=== PATIENT | female | born 1960 | race Caucasian/White ===

== ENCOUNTER 2019-05-26 21:40 | Emergency (ER) | payer MEDICARE, MEDICAID ==
[2019-05-26 22:28] VITALS: BP 144/72; PULSE 93
--- NOTE | 2019-05-26 22:42 | EDM.PDOC ---
ED HPI GENERAL MEDICAL PROBLEM - General Chief Complaint: Respiratory Problem Stated Complaint: Shortness of breath, laryngitis Time Seen by Provider: 05/26/19 22:25 Source of Information: Reports: Patient History Limitations: Reports: No Limitations - History of Present Illness INITIAL COMMENTS - FREE TEXT/NARRATIVE: Patient states she is been having a sore throat for the last 4 to 5 days with a little bit of shortness of breath and cough ongoing last 2 to 3 days states she has not been taking her inhaler as directed. States did not see her primary care provider even though she thought she needed to she is been too busy in the last 2 to 3 days. She has been placed inpatient hospital 3 to 4 years ago with shortness of breath but is never been intubated She does not use home oxygen although she says her sats are always run around about 90 every time she goes to the hospital our clinic she states she is not having any trouble breathing or feels like she is struggling to get her breath She denies any fever chills night sweats nausea or vomiting states she has had a little bit of a cough but nothing major. She says the main thing is just her losing her voice. Duration: Day(s): Improves with: Reports: Other (Patient states she has no pain) - Related Data Allergies Allergy/AdvReac Type Severity Reaction Status Date / Time No Known Allergies Allergy Verified 05/23/19 11:33 Home Meds: Home Meds Budesonide/Formoterol [Symbicort 160-4.5 MCG] 2 puff INH BID 03/09/14 [History] Calcium Citrate/Vitamin D3 [Calcitrate + Vit D Cap (315 MG/250 UNITS)] 1 each PO BIDMEALS 03/09/14 [History] Cholecalciferol (Vitamin D3) [Vitamin D3] 2,000 unit PO DAILY 03/09/14 [History] Cyanocobalamin (Vitamin B-12) [B-12] 250 mcg PO DAILY 03/09/14 [History] Esomeprazole [NexIUM] 20 mg PO DAILY 03/09/14 [History] Magnesium Oxide 800 mg PO DAILY 03/09/14 [History] Melatonin 5 mg PO BEDTIME 03/09/14 [History] Multivitamin with Minerals [Multiple Vitamin] 1 tab PO DAILY 03/09/14 [History] Sertraline [Zoloft] 200 mg PO BEDTIME 03/09/14 [History] buPROPion [Wellbutrin XL] 300 mg PO DAILY 03/09/14 [History] Acetaminophen 1,000 mg PO TID PRN 11/15/15 [History] Albuterol [Ventolin HFA] 1 inh PO Q4H PRN 11/15/15 [History] Levothyroxine 150 mcg PO DAILY 11/15/15 [History] Umeclidinium [place] [Incruse Ellipta] 1 inh PO DAILY 11/15/15 [History] busPIRone [Buspar] 45 mg PO BEDTIME 11/15/15 [History] Docusate Sodium/Sennosides [Senna Plus] 1 tab PO BID PRN 12/17/15 [History] DULoxetine [Cymbalta] 20 mg PO DAILY 01/06/16 [History] Albuterol Sulfate [Albuterol Sulfate Hfa] 1 puff Q4H PRN 04/18/19 [History] Gabapentin [Neurontin] 100 mg PO BID 04/18/19 [History] Magnesium 500 mg PO BID 04/18/19 [History] Potassium Chloride 2 tab PO BID 04/18/19 [History] Pramipexole Di-HCl [Mirapex] 0.25 mg PO BEDTIME 04/18/19 [History] Umeclidinium Brm/Vilanterol Tr [Anoro Ellipta 62.5-25 MCG] 1 puff DAILY [History] guaiFENesin 5 ml PO Q6H PRN 04/18/19 [History] tiZANidine HCl [Zanaflex] 2 mg PO TID PRN 04/18/19 [History] Past Medical History HEENT History: Reports: Cataract, Other (See Below) Other HEENT History: presbyopia. 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 ASCUS Favor Benign Musculoskeletal History: Reports: Back Pain, Chronic, Fibromyalgia, Other (See Below) Other Musculoskeletal History: leg pain Neurological History: Reports: Other (See Below) Other Neuro History: fibramyalgia Psychiatric History: Reports: Addiction, Anxiety, Depression, Schizophrenia, Suicidal Ideation, Other (See Below) Other Psychiatric History: hx of alcoholism Endocrine/Metabolic History: Reports: Hypothyroidism - Past Surgical History HEENT Surgical History: Reports: Other (See Below) GI Surgical History: Reports: Cholecystectomy Female Surgical History: Reports: Tubal Ligation Musculoskeletal Surgical History: Reports: Hip Replacement Social & Family History - Family History HEENT: Reports: Cataract Other HEENT Family History: mother-cataracts GI: Reports: Other (See Below) Other GI Family History: sister- ciliac Musculoskeletal: Reports: Arthritis Other Musculoskeletal Family History: arthritis- mother Neurological: Reports: Migraines Other Neurological Family History: migraines- sister Endocrine/Metabolic: Reports: Hypothyroidism Other Endocrine/Metabolic Family History: sister and mother - Caffeine Use Caffeine Use: Reports: Soda ED ROS GENERAL - Review of Systems Review Of Systems: See Below Constitutional: Reports: No Symptoms. Denies: Fever, Chills, Malaise, Weakness , Fatigue HEENT: Denies: Dental Pain, Nosebleed, Nose Pain, Rhinitis, Throat Pain, Throat Swelling, Vertigo, Vision Change Respiratory: Reports: Shortness of Breath, Cough. Denies: Wheezing, Pleuritic Chest Pain, Sputum, Hemoptysis Cardiovascular: Reports: No Symptoms Endocrine: Reports: No Symptoms GI/Abdominal: Reports: No Symptoms : Reports: No Symptoms Musculoskeletal: Reports: No Symptoms Skin: Reports: No Symptoms Neurological: Reports: No Symptoms Psychiatric: Reports: No Symptoms Hematologic/Lymphatic: Reports: No Symptoms Immunologic: Reports: No Symptoms ED EXAM, GENERAL - Physical Exam Exam: See Below Exam Limited By: No Limitations General Appearance: Alert, WD/WN, No Apparent Distress, Other (Patient is actively drinking Mountain Dew upon entering the room talks and 20+ word sentences with no acute distress no signs or symptoms of any respiratory distress) Eye Exam: Bilateral Eye: EOMI, PERRL Ears: Normal External Exam, Normal Canal, Hearing Grossly Normal, Normal TMs Nose: Normal Inspection, Normal Mucosa, No Blood Throat/Mouth: Normal Inspection, Normal Lips, Normal Teeth, Normal Gums, Normal Oropharynx, Normal Voice, No Airway Compromise, Other (There is no exudate in line uvula no erythema mild postnasal drainage moist mucous membranes) Head: Atraumatic, Normocephalic Neck: Normal Inspection, Supple, Non-Tender, Full Range of Motion Respiratory/Chest: No Respiratory Distress, Lungs Clear, Normal Breath Sounds, No Accessory Muscle Use, Chest Non-Tender Cardiovascular: Normal Peripheral Pulses, Regular Rate, Rhythm, No Edema, No JVD , No Murmur GI/Abdominal: Normal Bowel Sounds, Soft, Non-Tender, No Organomegaly, No Distention Extremities: Normal Inspection, Normal Range of Motion, Non-Tender, No Pedal Edema Neurological: Alert, Oriented, CN II-XII Intact, Normal Cognition, Normal Gait, No Motor/Sensory Deficits Psychiatric: Normal Affect, Normal Mood Skin Exam: Warm, Dry, Intact, Normal Color Lymphatic: No Adenopathy Course - Vital Signs Text/Narrative:: Patient has Symbicort, albuterol inhaler she was instructed to use them as directed she was then instructed to increase her water intake and decrease the amount of caffeine she will be given Decadron 4 mg Solu-Medrol 125 mg told to follow-up with a primary care provider in the next 24 hours which she states she is okay with Last Recorded V/S: Last Vital Signs Temp 37.6 C 05/26/19 21:40 Pulse 93 05/26/19 21:40 Resp 20 05/26/19 21:40 BP 144/72 H 05/26/19 21:40 Pulse Ox 90 L 05/26/19 21:40 - Orders/Labs/Meds Orders: Active Orders 24 hr Category Date Time Status dexAMETHasone [Dexamethasone] Med 05/26/19 22:36 Once 4 mg IM ONETIME ONE methylPREDNISolone Sod Succ [Solu-MEDROL] Med 05/26/19 22:37 Once 125 mg IM ONETIME ONE Departure - Departure Time of Disposition: 22:50 Disposition: Home, Self-Care 01 Condition: Good Clinical Impression: Laryngitis, SOB (shortness of breath) - Discharge Information *PRESCRIPTION DRUG MONITORING PROGRAM REVIEWED*: No *COPY OF PRESCRIPTION DRUG MONITORING REPORT IN PATIENT AMADOU: No Referrals: Eden Kitchen DO [Primary Care Provider] - Sepsis Event Note - Evaluation Sepsis Screening Result: No Definite Risk - Focused Exam Vital Signs: Vital Signs Temp Pulse Resp BP Pulse Ox 05/26/19 21:40 37.6 C 93 20 144/72 H 90 L Date Exam was Performed: 05/26/19 Time Exam was Performed: 22:37 - Problem List & Annotations (1) Laryngitis SNOMED Code(s): 07284864 Code(s): J04.0 - ACUTE LARYNGITIS Status: Acute Current Visit: Yes (2) SOB (shortness of breath) SNOMED Code(s): 633778736 Code(s): R06.02 - SHORTNESS OF BREATH Status: Acute Current Visit: Yes - My Orders Last 24 Hours: My Active Orders 05/26/19 22:36 dexAMETHasone [Dexamethasone] 4 mg IM ONETIME ONE 05/26/19 22:37 methylPREDNISolone Sod Succ [Solu-MEDROL] 125 mg IM ONETIME ONE - Assessment/Plan Last 24 Hours: My Active Orders 05/26/19 22:36 dexAMETHasone [Dexamethasone] 4 mg IM ONETIME ONE 05/26/19 22:37 methylPREDNISolone Sod Succ [Solu-MEDROL] 125 mg IM ONETIME ONE
[2019-05-26] MEDS: methylPREDNISolone Sodium Succinate 125 MG/2 ML SDV IM ONE (22:45)
[2019-05-26] MEDS: Dexamethasone 4 MG/ML SDV IM ONE (22:46)
== END 2019-05-26 22:54 | disposition home or self-care (01) ==
LOC: VM.ED 21:40
DX: J04.0 Acute laryngitis (principal); R06.02 Shortness of breath; I11.0 Hypertensive heart disease with heart failure; I50.9 Heart failure, unspecified; E78.00 Pure hypercholesterolemia, unspecified; J44.9 Chronic obstructive pulmonary disease, unspecified; K21.9 Gastro-esophageal reflux disease without esophagitis; E03.9 Hypothyroidism, unspecified; F41.9 Anxiety disorder, unspecified; F32.9 Major depressive disorder, single episode, unspecified; M79.7 Fibromyalgia; F20.9 Schizophrenia, unspecified; Z79.51 Long term (current) use of inhaled steroids; Z79.899 Other long term (current) drug therapy; Z79.890 Hormone replacement therapy
CPT/HCPCS: 96372; 99282; 99283-GF; J1100; J2930

== ENCOUNTER 2019-07-10 20:55 | Emergency (ER) | payer MEDICARE, MEDICAID, OTHER ==
[2019-07-10] MEDS ORDERED: Sodium Chloride 0.9% 10 ML Syringe FLUSH PRN (21:00)
[2019-07-10] MEDS ORDERED: Magnesium Sulfate/Water 2 GM in Premix Bag 1 BAG IV ONE (21:02)
[2019-07-10] MEDS ORDERED: Albuterol 0.083% 2.5 MG/3 ML Neb Soln NEB ONE ×3 (21:02→22:22)
[2019-07-10] MEDS ORDERED: Budesonide 0.5 MG/2 ML Neb Susp NEB ONE (21:11)
[2019-07-10] MEDS ORDERED: Morphine 2 MG/ML Syringe IVPUSH ONE (21:21)
[2019-07-10] MEDS ORDERED: cefTRIAXone 2 GM Vial IVPUSH ONE (21:22)
[2019-07-10] MEDS ORDERED: Azithromycin 500 MG in Sodium Chloride 0.9% 250 ML IV ONE (21:22)
[2019-07-10] MEDS ORDERED: methylPREDNISolone Sodium Succinate 125 MG/2 ML SDV IVPUSH ONE (21:30)
[2019-07-10] MEDS ORDERED: Lactated Ringers 1,000 ML IV ONE (21:45)
--- NOTE | 2019-07-10 22:02 | EDM.PDOC ---
ED HPI GENERAL MEDICAL PROBLEM - General Stated Complaint: SOB Time Seen by Provider: 07/10/19 20:55 Source of Information: Reports: EMS History Limitations: Reports: Respiratory Distress - History of Present Illness INITIAL COMMENTS - FREE TEXT/NARRATIVE: Patient comes emergency department today by ambulance with concerns of severe respiratory distress. HPI of this patient is very limited due to the patient's severe respiratory distress upon arrival. According to EMS she has a well- known long-term COPD patient. Yesterday she became more short of breath. She has been using her nebulizers without much relief. Oxygen saturation on EMS arrival was in the 60s. She was given a DuoNeb in the 125 mg of Solu-Medrol IV push. As well as supplemental oxygenation. The rest of the HPI is unobtainable patient severe respiratory distress. Although upon arrival she was able to answer minimal yes and no questions and does not want to be intubated. No fevers no recent travel no exposure to anyone ill. Although she has not been quarantining herself to the house. - Related Data Allergies Allergy/AdvReac Type Severity Reaction Status Date / Time No Known Allergies Allergy Verified 05/23/19 11:33 Home Meds: Home Meds Budesonide/Formoterol [Symbicort 160-4.5 MCG] 2 puff INH BID 03/09/14 [History] Calcium Citrate/Vitamin D3 [Calcitrate + Vit D Cap (315 MG/250 UNITS)] 1 each PO BIDMEALS 03/09/14 [History] Cholecalciferol (Vitamin D3) [Vitamin D3] 2,000 unit PO DAILY 03/09/14 [History] Cyanocobalamin (Vitamin B-12) [B-12] 250 mcg PO DAILY 03/09/14 [History] Esomeprazole [NexIUM] 20 mg PO DAILY 03/09/14 [History] Magnesium Oxide 800 mg PO DAILY 03/09/14 [History] Melatonin 5 mg PO BEDTIME 03/09/14 [History] Multivitamin with Minerals [Multiple Vitamin] 1 tab PO DAILY 03/09/14 [History] Sertraline [Zoloft] 200 mg PO BEDTIME 03/09/14 [History] buPROPion [Wellbutrin XL] 300 mg PO DAILY 03/09/14 [History] Acetaminophen 1,000 mg PO TID PRN 11/15/15 [History] Albuterol [Ventolin HFA] 1 inh PO Q4H PRN 11/15/15 [History] Levothyroxine 150 mcg PO DAILY 11/15/15 [History] Umeclidinium Dawson [Incruse Ellipta] 1 inh PO DAILY 11/15/15 [History] busPIRone [Buspar] 45 mg PO BEDTIME 11/15/15 [History] Docusate Sodium/Sennosides [Senna Plus] 1 tab PO BID PRN 12/17/15 [History] DULoxetine [Cymbalta] 20 mg PO DAILY 01/06/16 [History] Albuterol Sulfate [Albuterol Sulfate Hfa] 1 puff Q4H PRN 04/18/19 [History] Gabapentin [Neurontin] 100 mg PO BID 04/18/19 [History] Magnesium 500 mg PO BID 04/18/19 [History] Potassium Chloride 2 tab PO BID 04/18/19 [History] Pramipexole Di-HCl [Mirapex] 0.25 mg PO BEDTIME 04/18/19 [History] Umeclidinium Brm/Vilanterol Tr [Anoro Ellipta 62.5-25 MCG] 1 puff DAILY [History] guaiFENesin 5 ml PO Q6H PRN 04/18/19 [History] tiZANidine HCl [Zanaflex] 2 mg PO TID PRN 04/18/19 [History] Past Medical History HEENT History: Reports: Cataract, Other (See Below) Other HEENT History: presbyopia. 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 ASCUS Favor Benign Musculoskeletal History: Reports: Back Pain, Chronic, Fibromyalgia, Other (See Below) Other Musculoskeletal History: leg pain Neurological History: Reports: Other (See Below) Other Neuro History: fibramyalgia Psychiatric History: Reports: Addiction, Anxiety, Depression, Schizophrenia, Suicidal Ideation, Other (See Below) Other Psychiatric History: hx of alcoholism Endocrine/Metabolic History: Reports: Hypothyroidism - Past Surgical History HEENT Surgical History: Reports: Other (See Below) GI Surgical History: Reports: Cholecystectomy Female Surgical History: Reports: Tubal Ligation Musculoskeletal Surgical History: Reports: Hip Replacement Social & Family History - Family History HEENT: Reports: Cataract Other HEENT Family History: mother-cataracts GI: Reports: Other (See Below) Other GI Family History: sister- ciliac Musculoskeletal: Reports: Arthritis Other Musculoskeletal Family History: arthritis- mother Neurological: Reports: Migraines Other Neurological Family History: migraines- sister Endocrine/Metabolic: Reports: Hypothyroidism Other Endocrine/Metabolic Family History: sister and mother - Caffeine Use Caffeine Use: Reports: Soda ED ROS GENERAL - Review of Systems Review Of Systems: Unable To Obtain Reason Not Obtained: Severe respiratory distress. ED EXAM, GENERAL - Physical Exam Exam: See Below Free Text/Narrative:: Patient arrives in clear severe respiratory distress. She is barely able to say yes or no questions. She is holding her airway and holding her head up and she is alert. She is quite ashen and somewhat cyanotic from head to toe. She has minimal air movement on her breath sounds bilaterally. Exam Limited By: Respiratory Distress General Appearance: Severe Distress Eye Exam: Bilateral Eye: EOMI, PERRL Ears: Normal External Exam Nose: Normal Inspection Throat/Mouth: No: Normal Inspection (Lips are very dry as well as her mouth. ) Head: Atraumatic, Normocephalic Neck: Normal Inspection, Supple Respiratory/Chest: Chest Non-Tender, Respiratory Distress, Decreased Breath Sounds, Crackles (Fine inspiratory crackles bilaterally bases. ), Wheezing, Accessory Muscle Use, Retractions Cardiovascular: Normal Peripheral Pulses, Regular Rate, Rhythm, Tachycardia GI/Abdominal: Normal Bowel Sounds, Soft (Female) Exam: Deferred Rectal (Female) Exam: Deferred Neurological: Alert Psychiatric: Anxious Skin Exam: Cool, Cyanosis, Diaphoretic Course - Orders/Labs/Meds Orders: Active Orders 24 hr Category Date Time Status BIPAP Adult [RT BiPAP/CPAP] [RC] ASDIRECTED Care 07/10/19 21:14 Active EKG Documentation Completion [RC] STAT Care 07/10/19 21:00 Active RT Aerosol Therapy [RC] ASDIRECTED Care 07/10/19 21:02 Active RT Aerosol Therapy [RC] ASDIRECTED Care 07/10/19 21:11 Active RT Aerosol Therapy [RC] ASDIRECTED Care 07/10/19 21:14 Active RT Aerosol Therapy [RC] ASDIRECTED Care 07/10/19 22:23 Active Chest 1V Frontal [CR] Stat Exams 07/10/19 21:00 Taken CULTURE BLOOD [BC] Stat Lab 07/10/19 21:22 Received CULTURE BLOOD [BC] Stat Lab 07/10/19 22:01 Received Sodium Chloride 0.9% [Saline Flush] Med 07/10/19 21:00 Active 10 ml FLUSH ASDIRECTED PRN Blood Culture x2 Reflex Set [OM.PC] Stat Oth 07/10/19 21:00 Ordered Peripheral IV Insertion Adult [OM.PC] Stat Oth 07/10/19 21:00 Ordered Medication Orders Sodium Chloride (Saline Flush) 10 ml FLUSH ASDIRECTED PRN PRN Reason: Keep Vein Open Labs: Laboratory Tests 07/10/19 07/10/19 07/10/19 Range/Units 21:10 21:22 21:22 WBC 22.0 H* (4.0-10.0) x10^3/uL RBC 4.83 (4.00-5.50) x10^6/uL Hgb 13.3 D (12.0-16.0) g/dL Hct 41.5 (33.0-47.0) % MCV 85.9 D (78.0-93.0) fL MCH 27.5 (26.0-32.0) pg MCHC 32.0 (32.0-36.0) g/dL RDW Coeff of Ksenia 13.5 (10.0-15.0) % Plt Count 186 (130-400) x10^3/uL Neut % (Auto) Delivery Person Lymph % (Auto) Delivery Person Meigs % (Auto) Delivery Person Eos % (Auto) Delivery Person Baso % (Auto) Delivery Person Add Manual Diff Yes Neutrophils % (Manual) 86 H (50-80) % Band Neutrophils % 2 (0-6) % Lymphocytes % (Manual) 10 L (25-50) % Monocytes % (Manual) 1 L (2-11) % Eosinophils % (Manual) 1 (0-4) % Platelet Estimate Adequate POC ABG pH 7.329 L (7.35-7.45) POC ABG pCO2 59 H (35-45) mmHG POC ABG pO2 84 (80-105) mmHG POC ABG HCO3 31 H (22-26) mmol/L POC ABG Total CO2 33 H (23-27) mmol/L POC ABG O2 Sat 95 (95-98) % POC ABG Base Excess 5 H (-2-3) mmol/L POC VBG pH (7.31-7.41) POC VBG pCO2 (41-51) POC VBG pO2 POC VBG HCO3 (23-28) POC VBG Total CO2 (24-29) POC VBG Base Excess ((-2) - 3) O2 Delivery Device POC FiO2 0.40 Sodium 139 (136-145) mmol/L Potassium 4.0 (3.5-5.1) mmol/L Chloride 98 (98-107) mmol/L Carbon Dioxide 30 (21-32) mmol/L Anion Gap 15.0 (10-20) mmol/L BUN 10 (7-18) mg/dL Creatinine 1.0 (0.55-1.02) mg/dL Est Cr Clr Drug Dosing TNP Estimated GFR (MDRD) 57 Glucose 141 H (74-106) mg/dL Lactic Acid (0.4-2.0) mmol/L Calcium 9.1 (8.5-10.1) mg/dL Corrected Calcium 9.34 (8.5-10.1) mg/dL Magnesium (1.8-2.4) mg/dL Total Bilirubin 0.4 (0.2-1.0) mg/dL AST 22 (15-37) U/L ALT 30 (14-59) U/L Alkaline Phosphatase 139 H (46-116) U/L Troponin I < 0.017 (<=0.056) ng/mL C-Reactive Protein 13.2 H (<=0.9) mg/dL NT-Pro-B Natriuret Pep (<=125) pg/mL Total Protein 8.2 (6.4-8.2) g/dL Albumin 3.7 (3.4-5.0) g/dL Globulin 4.5 Albumin/Globulin Ratio 0.82 Urine Color (YELLOW) Urine Appearance (CLEAR) Urine pH (5.0-8.0) Ur Specific [place] Urine Protein (NEGATIVE) mg/dL Urine Glucose (UA) (NEGATIVE) mg/dL Urine Ketones (NEGATIVE) mg/dL Urine Occult Blood (NEGATIVE) Urine Nitrite (NEGATIVE) Urine Bilirubin (NEGATIVE) Urine Urobilinogen (0.2) EU/dL Ur Leukocyte Esterase (NEGATIVE) Urine RBC (NOT SEEN) /HPF Urine WBC (NOT SEEN) /HPF Ur Squamous Epith Cells (NEGATIVE) /HPF Urine Bacteria (NEGATIVE) /HPF Urine Mucus (NEGATIVE) /LPF 07/10/19 07/10/19 07/10/19 Range/Units 21:22 21:22 22:07 WBC (4.0-10.0) x10^3/uL RBC (4.00-5.50) x10^6/uL Hgb (12.0-16.0) g/dL Hct (33.0-47.0) % MCV (78.0-93.0) fL MCH (26.0-32.0) pg MCHC (32.0-36.0) g/dL RDW Coeff of Ksenia (10.0-15.0) % Plt Count (130-400) x10^3/uL Neut % (Auto) Lymph % (Auto) Meigs % (Auto) Eos % (Auto) Baso % (Auto) Add Manual Diff Neutrophils % (Manual) (50-80) % Band Neutrophils % (0-6) % Lymphocytes % (Manual) (25-50) % Monocytes % (Manual) (2-11) % Eosinophils % (Manual) (0-4) % Platelet Estimate POC ABG pH (7.35-7.45) POC ABG pCO2 (35-45) mmHG POC ABG pO2 (80-105) mmHG POC ABG HCO3 (22-26) mmol/L POC ABG Total CO2 (23-27) mmol/L POC ABG O2 Sat (95-98) % POC ABG Base Excess (-2-3) mmol/L POC VBG pH 7.31 (7.31-7.41) POC VBG pCO2 61 H (41-51) POC VBG pO2 39 POC VBG HCO3 31 H (23-28) POC VBG Total CO2 33 H (24-29) POC VBG Base Excess 4 H ((-2) - 3) O2 Delivery Device Bipap POC FiO2 Sodium (136-145) mmol/L Potassium (3.5-5.1) mmol/L Chloride (98-107) mmol/L Carbon Dioxide (21-32) mmol/L Anion Gap (10-20) mmol/L BUN (7-18) mg/dL Creatinine (0.55-1.02) mg/dL Est Cr Clr Drug Dosing Estimated GFR (MDRD) Glucose (74-106) mg/dL Lactic Acid 1.2 (0.4-2.0) mmol/L Calcium (8.5-10.1) mg/dL Corrected Calcium (8.5-10.1) mg/dL Magnesium 1.8 (1.8-2.4) mg/dL Total Bilirubin (0.2-1.0) mg/dL AST (15-37) U/L ALT (14-59) U/L Alkaline Phosphatase (46-116) U/L Troponin I (<=0.056) ng/mL C-Reactive Protein (<=0.9) mg/dL NT-Pro-B Natriuret Pep 151 H (<=125) pg/mL Total Protein (6.4-8.2) g/dL Albumin (3.4-5.0) g/dL Globulin Albumin/Globulin Ratio Urine Color (YELLOW) Urine Appearance (CLEAR) Urine pH (5.0-8.0) Ur Specific [place] Urine Protein (NEGATIVE) mg/dL Urine Glucose (UA) (NEGATIVE) mg/dL Urine Ketones (NEGATIVE) mg/dL Urine Occult Blood (NEGATIVE) Urine Nitrite (NEGATIVE) Urine Bilirubin (NEGATIVE) Urine Urobilinogen (0.2) EU/dL Ur Leukocyte Esterase (NEGATIVE) Urine RBC (NOT SEEN) /HPF Urine WBC (NOT SEEN) /HPF Ur Squamous Epith Cells (NEGATIVE) /HPF Urine Bacteria (NEGATIVE) /HPF Urine Mucus (NEGATIVE) /LPF 07/10/19 Range/Units 23:40 WBC (4.0-10.0) x10^3/uL RBC (4.00-5.50) x10^6/uL Hgb (12.0-16.0) g/dL Hct (33.0-47.0) % MCV (78.0-93.0) fL MCH (26.0-32.0) pg MCHC (32.0-36.0) g/dL RDW Coeff of Ksenia (10.0-15.0) % Plt Count (130-400) x10^3/uL Neut % (Auto) Lymph % (Auto) [place] % (Auto) Eos % (Auto) Baso % (Auto) Add Manual Diff Neutrophils % (Manual) (50-80) % Band Neutrophils % (0-6) % Lymphocytes % (Manual) (25-50) % Monocytes % (Manual) (2-11) % Eosinophils % (Manual) (0-4) % Platelet Estimate POC ABG pH (7.35-7.45) POC ABG pCO2 (35-45) mmHG POC ABG pO2 (80-105) mmHG POC ABG HCO3 (22-26) mmol/L POC ABG Total CO2 (23-27) mmol/L POC ABG O2 Sat (95-98) % POC ABG Base Excess (-2-3) mmol/L POC VBG pH (7.31-7.41) POC VBG pCO2 (41-51) POC VBG pO2 POC VBG HCO3 (23-28) POC VBG Total CO2 (24-29) POC VBG Base Excess ((-2) - 3) O2 Delivery Device POC FiO2 Sodium (136-145) mmol/L Potassium (3.5-5.1) mmol/L Chloride (98-107) mmol/L Carbon Dioxide (21-32) mmol/L Anion Gap (10-20) mmol/L BUN (7-18) mg/dL Creatinine (0.55-1.02) mg/dL Est Cr Clr Drug Dosing Estimated GFR (MDRD) Glucose (74-106) mg/dL Lactic Acid (0.4-2.0) mmol/L Calcium (8.5-10.1) mg/dL Corrected Calcium (8.5-10.1) mg/dL Magnesium (1.8-2.4) mg/dL Total Bilirubin (0.2-1.0) mg/dL AST (15-37) U/L ALT (14-59) U/L Alkaline Phosphatase (46-116) U/L Troponin I (<=0.056) ng/mL C-Reactive Protein (<=0.9) mg/dL NT-Pro-B Natriuret Pep (<=125) pg/mL Total Protein (6.4-8.2) g/dL Albumin (3.4-5.0) g/dL Globulin Albumin/Globulin Ratio Urine Color Yellow (YELLOW) Urine Appearance Clear (CLEAR) Urine pH 5.5 (5.0-8.0) Ur Specific [place] >=1.030 Urine Protein Trace H (NEGATIVE) mg/dL Urine Glucose (UA) Negative (NEGATIVE) mg/dL Urine Ketones Negative (NEGATIVE) mg/dL Urine Occult Blood Negative (NEGATIVE) Urine Nitrite Negative (NEGATIVE) Urine Bilirubin Negative (NEGATIVE) Urine Urobilinogen 0.2 (0.2) EU/dL Ur Leukocyte Esterase Trace H (NEGATIVE) Urine RBC 0-5 (NOT SEEN) /HPF Urine WBC 0-5 (NOT SEEN) /HPF Ur Squamous Epith Cells Moderate H (NEGATIVE) /HPF Urine Bacteria Occasional H (NEGATIVE) /HPF Urine Mucus Rare H (NEGATIVE) /LPF Microbiology 07/10/19 22:30 Nasopharyngeal Swab - Nare, Right Influenza Type A Antigen Screen - Final NEGATIVE INFLUENZA A VIRUS AG REFERENCE RANGE: NEGATIVE 07/10/19 22:30 Nasopharyngeal Swab - Nare, Right Influenza Type B Antigen Screen - Final NEGATIVE INFLUENZA B VIRUS AG REFERENCE RANGE: NEGATIVE Meds: Medications Generic Name Dose Route Start Last Admin Trade Name Freq PRN Reason Stop Dose Admin Sodium Chloride 10 ml 07/10/19 21:00 Saline Flush FLUSH ASDIRECTED PRN Keep Vein Open Discontinued Medications Generic Name Dose Route Start Last Admin Trade Name Freq PRN Reason Stop Dose Admin Albuterol 2.5 mg 07/10/19 21:02 07/10/19 21:08 Proventil Neb Soln [facility] 07/10/19 21:03 2.5 mg ONETIME ONE Administration Albuterol 2.5 mg 07/10/19 21:13 07/10/19 21:10 Proventil Neb Soln [facility] 07/10/19 21:14 2.5 mg ONETIME ONE Administration Albuterol 2.5 mg 07/10/19 22:22 Proventil Neb Soln [facility] 07/10/19 22:23 ONETIME ONE Budesonide 1 mg 07/10/19 21:11 07/10/19 21:22 Pulmicort [facility] 07/10/19 21:12 1 mg ONETIME ONE Administration Ceftriaxone Sodium 2 gm 07/10/19 21:22 07/10/19 21:38 Rocephin IVPUSH 07/10/19 21:23 2 gm STAT ONE Administration Magnesium Sulfate 2 gm/ Premix 50 mls @ 25 mls/hr 07/10/19 21:02 07/10/19 21: 20 IV 07/10/19 23:01 200 mls/hr ONETIME ONE Administration Azithromycin 500 mg/ Sodium 250 mls @ 250 mls/hr 07/10/19 21:22 07/10/19 21: 46 Chloride IV 07/10/19 22:21 250 mls/hr STAT ONE Administration Lactated Ringer's 1,000 mls @ 999 mls/hr 07/10/19 21:45 07/10/19 21:50 Ringers, Lactated IV 07/10/19 22:45 999 mls/hr ONETIME ONE Administration Methylprednisolone Sodium Succinate 125 mg 07/10/19 21:30 07/10/19 21:46 Solu-Medrol IVPUSH 07/10/19 21:31 125 mg ONETIME ONE Administration Morphine Sulfate 2 mg 07/10/19 21:21 07/10/19 21:33 Morphine IVPUSH 07/10/19 21:22 2 mg ONETIME ONE Administration - Radiology Interpretation Free Text/Narrative:: Chest x-ray per radiology shows no significant abnormalities. Stable interstitial fibrosis. Heart size is normal. Old rib fractures with agent pleural scarring. - Re-Assessments/Exams Free Text/Narrative Re-Assessment/Exam: 07/10/19 arrival She has severe respiratory distress hypoxia with a sat probe reading in the 50s on arrival. She is refusing intubation. She was started on BiPAP S/T and EPAP of 15 and an IPAP of 7. Initially started off on 100% oxygenation. Was given DuoNeb nebulizer through the BiPAP as well as 1 mg of budesonide. Is also given an extra 125 mg of Solu-Medrol. Being on the BiPAP for about 10 minutes the patient was much more alert than she was on arrival. Her skin is pink warm and dry but she is still quite tachypneic in the mid 30s. Blood cultures x2 pending. Arterial blood gases show respiratory acidosis with hypercapnia. PO2 84 on the BiPAP. PCo2 59 PH 7.32 She was also given magnesium sulfate 2 g IV piggyback. Morphine 2 mg for comfort Ceftriaxone 2 grams IVP Azithromycin 500mg IVPB 07/10/19 22:12 She is sitting up alert appropriate. Her skin is pink warm and dry. She has much improved lung sounds. She is still quite tachypneic although her accessory muscle use has resolved. Does have a quite elevated white blood cell count of 22. She had previously received Rocephin and Azithromycin as above. 07/11/19 00:28 The patient was swabbed for covid. I did attempt to drop the settings on the patient for her BIpap and she became more tachypneic and sats would drop. I called and spoke with Dr. Flor Pride at [facility] in [place]. HPI ER COURSE findings and concerns were relayed to DR. Pride. Her questions were answered and she was accepted in transfer with continued Bipap enroute to [facility]. I discussed the plan of care with the patient she was comfortable with this plan and her questions answered. As of note her voice is very hoarse and has been for the past month. Departure - Departure Time of Disposition: 23:00 Disposition: DC/Tfer to [facility] 02 Clinical Impression: Hypoxemia, Acute exacerbation of chronic obstructive pulmonary disease (COPD) - Discharge Information Referrals: Eden Kitchen DO [Primary Care Provider] - Forms: ED Department Discharge, Interfacility Transfer LIZZY Critical Care Note - Critical Care Note Total Time (mins): 65 Comments: 65 minutes of CC time in direct management and multiple re-assessments of this patient in rear respiratory failure requiring close monitoring and management of the Bipap and consultation with SPecialist at [facility]. Sepsis Event Note - Focused Exam Date Exam was Performed: 07/11/19 Time Exam was Performed: 00:28 - My Orders Last 24 Hours: My Active Orders 07/10/19 21:00 EKG Documentation Completion [RC] STAT Chest 1V Frontal [CR] Stat Sodium Chloride 0.9% [Saline Flush] 10 ml FLUSH ASDIRECTED PRN Blood Culture x2 Reflex Set [OM.PC] Stat Peripheral IV Insertion Adult [OM.PC] Stat 07/10/19 21:02 RT Aerosol Therapy [RC] ASDIRECTED 07/10/19 21:11 RT Aerosol Therapy [RC] ASDIRECTED 07/10/19 21:14 BIPAP Adult [RT BiPAP/CPAP] [RC] ASDIRECTED RT Aerosol Therapy [RC] ASDIRECTED 07/10/19 21:22 CULTURE BLOOD [BC] Stat 07/10/19 22:01 CULTURE BLOOD [BC] Stat 07/10/19 22:23 RT Aerosol Therapy [RC] ASDIRECTED - Assessment/Plan Last 24 Hours: My Active Orders 07/10/19 21:00 EKG Documentation Completion [RC] STAT Chest 1V Frontal [CR] Stat Sodium Chloride 0.9% [Saline Flush] 10 ml FLUSH ASDIRECTED PRN Blood Culture x2 Reflex Set [OM.PC] Stat Peripheral IV Insertion Adult [OM.PC] Stat 07/10/19 21:02 RT Aerosol Therapy [RC] ASDIRECTED 07/10/19 21:11 RT Aerosol Therapy [RC] ASDIRECTED 07/10/19 21:14 BIPAP Adult [RT BiPAP/CPAP] [RC] ASDIRECTED RT Aerosol Therapy [RC] ASDIRECTED 07/10/19 21:22 CULTURE BLOOD [BC] Stat 07/10/19 22:01 CULTURE BLOOD [BC] Stat 07/10/19 22:23 RT Aerosol Therapy [RC] ASDIRECTED Assessment:: Severe COPD exacerbation with respiratory decompensation requiring Bipap ventilation. Hypoxia Acute on Chronic respiratory hypercapnea Leukocytosis Plan: Transfer to [facility] on Bipap for continued care and management.
[2019-07-10 22:07] LABS: CHLORIDE,CL 98 mmol/L (98-107); SODIUM,NA 139 mmol/L (136-145)
--- NOTE | 2019-07-11 08:08 | CR ---
[id number] RAD/RAD Chest PA or AP 1V EXAM: SINGLE VIEW CHEST. INDICATION: SMALL BOWEL OBSTRUCTION COMPARISON: CORRELATION IS MADE WITH NOVEMBER 15, 2015 FINDINGS: A round density is seen at the left lung base Consider follow-up PA and lateral chest radiograph There is minimal pleural reaction bilaterally The cardiomediastinal contour is stable There is question of bilateral old rib fractures IMPRESSION: FAINT DENSITY LEFT BASE CONSIDER FOLLOW-UP PA AND LATERAL CHEST. Tian Perez MD 07/11/19 0807 Thank you for allowing us to participate in the care of your patient.
== END 2019-07-11 00:10 | disposition short-term general hospital (02) ==
LOC: VM.ED 20:55
DX: J44.1 Chronic obstructive pulmonary disease with (acute) exacerbation (principal); R09.02 Hypoxemia; I11.0 Hypertensive heart disease with heart failure; I50.9 Heart failure, unspecified; E78.00 Pure hypercholesterolemia, unspecified; K21.9 Gastro-esophageal reflux disease without esophagitis; F41.9 Anxiety disorder, unspecified; F32.9 Major depressive disorder, single episode, unspecified; E03.9 Hypothyroidism, unspecified; Z79.899 Other long term (current) drug therapy
CPT/HCPCS: 36415; 71045; 80053; 81001; 82803; 83605; 83735; 83880; 84484; 85025; 86140; 87040; 87804; 87804-59; 93005; 94640; 94660; 96361; 96365; 96367; 96375; 99291; 99291-25; J0456; J0696; J2270; J2930; J3475; J7050; J7120; J7613-GY; U0002

== ENCOUNTER 2019-09-13 07:04 | Emergency (ER) | payer MEDICARE, MEDICAID ==
[2019-09-13 07:43] VITALS: BP 139/75; PULSE 93
--- NOTE | 2019-09-13 08:27 | EDM.PDOC ---
ED HPI GENERAL MEDICAL PROBLEM - General Chief Complaint: Lower Extremity Injury/Pain Stated Complaint: PAIN Time Seen by Provider: 09/13/19 08:05 Source of Information: Reports: Patient History Limitations: Reports: Combative/Threatening - History of Present Illness INITIAL COMMENTS - FREE TEXT/NARRATIVE: The patient comes to the emergency department today from home with complaints of left buttocks and leg pain. The patient reports that for the past 7 years she has had pain in her left leg. Approximately 7 years ago she had some type of accident or fall where she broke her femur. Since that time she has had consistent chronic pain in the left leg. Over the past 7 years the pain is slowly change from just the mid lateral aspect of the femur and is now gone to her buttocks and radiates down the middle aspect of her left buttocks and down the lateral aspect of her left leg. She has seen her primary care for this multiple times over the past 7 years. Her pain is really no worse today than it has been for the past 7 years. She has no recent falls trauma. She has no paresthesias over the lower extremities. No change in the functionality of her lower extremities. No loss of bowel or bladder. emergency department today after 7 years of this chronic pain that is no worse today because she is tired of the pain and does not know what to do about it. She has not seen her primary care provider since June. Has not taken anything for pain. She has never seen physical therapy for this pain. She has received x-rays of the femur but no other work-up in the past 7 years she reports. Leg Pain Score (Numeric/FACES): 7 - Related Data Allergies Allergy/AdvReac Type Severity Reaction Status Date / Time No Known Allergies Allergy Verified 09/13/19 07:55 Home Meds: Home Meds Budesonide/Formoterol [Symbicort 160-4.5 MCG] 2 puff INH BID 03/09/14 [History] Calcium Citrate/Vitamin D3 [Calcitrate + Vit D Cap (315 MG/250 UNITS)] 1 each PO BIDMEALS 03/09/14 [History] Cholecalciferol (Vitamin D3) [Vitamin D3] 2,000 unit PO DAILY 03/09/14 [History] Cyanocobalamin (Vitamin B-12) [B-12] 250 mcg PO DAILY 03/09/14 [History] Esomeprazole [NexIUM] 20 mg PO DAILY 03/09/14 [History] Magnesium Oxide 800 mg PO DAILY 03/09/14 [History] Melatonin 5 mg PO BEDTIME 03/09/14 [History] Multivitamin with Minerals [Multiple Vitamin] 1 tab PO DAILY 03/09/14 [History] Sertraline [Zoloft] 200 mg PO BEDTIME 03/09/14 [History] buPROPion [Wellbutrin XL] 300 mg PO DAILY 03/09/14 [History] Acetaminophen 1,000 mg PO TID PRN 11/15/15 [History] Albuterol [Ventolin HFA] 1 inh PO Q4H PRN 11/15/15 [History] Levothyroxine 150 mcg PO DAILY 11/15/15 [History] Umeclidinium [place] [Incruse Ellipta] 1 inh PO DAILY 11/15/15 [History] busPIRone [Buspar] 45 mg PO BEDTIME 11/15/15 [History] Docusate Sodium/Sennosides [Senna Plus] 1 tab PO BID PRN 12/17/15 [History] DULoxetine [Cymbalta] 20 mg PO DAILY 01/06/16 [History] Albuterol Sulfate [Albuterol Sulfate Hfa] 1 puff Q4H PRN 04/18/19 [History] Gabapentin [Neurontin] 100 mg PO BID 04/18/19 [History] Magnesium 500 mg PO BID 04/18/19 [History] Potassium Chloride 2 tab PO BID 04/18/19 [History] Pramipexole Di-HCl [Mirapex] 0.25 mg PO BEDTIME 04/18/19 [History] Umeclidinium Brm/Vilanterol Tr [Anoro Ellipta 62.5-25 MCG] 1 puff DAILY [History] guaiFENesin 5 ml PO Q6H PRN 04/18/19 [History] tiZANidine HCl [Zanaflex] 2 mg PO TID PRN 04/18/19 [History] Past Medical History HEENT History: Reports: Cataract, Other (See Below) Other HEENT History: presbyopia. myopia Cardiovascular History: Reports: Heart Failure, High Cholesterol, Hypertension, SOB on Exertion Respiratory History: Reports: COPD, PE, Sleep Apnea, Other (See Below) Other Respiratory History: oxygen dependent Gastrointestinal History: Reports: Gastritis, GERD, Hepatitis, Hiatal Hernia Genitourinary History: Reports: Other (See Below) Other Genitourinary History: stress incontinence HADOOP CONSULTANT History: Reports: Other (See Below) Other HADOOP CONSULTANT History: metrorrhagia. ASCUS Favor Benign Musculoskeletal History: Reports: Back Pain, Chronic, Fibromyalgia, Other (See Below) Other Musculoskeletal History: leg pain Neurological History: Reports: Other (See Below) Other Neuro History: fibramyalgia Psychiatric History: Reports: Addiction, Anxiety, Depression, Schizophrenia, Suicidal Ideation, Other (See Below) Other Psychiatric History: hx of alcoholism Endocrine/Metabolic History: Reports: Hypothyroidism - Past Surgical History HEENT Surgical History: Reports: Other (See Below) GI Surgical History: Reports: Cholecystectomy Female Surgical History: Reports: Tubal Ligation Musculoskeletal Surgical History: Reports: Hip Replacement Social & Family History - Family History HEENT: Reports: Cataract Other HEENT Family History: mother-cataracts GI: Reports: Other (See Below) Other GI Family History: sister- ciliac Musculoskeletal: Reports: Arthritis Other Musculoskeletal Family History: arthritis- mother Neurological: Reports: Migraines Other Neurological Family History: migraines- sister Endocrine/Metabolic: Reports: Hypothyroidism Other Endocrine/Metabolic Family History: sister and mother - Tobacco Use Smoking Status *Q: Former Smoker Used Tobacco, but Quit: Yes Month/Year Tobacco Last Used: 2016 - Caffeine Use Caffeine Use: Reports: Soda - Recreational Drug Use Recreational Drug Use: No Review of Systems - Review of Systems Review Of Systems: Unable To Obtain Reason Not Obtained: Pt became very upset during the history taking and eloped ED EXAM, GENERAL - Physical Exam Exam: Not Obtained Reason Not Obtained: The patient became very upset agitated during the HPI and eloped. Course - Vital Signs Last Recorded V/S: Last Vital Signs Temp 36.8 C 09/13/19 07:40 Pulse 93 09/13/19 07:40 Resp 22 H 09/13/19 07:40 BP 139/75 09/13/19 07:40 Pulse Ox 94 L 09/13/19 07:40 - Re-Assessments/Exams Free Text/Narrative Re-Assessment/Exam: 09/13/19 08:17 During the HPI discussion with the patient she became very upset agitated rude and yelling at this provider when I asked what was different today that brought her to the emergency department after 7 years of the same pain. She became very agitated would not allow me to ask any further questions by everytime I would start to ask question she would start lecturing me about how I don't care about her pain or any patient. She started to demean me and lecture me about me not caring about her chronic pain. Anytime that I attempted to ask any further questions she would cut me off not allow to ask any questions and lecture me about how I don't care about her pain. She would not allow any physical exam and started to yell at this provider. I told her that I had done nothing to offend her other than try to find out her history of her complaint and she is refusing to allow the visit to continue. I told her that clearly she is quite upset and uncomfortable and I will step out to allow her to calm and we can start the visit again when she is willing to discuss her concerns without being demeaning rude and what I felt was aggressive behavior towards myself. She chose to leave the emergency department at that time walking without any difficulty disability yelling screaming and hollering at the staff. The patient left prior to AMA discussion from this provider. She left prior to the nurse being able to get AMA information. 09/13/19 08:30 Departure - Departure Time of Disposition: 08:25 Disposition: Eloped 07 Clinical Impression: Chronic lower limb pain Qualifiers: Laterality: left Qualified Code(s): M79.605 - Pain in left leg; G89.29 - Other chronic pain - Discharge Information Referrals: Eden Kitchen DO [Primary Care Provider] - Additional Instructions: The patient eloped prior any discharge planning. Sepsis Event Note - Evaluation Sepsis Screening Result: No Definite Risk - Focused Exam Vital Signs: Vital Signs Temp Pulse Resp BP Pulse Ox 09/13/19 07:40 36.8 C 93 22 H 139/75 94 L Date Exam was Performed: 09/13/19 Time Exam was Performed: 08:13 - Assessment/Plan Assessment:: Difficult to determine as the patient eloped during the care but appears to be Chronic left buttocks leg pain most consistent with sciatica. ALthough unable to complete the HPI a physical exam or planning as the patient became agitated and eloped during the visit.
== END 2019-09-13 08:15 | disposition left against medical advice (07) ==
LOC: VM.ED 07:04
DX: M79.605 Pain in left leg (principal); G89.29 Other chronic pain; I11.0 Hypertensive heart disease with heart failure; I50.9 Heart failure, unspecified; E78.00 Pure hypercholesterolemia, unspecified; E03.9 Hypothyroidism, unspecified; K21.9 Gastro-esophageal reflux disease without esophagitis; J44.9 Chronic obstructive pulmonary disease, unspecified; F32.9 Major depressive disorder, single episode, unspecified; F41.9 Anxiety disorder, unspecified; Z86.711 Personal history of pulmonary embolism; Z87.891 Personal history of nicotine dependence; Z79.899 Other long term (current) drug therapy
CPT/HCPCS: 99283; 99284-GF

== ENCOUNTER 2019-09-15 10:08 | Emergency (ER) | payer MEDICARE, MEDICAID ==
--- NOTE | 2019-09-15 11:04 | EDM.PDOC ---
ED HPI GENERAL MEDICAL PROBLEM - General Chief Complaint: Lower Extremity Injury/Pain Stated Complaint: pain in legs Time Seen by Provider: 09/15/19 10:12 Source of Information: Reports: Patient History Limitations: Reports: No Limitations - History of Present Illness INITIAL COMMENTS - FREE TEXT/NARRATIVE: Pt. presents to ER from clinic with complaints of chronic lower extremity pain, L>R. Pt. has a history of chronic extremity pain and and radiculopathy thought to be secondary to L sided SI joint. She also has a history of L hip fx. with L sided IM nailing in 2012. She feels as though there is some problem with the L hip. She states that she has fallen in the past, but states that she has not had any imaging performed of the joint since that time. Pt. is currently being treated for COPD exacerbation. She has been on cefuroxime for 1 week. She was not started on a steroid. Clinic was concerned because her O2 sat was 86% at the clinic. It was 94% on arrival to ER. She is consistently in the low 90s as noted in her clinic visit notes. She has a history of YVONNE, COPD. She denies any significant shortness of breath. No fever or chills. She states that she has been experiencing the extremity pain and radiculopathy for 7 years, and has seen PT and pain management, but not for some time. Onset: Today Onset Date: 09/15/19 Location: Reports: Back, Lower Extremity, Left, Lower Extremity, Right Quality: Reports: Ache Bilateral Upper Leg Pain Score (Numeric/FACES): 5 - Related Data Allergies Allergy/AdvReac Type Severity Reaction Status Date / Time pravastatin Allergy Other Verified 09/15/19 10:33 Home Meds: Home Meds Budesonide/Formoterol [Symbicort 160-4.5 MCG] 2 puff INH BID 03/09/14 [History] Calcium Citrate/Vitamin D3 [Calcitrate + Vit D Cap (315 MG/250 UNITS)] 1 each PO BIDMEALS 03/09/14 [History] Cholecalciferol (Vitamin D3) [Vitamin D3] 2,000 unit PO DAILY 03/09/14 [History] Cyanocobalamin (Vitamin B-12) [B-12] 250 mcg PO DAILY 03/09/14 [History] Esomeprazole [NexIUM] 20 mg PO DAILY 03/09/14 [History] Magnesium Oxide 800 mg PO DAILY 03/09/14 [History] Melatonin 5 mg PO BEDTIME 03/09/14 [History] Multivitamin with Minerals [Multiple Vitamin] 1 tab PO DAILY 03/09/14 [History] Sertraline [Zoloft] 200 mg PO BEDTIME 03/09/14 [History] buPROPion [Wellbutrin XL] 300 mg PO DAILY 03/09/14 [History] Acetaminophen 1,000 mg PO TID PRN 11/15/15 [History] Albuterol [Ventolin HFA] 1 inh PO Q4H PRN 11/15/15 [History] Levothyroxine 150 mcg PO DAILY 11/15/15 [History] Umeclidinium [place] [Incruse Ellipta] 1 inh PO DAILY 11/15/15 [History] busPIRone [Buspar] 45 mg PO BEDTIME 11/15/15 [History] Docusate Sodium/Sennosides [Senna Plus] 1 tab PO BID PRN 12/17/15 [History] DULoxetine [Cymbalta] 20 mg PO DAILY 01/06/16 [History] Albuterol Sulfate [Albuterol Sulfate Hfa] 1 puff Q4H PRN 04/18/19 [History] Gabapentin [Neurontin] 100 mg PO BID 04/18/19 [History] Magnesium 500 mg PO BID 04/18/19 [History] Potassium Chloride 2 tab PO BID 04/18/19 [History] Pramipexole Di-HCl [Mirapex] 0.25 mg PO BEDTIME 04/18/19 [History] Umeclidinium Brm/Vilanterol Tr [Anoro Ellipta 62.5-25 MCG] 1 puff DAILY [History] guaiFENesin 5 ml PO Q6H PRN 04/18/19 [History] tiZANidine HCl [Zanaflex] 2 mg PO TID PRN 04/18/19 [History] Past Medical History HEENT History: Reports: Cataract, Other (See Below) Other HEENT History: presbyopia. myopia Cardiovascular History: Reports: Heart Failure, High Cholesterol, Hypertension, SOB on Exertion Respiratory History: Reports: COPD, PE, Sleep Apnea, Other (See Below) Other Respiratory History: oxygen dependent Gastrointestinal History: Reports: Gastritis, GERD, Hepatitis, Hiatal Hernia Genitourinary History: Reports: Other (See Below) Other Genitourinary History: stress incontinence NEUROSURGEON History: Reports: Other (See Below) Other NEUROSURGEON History: metrorrhagia. ASCUS Favor Benign Musculoskeletal History: Reports: Back Pain, Chronic, Fibromyalgia, Other (See Below) Other Musculoskeletal History: leg pain Neurological History: Reports: Other (See Below) Other Neuro History: fibramyalgia Psychiatric History: Reports: Addiction, Anxiety, Depression, Schizophrenia, Suicidal Ideation, Other (See Below) Other Psychiatric History: hx of alcoholism Endocrine/Metabolic History: Reports: Hypothyroidism - Past Surgical History HEENT Surgical History: Reports: Other (See Below) GI Surgical History: Reports: Cholecystectomy Female Surgical History: Reports: Tubal Ligation Musculoskeletal Surgical History: Reports: Hip Replacement Social & Family History - Family History HEENT: Reports: Cataract Other HEENT Family History: mother-cataracts GI: Reports: Other (See Below) Other GI Family History: sister- ciliac Musculoskeletal: Reports: Arthritis Other Musculoskeletal Family History: arthritis- mother Neurological: Reports: Migraines Other Neurological Family History: migraines- sister Endocrine/Metabolic: Reports: Hypothyroidism Other Endocrine/Metabolic Family History: sister and mother - Caffeine Use Caffeine Use: Reports: Soda ED ROS GENERAL - Review of Systems Review Of Systems: See Below Constitutional: Reports: No Symptoms HEENT: Reports: No Symptoms Respiratory: Reports: Other (See HPI) Cardiovascular: Reports: No Symptoms Endocrine: Reports: No Symptoms GI/Abdominal: Reports: No Symptoms : Reports: No Symptoms Musculoskeletal: Reports: Back Pain, Leg Pain Skin: Reports: No Symptoms Neurological: Reports: Other (L sided radiculopathy) Psychiatric: Reports: No Symptoms Hematologic/Lymphatic: Reports: No Symptoms Immunologic: Reports: No Symptoms ED EXAM, GENERAL - Physical Exam Exam: See Below Exam Limited By: No Limitations General Appearance: Alert, WD/WN, No Apparent Distress Neck: Normal Inspection, Supple, Non-Tender, Full Range of Motion Respiratory/Chest: No Respiratory Distress, Lungs Clear, Normal Breath Sounds, No Accessory Muscle Use, Chest Non-Tender Cardiovascular: Normal Peripheral Pulses, Regular Rate, Rhythm, No Edema, No Gallop, No JVD, No Murmur Back Exam: Normal Inspection, Decreased Range of Motion, Muscle Spasm Extremities: Normal Inspection, Normal Range of Motion, Leg Pain (unable to reproduce. Pain runs down posterior aspect of L leg.) Neurological: Alert, Oriented, CN II-XII Intact, Normal Cognition, No Motor/ Sensory Deficits Psychiatric: Anxious Course - Vital Signs Last Recorded V/S: Last Vital Signs Temp 36.8 C 09/15/19 10:12 Pulse 97 09/15/19 10:12 Resp 20 09/15/19 10:12 BP 172/79 H 09/15/19 10:12 Pulse Ox 94 L 09/15/19 10:12 Departure - Departure Time of Disposition: 11:19 Disposition: Home, Self-Care 01 Clinical Impression: Radiculopathy, COPD exacerbation - Discharge Information Instructions: Chronic Obstructive Pulmonary Disease Exacerbation, Sciatica Referrals: Eden Kitchen DO [Primary Care Provider] - Forms: ED Department Discharge Additional Instructions: Home to rest. Prednisone 40mg once daily [place] 5/325mg 1 every 6 hours Bring your referral to the physical therapist of your choice. Sepsis Event Note - Evaluation Sepsis Screening Result: No Definite Risk - Focused Exam Vital Signs: Vital Signs Temp Pulse Resp BP Pulse Ox 09/15/19 10:12 36.8 C 97 20 172/79 H 94 L Date Exam was Performed: 09/15/19 Time Exam was Performed: 11:18 - Assessment/Plan Plan: Home to rest. Prednisone 40mg once daily [place] 5/325mg 1 every 6 hours Bring your referral to the physical therapist of your choice.
--- NOTE | 2019-09-15 11:10 | CR ---
[id number] RAD/RAD Femur Left 2V EXAM: RAD Femur Left 2V INDICATION: Fall with left lower extremity pain. COMPARISON: None. DISCUSSION: Healed proximal femur fracture status post intramedullary fixation. No evident hardware complication. Mild to moderate osteoarthritis of the hip. No acute fracture or dislocation is identified. IMPRESSION: 1. No acute findings. Lonnie Burgos MD 09/15/19 [id number] Thank you for allowing us to participate in the care of your patient.
--- NOTE | 2019-09-15 11:11 | CR ---
[id number] RAD/RAD Pelvis 1-2V EXAM: AP PELVIS CLINICAL DATA: PELVIC PAIN. COMPARISON: None. FINDINGS: Intramedullary zaira fixation of the left femur. Mild to moderate osteoarthritis of both hips. No acute fracture or dislocation is identified. IMPRESSION: 1. Mild to moderate osteoarthritis of the hips. No acute findings. Lonnie Burgos MD 09/15/19 [id number] Thank you for allowing us to participate in the care of your patient.
[2019-09-15 11:50] VITALS: BP 164/88; PULSE 91
== END 2019-09-15 11:24 | disposition home or self-care (01) ==
LOC: VM.ED 10:08
DX: M54.10 Radiculopathy, site unspecified (principal); J44.1 Chronic obstructive pulmonary disease with (acute) exacerbation; I11.0 Hypertensive heart disease with heart failure; I50.9 Heart failure, unspecified; E78.00 Pure hypercholesterolemia, unspecified; E03.9 Hypothyroidism, unspecified; K21.9 Gastro-esophageal reflux disease without esophagitis; Z86.711 Personal history of pulmonary embolism; Z88.8 Allergy status to other drugs, medicaments and biological substances
CPT/HCPCS: 72170; 99283-25; 99284-GF

== ENCOUNTER 2020-04-19 11:34 | Inpatient (IN) | payer MEDICARE, MEDICAID ==
[2020-04-19] MEDS ORDERED: Dexamethasone 4 MG/ML 5 ML MDV IV ONE (11:58)
[2020-04-19] MEDS ORDERED: Lactated Ringers 1,000 ML IV ONE (11:58)
--- NOTE | 2020-04-19 12:05 | EDM.PDOC ---
ED HPI GENERAL MEDICAL PROBLEM - General Chief Complaint: Respiratory Problem Stated Complaint: COPD O2-70% Time Seen by Provider: 04/19/20 11:39 Source of Information: Reports: Patient - History of Present Illness INITIAL COMMENTS - FREE TEXT/NARRATIVE: Mandy is a 60 y/o female who presents to the ER with SOB and hypoxia. She has been ill for about 2 weeks with increased coughing and SOB. She was seen at the clinic 1 week ago and put on prednisone. This has not really helped much and this AM she felt worse. She was at the clinic seeing Alanis Holly PA-C and her stats were noted to be 70% on room air, so she was sent here to the ER. On arrival here her sats were in the 85-86% range on room air and she was markedly SOb. Patient able to report that she has had increased mucous production and SOB over the last week. She denies any history of COVID exposure. - Related Data Allergies Allergy/AdvReac Type Severity Reaction Status Date / Time pravastatin Allergy Other Verified 04/19/20 12:25 Home Meds: Home Meds Budesonide/Formoterol [Symbicort 160-4.5 MCG] 2 puff INH BID 03/09/14 [History] Calcium Citrate/Vitamin D3 [Calcitrate + Vit D Cap (315 MG/250 UNITS)] 1 each PO BIDMEALS 03/09/14 [History] Cholecalciferol (Vitamin D3) [Vitamin D3] 2,000 unit PO DAILY 03/09/14 [History] Cyanocobalamin (Vitamin B-12) [B-12] 250 mcg PO DAILY 03/09/14 [History] Esomeprazole [NexIUM] 20 mg PO DAILY 03/09/14 [History] Magnesium Oxide 800 mg PO DAILY 03/09/14 [History] Melatonin 5 mg PO BEDTIME 03/09/14 [History] Multivitamin with Minerals [Multiple Vitamin] 1 tab PO DAILY 03/09/14 [History] Sertraline [Zoloft] 200 mg PO BEDTIME 03/09/14 [History] buPROPion [Wellbutrin XL] 300 mg PO DAILY 03/09/14 [History] Acetaminophen 1,000 mg PO TID PRN 11/15/15 [History] Albuterol [Ventolin HFA] 1 inh PO Q4H PRN 11/15/15 [History] Levothyroxine 150 mcg PO DAILY 11/15/15 [History] Umeclidinium [place] [Incruse Ellipta] 1 inh PO DAILY 11/15/15 [History] busPIRone [Buspar] 45 mg PO BEDTIME 11/15/15 [History] Docusate Sodium/Sennosides [Senna Plus] 1 tab PO BID PRN 12/17/15 [History] DULoxetine [Cymbalta] 20 mg PO DAILY 01/06/16 [History] Albuterol Sulfate [Albuterol Sulfate Hfa] 1 puff Q4H PRN 04/18/19 [History] Gabapentin [Neurontin] 100 mg PO BID 04/18/19 [History] Magnesium 500 mg PO BID 04/18/19 [History] Potassium Chloride 2 tab PO BID 04/18/19 [History] Pramipexole Di-HCl [Mirapex] 0.25 mg PO BEDTIME 04/18/19 [History] Umeclidinium Brm/Vilanterol Tr [Anoro Ellipta 62.5-25 MCG] 1 puff DAILY 04/18/19 [History] guaiFENesin 5 ml PO Q6H PRN 04/18/19 [History] tiZANidine HCl [Zanaflex] 2 mg PO TID PRN 04/18/19 [History] Past Medical History HEENT History: Reports: Cataract, Other (See Below) Other HEENT History: presbyopia. myopia Cardiovascular History: Reports: Heart Failure, High Cholesterol, Hypertension, SOB on Exertion Respiratory History: Reports: COPD, PE, Sleep Apnea, Other (See Below) Other Respiratory History: oxygen dependent Gastrointestinal History: Reports: Gastritis, GERD, Hepatitis, Hiatal Hernia Genitourinary History: Reports: Other (See Below) Other Genitourinary History: stress incontinence DOCUMENT SPECIALIST History: Reports: Other (See Below) Other DOCUMENT SPECIALIST History: metrorrhagia. ASCUS Favor Benign Musculoskeletal History: Reports: Back Pain, Chronic, Fibromyalgia, Other (See Below) Other Musculoskeletal History: leg pain Neurological History: Reports: Other (See Below) Other Neuro History: fibramyalgia Psychiatric History: Reports: Addiction, Anxiety, Depression, Schizophrenia, Suicidal Ideation, Other (See Below) Other Psychiatric History: hx of alcoholism Endocrine/Metabolic History: Reports: Hypothyroidism - Past Surgical History HEENT Surgical History: Reports: Other (See Below) GI Surgical History: Reports: Cholecystectomy Female Surgical History: Reports: Tubal Ligation Musculoskeletal Surgical History: Reports: Hip Replacement Social & Family History - Family History HEENT: Reports: Cataract Other HEENT Family History: mother-cataracts GI: Reports: Other (See Below) Other GI Family History: sister- ciliac Musculoskeletal: Reports: Arthritis Other Musculoskeletal Family History: arthritis- mother Neurological: Reports: Migraines Other Neurological Family History: migraines- sister Endocrine/Metabolic: Reports: Hypothyroidism Other Endocrine/Metabolic Family History: sister and mother - Caffeine Use Caffeine Use: Reports: Soda Review of Systems - Review of Systems Review Of Systems: See Below Constitutional: Reports: Diaphoresis Eyes: Reports: No Symptoms Ears: Reports: No Symptoms Nose: Reports: No Symptoms Mouth/Throat: Reports: No Symptoms Respiratory: Reports: Shortness of Breath, Cough, Sputum (increased amount and viscosity, no color change) Cardiovascular: Reports: No Symptoms GI/Abdominal: Reports: No Symptoms Genitourinary: Reports: No Symptoms Musculoskeletal: Reports: No Symptoms Skin: Reports: No Symptoms Neurological: Reports: No Symptoms Psychiatric: Reports: No Symptoms ED EXAM, GENERAL - Physical Exam Exam: See Below General Appearance: Alert, WD/WN, No Apparent Distress Ears: Normal External Exam, Normal Canal, Hearing Grossly Normal, Normal TMs Nose: Normal Inspection, Normal Mucosa Throat/Mouth: Other (Lips dry and flaky, tongue has white appearance, but slightly dry) Head: Atraumatic, Normocephalic Neck: Normal Inspection, Supple Respiratory/Chest: Decreased Breath Sounds, Other (SOB with exercise or talking) Cardiovascular: Normal Peripheral Pulses, Regular Rate, Rhythm, No Edema GI/Abdominal: Normal Bowel Sounds, Soft, No Mass (Female) Exam: Deferred Rectal (Female) Exam: Deferred Back Exam: Normal Inspection Extremities: Non-Tender, No Pedal Edema, Normal Capillary Refill Neurological: Alert, Oriented, CN II-XII Intact, No Motor/Sensory Deficits Psychiatric: Anxious Skin Exam: Warm, Dry, Normal Color Lymphatic: No Adenopathy #1 Interpretation EKG Date: 04/19/20 Time: 12:01 Rhythm: NSR Rate (Beats/Min): 87 [place]: Normal P-Wave: Present QRS: Normal ST-T: Normal QT: Normal Comparison: NA - No Prior EKG EKG Interpretation Comments: Compared to 07/10/2019 Study Course - Vital Signs Text/Narrative:: 1139 Patient was seen by the [employer]. Labs, CXR, and EKG ordered. She was given a Duoneb, IV fluids, and Dexamethsone 8 mg IVP. She was placed on 2 liters of oxygen per nasal cannula on arrival and her sats increased to 95-96%. 1205 [employer] decreased her oxygen to 1 liter while assessing and noted that she would remain at 90% on liter, but with any exertion she dropped into the mid 80s. Oxygen 1300 Note +influenza B. Labs reviewed. Awaiting CXR report. 1315 Dr Eden Kitchen contacted and case discussed. IV fluids that were previously ordered were stopped after about 750ml infused. Patient tells [employer] that she did not take her Lasix this AM because she had company. Lasix 40mg IVP ordered. Plan Acute admission per Dr Kitchen. Last Recorded V/S: Last Vital Signs Temp 36.7 C 04/19/20 11:53 Pulse 89 04/19/20 13:10 Resp 20 04/19/20 13:10 BP 170/85 H 04/19/20 13:10 Pulse Ox 92 L 04/19/20 13:10 - Orders/Labs/Meds Orders: Active Orders 24 hr Category Date Time Status Patient Status [ADT] Routine ADT 04/19/20 13:16 Ordered EKG Documentation Completion [RC] STAT Care 04/19/20 11:56 Active CULTURE BLOOD [BC] Stat Lab 04/19/20 12:40 Received CULTURE BLOOD [BC] Stat Lab 04/19/20 12:44 Received CULTURE URINE [RM] Stat Lab 04/19/20 13:03 Received Sodium Chloride 0.9% [Saline Flush] Med 04/19/20 11:56 Active 10 ml FLUSH ASDIRECTED PRN Blood Culture x2 Reflex Set [OM.PC] Stat Oth 04/19/20 11:56 Ordered Saline Lock Insert [OM.PC] Stat Oth 04/19/20 11:56 Ordered Medication Orders Sodium Chloride (Saline Flush) 10 ml FLUSH ASDIRECTED PRN PRN Reason: Keep Vein Open Last Admin: 04/19/20 12:24 Dose: 10 ml Documented by: CORBIN Labs: Laboratory Tests 0104/19/20 04/19/20 Range/Units 11:48 11:48 11:48 WBC 9.4 (4.0-10.0) x10^3/uL RBC 4.80 (4.00-5.50) x10^6/uL Hgb 13.2 (12.0-16.0) g/dL Hct 43.5 (33.0-47.0) % MCV 90.6 D (78.0-93.0) fL MCH 27.5 (26.0-32.0) pg MCHC 30.3 L (32.0-36.0) g/dL RDW Coeff of [place] 18.0 H (10.0-15.0) % Plt Count 258 (130-400) x10^3/uL Neut % (Auto) 78.2 (50.0-80.0) % Lymph % (Auto) 13.1 L (25.0-50.0) % [place] % (Auto) 7.1 (2.0-11.0) % Eos % (Auto) 1.2 (0.0-4.0) % Baso % (Auto) 0.4 (0.2-1.2) % PT 11.7 (9.5-12.3) SEC INR 1.1 L (2.0-3.5) APTT 23.9 L (25.6-32.8) SEC ABG pH (7.35-7.45) pH ABG pCO2 (35-48) mmHG ABG pO2 (83-108) mmHG ABG HCO3 (21-28) mmol/L ABG Total CO2 (22-29) mmol/L ABG O2 Saturation % ABG Base Excess ((-2)-(+3)) mmol/L FiO2 Sodium 138 (136-145) mmol/L Potassium 4.6 (3.5-5.1) mmol/L Chloride 98 (98-107) mmol/L Carbon Dioxide 34 H (21-32) mmol/L Anion Gap 10.6 (10-20) mmol/L BUN 20 H (7-18) mg/dL Creatinine 1.4 H (0.55-1.02) mg/dL Est Cr Clr Drug Dosing 41.55 mL/min Estimated GFR (MDRD) 38 Glucose 137 H (74-106) mg/dL Lactic Acid (0.4-2.0) mmol/L Calcium 9.9 (8.5-10.1) mg/dL Corrected Calcium 10.30 H (8.5-10.1) mg/dL Magnesium 2.0 (1.8-2.4) mg/dL Total Bilirubin 0.5 (0.2-1.0) mg/dL AST 42 H (15-37) U/L ALT 189 H (14-59) U/L Alkaline Phosphatase 147 H (46-116) U/L Troponin I < 0.017 (<=0.056) ng/mL C-Reactive Protein 8.0 H (<=0.9) mg/dL NT-Pro-B Natriuret Pep 9301 H (<=125) pg/mL Total Protein 7.8 (6.4-8.2) g/dL Albumin 3.5 (3.4-5.0) g/dL Globulin 4.3 Albumin/Globulin Ratio 0.81 Urine Color (YELLOW) Urine Appearance (CLEAR) Urine pH (5.0-8.0) Ur Specific [place] Urine Protein (NEGATIVE) mg/dL Urine Glucose (UA) (NEGATIVE) mg/dL Urine Ketones (NEGATIVE) mg/dL Urine Occult Blood (NEGATIVE) Urine Nitrite (NEGATIVE) Urine Bilirubin (NEGATIVE) Urine Urobilinogen (0.2) EU/dL Ur Leukocyte Esterase (NEGATIVE) Urine RBC (NOT SEEN) /HPF Urine WBC (NOT SEEN) /HPF Ur Squamous Epith Cells (NEGATIVE) /HPF Urine Bacteria (NEGATIVE) /HPF Urine Mucus (NEGATIVE) /LPF SARS CoV-2 RNA Rapid MAIN (NEGATIVE) 04/19/20 04/19/20 04/19/20 Range/Units 11:48 12:14 12:48 WBC (4.0-10.0) x10^3/uL RBC (4.00-5.50) x10^6/uL Hgb (12.0-16.0) g/dL Hct (33.0-47.0) % MCV (78.0-93.0) fL MCH (26.0-32.0) pg MCHC (32.0-36.0) g/dL RDW Coeff of [place] (10.0-15.0) % Plt Count (130-400) x10^3/uL Neut % (Auto) (50.0-80.0) % Lymph % (Auto) (25.0-50.0) % [place] % (Auto) (2.0-11.0) % Eos % (Auto) (0.0-4.0) % Baso % (Auto) (0.2-1.2) % PT (9.5-12.3) SEC INR (2.0-3.5) APTT (25.6-32.8) SEC ABG pH 7.37 (7.35-7.45) pH ABG pCO2 57 H (35-48) mmHG ABG pO2 74 L (83-108) mmHG ABG HCO3 33 H (21-28) mmol/L ABG Total CO2 33 H (22-29) mmol/L ABG O2 Saturation 93.7 % ABG Base Excess 8 H ((-2)-(+3)) mmol/L FiO2 0.28 Sodium (136-145) mmol/L Potassium (3.5-5.1) mmol/L Chloride (98-107) mmol/L Carbon Dioxide (21-32) mmol/L Anion Gap (10-20) mmol/L BUN (7-18) mg/dL Creatinine (0.55-1.02) mg/dL Est Cr Clr Drug Dosing mL/min Estimated GFR (MDRD) Glucose (74-106) mg/dL Lactic Acid 1.4 (0.4-2.0) mmol/L Calcium (8.5-10.1) mg/dL Corrected Calcium (8.5-10.1) mg/dL Magnesium (1.8-2.4) mg/dL Total Bilirubin (0.2-1.0) mg/dL AST (15-37) U/L ALT (14-59) U/L Alkaline Phosphatase (46-116) U/L Troponin I (<=0.056) ng/mL C-Reactive Protein (<=0.9) mg/dL NT-Pro-B Natriuret Pep (<=125) pg/mL Total Protein (6.4-8.2) g/dL Albumin (3.4-5.0) g/dL Globulin Albumin/Globulin Ratio Urine Color (YELLOW) Urine Appearance (CLEAR) Urine pH (5.0-8.0) Ur Specific [place] Urine Protein (NEGATIVE) mg/dL Urine Glucose (UA) (NEGATIVE) mg/dL Urine Ketones (NEGATIVE) mg/dL Urine Occult Blood (NEGATIVE) Urine Nitrite (NEGATIVE) Urine Bilirubin (NEGATIVE) Urine Urobilinogen (0.2) EU/dL Ur Leukocyte Esterase (NEGATIVE) Urine RBC (NOT SEEN) /HPF Urine WBC (NOT SEEN) /HPF Ur Squamous Epith Cells (NEGATIVE) /HPF Urine Bacteria (NEGATIVE) /HPF Urine Mucus (NEGATIVE) /LPF SARS CoV-2 RNA Rapid MAIN Negative (NEGATIVE) 04/19/20 Range/Units 13:03 WBC (4.0-10.0) x10^3/uL RBC (4.00-5.50) x10^6/uL Hgb (12.0-16.0) g/dL Hct (33.0-47.0) % MCV (78.0-93.0) fL MCH (26.0-32.0) pg MCHC (32.0-36.0) g/dL RDW Coeff of [place] (10.0-15.0) % Plt Count (130-400) x10^3/uL Neut % (Auto) (50.0-80.0) % Lymph % (Auto) (25.0-50.0) % [place] % (Auto) (2.0-11.0) % Eos % (Auto) (0.0-4.0) % Baso % (Auto) (0.2-1.2) % PT (9.5-12.3) SEC INR (2.0-3.5) APTT (25.6-32.8) SEC ABG pH (7.35-7.45) pH ABG pCO2 (35-48) mmHG ABG pO2 (83-108) mmHG ABG HCO3 (21-28) mmol/L ABG Total CO2 (22-29) mmol/L ABG O2 Saturation % ABG Base Excess ((-2)-(+3)) mmol/L FiO2 Sodium (136-145) mmol/L Potassium (3.5-5.1) mmol/L Chloride (98-107) mmol/L Carbon Dioxide (21-32) mmol/L Anion Gap (10-20) mmol/L BUN (7-18) mg/dL Creatinine (0.55-1.02) mg/dL Est Cr Clr Drug Dosing mL/min Estimated GFR (MDRD) Glucose (74-106) mg/dL Lactic Acid (0.4-2.0) mmol/L Calcium (8.5-10.1) mg/dL Corrected Calcium (8.5-10.1) mg/dL Magnesium (1.8-2.4) mg/dL Total Bilirubin (0.2-1.0) mg/dL AST (15-37) U/L ALT (14-59) U/L Alkaline Phosphatase (46-116) U/L Troponin I (<=0.056) ng/mL C-Reactive Protein (<=0.9) mg/dL NT-Pro-B Natriuret Pep (<=125) pg/mL Total Protein (6.4-8.2) g/dL Albumin (3.4-5.0) g/dL Globulin Albumin/Globulin Ratio Urine Color Yellow (YELLOW) Urine Appearance Slightly cloudy H (CLEAR) Urine pH 6.5 (5.0-8.0) Ur Specific [place] 1.015 Urine Protein Negative (NEGATIVE) mg/dL Urine Glucose (UA) Negative (NEGATIVE) mg/dL Urine Ketones Negative (NEGATIVE) mg/dL Urine Occult Blood Negative (NEGATIVE) Urine Nitrite Negative (NEGATIVE) Urine Bilirubin Negative (NEGATIVE) Urine Urobilinogen 0.2 (0.2) EU/dL Ur Leukocyte Esterase Trace H (NEGATIVE) Urine RBC 0-5 (NOT SEEN) /HPF Urine WBC 5-10 H (NOT SEEN) /HPF Ur Squamous Epith Cells Few H (NEGATIVE) /HPF Urine Bacteria Rare (NEGATIVE) /HPF Urine Mucus Rare H (NEGATIVE) /LPF SARS CoV-2 RNA Rapid MAIN (NEGATIVE) Meds: Medications Generic Name Dose Route Start Last Admin Trade Name Freq PRN Reason Stop Dose Admin Sodium Chloride 10 ml 04/19/20 11:56 04/19/20 12:24 Saline Flush FLUSH 10 ml ASDIRECTED PRN Administration Keep Vein Open Discontinued Medications Generic Name Dose Route Start Last Admin Trade Name Freq PRN Reason Stop Dose Admin Dexamethasone 8 mg 04/19/20 11:58 04/19/20 12:19 Dexamethasone IV 04/19/20 11:59 Not Given ONETIME ONE Dexamethasone Confirm 04/19/20 12:12 04/19/20 12:19 Decadron Administered 04/19/20 12:13 8 mg Dose Administration 8 mg .ROUTE .STK-MED ONE Furosemide 40 mg 04/19/20 13:16 04/19/20 13:22 Lasix IV 04/19/20 13:17 40 mg ONETIME ONE Administration Lactated Ringer's 1,000 mls @ 999 mls/hr 04/19/20 11:58 04/19/20 12:17 Ringers, Lactated IV 04/19/20 12:58 999 mls/hr ONETIME ONE Administration - Radiology Interpretation Free Text/Narrative:: XR Chest 1V-note congestion in bilateral lower lobes, appears more fluid than infiltrate, heart enlarged (See final xray report) Departure - Departure Time of Disposition: 13:15 Disposition: Admitted As Inpatient 66 Clinical Impression: Influenza B Respiratory failure with hypoxia Qualifiers: Chronicity: unspecified Qualified Code(s): J96.91 - Respiratory failure, unspecified with hypoxia COPD (chronic obstructive pulmonary disease) Qualifiers: COPD type: unspecified COPD Qualified Code(s): J44.9 - Chronic obstructive pulmonary disease, unspecified - Discharge Information Forms: ED Department Discharge Sepsis Event Note (ED) - Evaluation Sepsis Screening Result: No Definite Risk - Focused Exam Vital Signs: Vital Signs Temp Pulse Resp BP Pulse Ox 04/19/20 13:10 89 20 170/85 H 92 L 04/19/20 11:53 36.7 C 90 18 168/96 H 92 L - My Orders Last 24 Hours: My Active Orders 04/19/20 11:56 EKG Documentation Completion [RC] STAT Sodium Chloride 0.9% [Saline Flush] 10 ml FLUSH ASDIRECTED PRN Blood Culture x2 Reflex Set [OM.PC] Stat Saline Lock Insert [OM.PC] Stat 04/19/20 12:40 CULTURE BLOOD [BC] Stat 04/19/20 12:44 CULTURE BLOOD [BC] Stat 04/19/20 13:03 CULTURE URINE [RM] Stat 04/19/20 13:16 Patient Status [ADT] Routine - Assessment/Plan Admission H&P: Please use this note as an admission H&P Last 24 Hours: My Active Orders 04/19/20 11:56 EKG Documentation Completion [RC] STAT Sodium Chloride 0.9% [Saline Flush] 10 ml FLUSH ASDIRECTED PRN Blood Culture x2 Reflex Set [OM.PC] Stat Saline Lock Insert [OM.PC] Stat 04/19/20 12:40 CULTURE BLOOD [BC] Stat 04/19/20 12:44 CULTURE BLOOD [BC] Stat 04/19/20 13:03 CULTURE URINE [RM] Stat 04/19/20 13:16 Patient Status [ADT] Routine Assessment:: 1)Respiratory Failure secondary to Influenza B+ 2)COPD Plan: -See orders per Dr Eden Kitchen
[2020-04-19] MEDS ORDERED: Dexamethasone 4 MG/ML SDV ONE (12:12)
[2020-04-19 12:13] LABS: PTT,PARTIAL THROMBOPLSTIN TIME 23.9 SEC (25.6-32.8)
[2020-04-19] MEDS: Sodium Chloride 0.9% 10 ML Syringe FLUSH PRN ×2 (12:24→22:42)
[2020-04-19 12:27] LABS: CHLORIDE,CL 98 mmol/L (98-107); SODIUM,NA 138 mmol/L (136-145)
[2020-04-19 12:29] LABS: ANION GAP 10.6 mmol/L (10-20)
[2020-04-19 12:58] LABS: PCO2 ARTERIAL 57 mmHG (35-48); PO2 ARTERIAL 74 mmHG (83-108)
[2020-04-19 12:59] LABS: BASE EXCESS ARTERIAL 8 mmol/L ((-2)-(+3)); BICARBONATE,ARTERIAL 33 mmol/L (21-28); O2 SATURATION ARTERIAL 93.7 %
--- NOTE | 2020-04-19 13:11 | CR ---
[id number] RAD/RAD Chest PA or AP 1V EXAM: FRONTAL CHEST INDICATION: SHORTNESS OF BREATH. COMPARISON: July 10, 2019. DISCUSSION: Hyperinflation is compatible with underlying COPD. There is chronic bilateral parenchymal scarring. No acute infiltrates are identified, but the chronic findings could obscure pathology. Chronic bilateral rib fractures. There are stable cardiomegaly with borderline central vascular congestion and possible trace bilateral pleural effusions. IMPRESSION: 1. Cardiomegaly with mild central vascular congestion and trace bilateral effusions. Lonnie Burgos MD 04/19/20 1481 Thank you for allowing us to participate in the care of your patient.
[2020-04-19] MEDS ORDERED: Furosemide 40 MG/4 ML VIAL IV ONE (13:16)
[2020-04-19] MEDS ORDERED: Fluconazole 100 MG Tab PO ONE (13:44)
[2020-04-19] MEDS ORDERED: Oseltamivir 75 MG Cap PO SCH (13:45)
[2020-04-19] MEDS: Doxycycline 100 MG Cap PO SCH ×2 (14:25→20:02)
[2020-04-19] MEDS: Albuterol/Ipratropium 3.0-0.5 MG/3 ML Neb Soln NEB SCH ×3 (14:25→22:41)
[2020-04-19] MEDS ORDERED: Iopamidol 612 MG/ML 100 ML Bottle IVPUSH ONE (15:38)
--- NOTE | 2020-04-19 17:41 | CT ---
[id number] CT/CTA Chest EXAM: CT ANGIOGRAM CHEST INDICATION: HYPOXIA. COMPARISON: November 18, 2015. DISCUSSION: There is chronic subsegmental left pulmonary embolism which was seen on study from November 18, 2015. No new pulmonary emboli are identified. No evidence of right heart strain. Moderate to advanced apical predominant changes of centrilobular and paraseptal emphysema. Stable areas of scarring especially within the lingula. No pneumothorax or pleural effusion. No confluent airspace consolidation. No evidence of pulmonary edema. No new suspicious pulmonary nodules or masses. The heart is stable in size with moderate enlargement of the right atrium and ventricle. The imaged upper abdomen and osseous structures are unremarkable. IMPRESSION: 1. Chronic pulmonary embolism within a left segmental branch. No evidence of acute pulmonary embolism. Erwin Ceron DO 04/19/20 [id number] Thank you for allowing us to participate in the care of your patient.
[2020-04-19] MEDS: Enoxaparin 40 MG/0.4 ML Syringe SUBCUT SCH (20:02)
[2020-04-19] MEDS: Oseltamivir 30 MG Cap PO SCH (20:02)
[2020-04-19] MEDS ORDERED: guaiFENesin 100 MG/5 ML Soln 10 ML UD Cup PO PRN (21:30)
[2020-04-19] MEDS: busPIRone 15 MG Tab PO SCH (22:41)
--- NOTE | 2020-04-20 01:08 | HP ---
CHIEF COMPLAINT: Shortness of breath. HISTORY OF PRESENT ILLNESS: This is a 60-year-old female who was actually seen by myself in the clinic on the , presenting with weight gain and shortness of breath. Her Lasix was scheduled 40 mg daily. However, her symptoms worsened and she actually gained 4 more pounds, so is up 16 pounds in 3 months, but over the weekend became more achy. No fever or chills, but very fatigued. No new cough, but she does have underlying COPD. No chest pain. After presenting to the clinic with an O2 sat of 70%, she was brought to the emergency room where her blood pressure was quite high at 151. Despite that, they gave her fluids, thinking possibly more infectious. They gave her about 800 in, and then when they realized it was CHF, they gave her 40 mg dose of Lasix, and she put out 1200 of urine nearly immediately. Her sats were also about 86% in the ER, but 92% on 2 L. She also had a history of blood clots, therefore underwent a PE protocol, which did not show any acute blood clots, but an old clot to the left segmental branch and significant scarring and emphysema central lobular and paraseptal. No pneumothorax or pleural effusion. No pulmonary edema. This scan was done after some of the diuresis. The patient had actually had her flu shot this year. ALLERGIES: Pravastatin. MEDICATIONS: Mirapex 0.25 at bedtime, Abilify 10 mg at bedtime, Neurontin 100 at bedtime, Cymbalta 60 mg daily, Lasix 40 mg daily, potassium 20 mEq b.i.d., levothyroxine 137 daily, Incruse, nystatin swish and spit. She had more thrush. Symbicort daily, albuterol inhaler as needed for wheezing. She has not been wheezing. Remeron 7.5 to 15 mg at bedtime, Zanaflex as needed, Voltaren gel, Lovaza, Prilosec 20 mg daily, magnesium 500 b.i.d., Robitussin cough syrup, Zoloft 150 daily, BuSpar 45 mg at bedtime, melatonin 10 mg as needed at bedtime, vitamin B12, multivitamin, vitamin D, and Wellbutrin 300 in the morning. PAST MEDICAL HISTORY: Includes obesity with significant weight gain after quitting smoking, alcoholism in remission, anxiety. Follows with Dr. Urban. Chronic bronchitis with multiple previous exacerbations, chronic diastolic heart failure with previous admissions. EF 65% in 2016, cataracts, hyperlipidemia, fibromyalgia, female stress incontinence, gastritis, hepatitis, hemorrhoids, history of smoking, hot flashes, essential hypertension, hypertriglyceridemia, hypothyroidism, leg pain after a femur fracture, migraines, moderate recurrent major depression, nocturnal hypoxia, but has quit using oxygen for several years, obstructive sleep apnea, unable to tolerate CPAP, obesity, osteoporosis with previous fracture, polymyalgia rheumatica in the past, pneumonias, pulmonary embolisms in 2010, also had ascites and renal failure that all resolved, pulmonary nodule, schizoaffective disorder. PAST SURGICAL HISTORY: She has had a cholecystectomy, dental surgeries, tubal ligation, and exploratory lap for an ectopic . She had a left IM nailing. SOCIAL HISTORY: She is disabled and . She has 3 children. 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 She is not currently drinking or smoking. FAMILY HISTORY: Her mother is living. She has had breast cancer. Her father . He had bone cancer like multiple myeloma. She has 4 sisters. One of them has blood pressure issues. REVIEW OF SYSTEMS: Constitutional: There has been significant weight gain like nearly 20 pounds in just a few months. HEENT: There has been no trouble swallowing, but she has had significant hoarseness of voice. She has had some hoarseness in the past, but has not followed up in ENT, but this is worse. She also has thrush. Cardiac: No chest pain, no palpitations, but she has been short of breath. Respiratory: No new cough, but has chronic cough. No new wheezing. She did get dexamethasone in the emergency room. GI: No nausea, vomiting, or diarrhea. : No burning with urination. Musculoskeletal: She has had a lot of achiness. Some of it was present previously. Psychologic: The patient actually just got out of [facility] [place] for med changes. She was not suicidal. She was started on Remeron in the last couple of months. Dr. Urban manages her meds. DIAGNOSTIC DATA: On admission, chest CT report is already listed above. Chest x-ray shows cardiomegaly with mild central vascular congestion and trace pleural effusions. Her EKG shows normal sinus rhythm, rate 87. LABORATORY WORK: White count 9.4, hemoglobin 13.2, platelets 258. INR 1.1. pH 7.37, pCO2 of 57, O2 of 74. Sodium 138, potassium 4.6, chloride 98, bicarbonate 34, BUN 20, creatinine 1.4, glucose 137, lactic 1.4, calcium 9.9, magnesium 2, bilirubin 0.5, AST 42, ALT 189, alk phos 147. Troponin 0.017. CRP 8, proBNP 9301. Albumin 3.5. UA 5-10 wbc's, 0-5 rbc's. Negative COVID. ASSESSMENT: 1. Acute on chronic hypoxic respiratory failure secondary to congestive heart failure and chronic obstructive pulmonary disease exacerbation from influenza. 2. Acute on chronic diastolic heart failure exacerbation with known ejection fraction of 55% back in 03/2016. 3. Chronic obstructive pulmonary disease with exacerbation. The patient was given dexamethasone. We will start her on scheduled nebs. 4. Weight gain. Recent TSH was okay, presumably due to heart failure. We will continue with diuresis. 5. Essential hypertension, probably due to increased fluid. Should improve with diuresis. 6. Influenza B. We will treat with Tamiflu. This is likely exacerbating her chronic obstructive pulmonary disease as well. 7. Anxiety and depression with recent med changes. We will continue with the same. 8. Obstructive sleep apnea and nocturnal hypoxia. We will keep her on oxygen at night. 9. Deep venous thrombosis prophylaxis. We will place her on Lovenox. PLAN: The patient will be admitted for acute cares. Will hold off on further steroids since she has not been actively wheezing. We will continue 40 mg twice daily IV for diuresis. We will repeat lab work tomorrow. We will continue her on potassium supplements. We will monitor her with continuous pulse oximetry and follow lab work closely. She is a code level 1. MKA: 04/19/2020 22:26:59 MODL: 04/20/2020 01:01:03 /[id number]
[2020-04-20] MEDS: Albuterol/Ipratropium 3.0-0.5 MG/3 ML Neb Soln NEB SCH ×2 (02:26→06:37)
[2020-04-20] MEDS: Levothyroxine 112 MCG Tab PO SCH (06:37)
[2020-04-20] MEDS: Omeprazole 20 MG Cap.CR PO SCH (06:37)
[2020-04-20] MEDS: Levothyroxine 25 MCG Tab PO SCH (06:37)
[2020-04-20 06:59] LABS: ANION GAP 5.8 mmol/L (10-20)
[2020-04-20] MEDS: Cholecalciferol (Vitamin D3) 25 MCG Tab PO SCH (08:09)
[2020-04-20] MEDS: Doxycycline 100 MG Cap PO SCH ×2 (08:09→20:07)
[2020-04-20] MEDS: buPROPion 150 MG Tab.ER PO SCH (08:09)
[2020-04-20] MEDS: Furosemide 40 MG/4 ML VIAL IV SCH ×2 (08:09→16:12)
[2020-04-20] MEDS: Oseltamivir 30 MG Cap PO SCH ×2 (08:09→20:15)
[2020-04-20] MEDS: Potassium Chloride 20 MEQ Tab.ER PO SCH ×2 (08:09→20:17)
[2020-04-20] MEDS: Nystatin Susp 100,000 Unit/ML 5 ML UD Cup PO SCH ×4 (08:09→20:17)
[2020-04-20] MEDS: DULoxetine 60 MG Cap PO SCH (08:10)
[2020-04-20] MEDS: Multivitamins with Iron/Calcium/Folic Acid/Minerals Tab PO SCH (08:10)
[2020-04-20] MEDS: Cyanocobalamin (Vitamin B12) 250 MCG Tab PO SCH (08:10)
[2020-04-20] MEDS: Sodium Chloride 0.9% 10 ML Syringe FLUSH PRN ×3 (08:11→20:03)
[2020-04-20] MEDS ORDERED: Albuterol/Ipratropium 3.0-0.5 MG/3 ML Neb Soln NEB PRN (09:26)
[2020-04-20] MEDS: Menthol/Methyl Salicylate 85 GM Tube TOP SCH ×2 (11:38→20:19)
[2020-04-20] MEDS: cefTRIAXone 1 GM Vial IVPUSH SCH (11:38)
[2020-04-20] MEDS: Glycopyrrolate 15.6 MCG Cap.W.Dev Kit of 6 IH SCH ×2 (11:43→20:20)
[2020-04-20] MEDS: Fluticasone-Salmeterol 232-14 MCG Powder Inhalent INH SCH ×2 (11:44→20:19)
[2020-04-20] MEDS: Acetaminophen 500 MG Tab PO SCH ×2 (16:12→20:20)
[2020-04-20] MEDS: Magnesium Oxide 400 MG Tab PO SCH ×2 (16:13→20:16)
--- NOTE | 2020-04-20 16:35 | PN ---
Progress Note for ESTUARDO GAMBINO Date: 04/20/2020 Room #: VM.214 SUBJECTIVE: This is hospital day #2 for a 60-year-old admitted with influenza B and a COPD exacerbation with also concerns for diastolic heart failure. She did diurese 1.8 L yesterday. She states she is feeling really well overall. Once during the late evening, her sats did go down into the 75% range when she was up and moving around, but they recovered. She was turned up to 3 L, but now is satting 96% on 3 L. She is denying any chest pain. She is denying any worsening of cough. She only wheezes when she is up moving around. Her urine was positive for gram-negatives. She has only been on doxycycline for her COPD. She got steroids on admission, but has not gotten further steroids. She would prefer to use her home inhalers over the nebs. She did not get her Neurontin last night. Her feet are sort of painful, like arthritis in her toes. Today, she would like to try some Beng[place] cream on that. She also got quite agitated by something she saw in the news per nursing. She is on all her psychotropic medications. OBJECTIVE: Vital Signs: Her weight is 94.1 kg. Her temp is 97.9, pulse 91, blood pressure 149/72, respiratory rate 20, O2 of 96% on 3 L. General: She is in no acute distress. Heart: Regular rate and rhythm. Lungs: Lung sounds are clear to auscultation in the upper lungs. No wheezing. Lower lungs have some decreased air entry. Abdomen: Nondistended, nontender. Extremities: Warm and dry. No edema. Mental Status: She is alert. She is orientated x3. Psych: She is not depressed or anxious. LABORATORY DATA: Her lab work would include her to have a white count 11.6, hemoglobin 13.4, platelets 253. Sodium 139, potassium 3.8, chloride 98, bicarb 39, BUN 17, creatinine 1.0, glucose 125, lactic normal, calcium 9.2, AST down to 38, ALT down to 151, alkaline phosphatase down to 140. Troponin on admission was negative. Albumin 3.4. Urine showed 5 to 10 wbc's with gram-negatives in the urine. ASSESSMENT: 1. [id number] hypoxic and hypercapnic respiratory failure secondary to influenza B and a chronic obstructive pulmonary disease exacerbation with heart failure. The patient is symptomatically improving. We will continue to wean oxygen. 2. [id number] diastolic heart failure with known ejection fraction of 55% back in 2016. She will need another echo as outpatient. We will continue 40 of Lasix IV b.i.d. that should help her blood pressure. 3. Chronic obstructive pulmonary disease with exacerbation. We will change her nebs to p.r.n. I do not feel she needs further steroids. We will restart her home inhalers. We will continue the doxycycline. 4. Gram-negative urinary tract infection. We will start her on IV Rocephin. This will help her lungs as well. 5. Essential hypertension. Continue with current treatments. 6. Influenza B, on Tamiflu, day #2. 7. Anxiety and depression. Continue home medications. 8. Obstructive sleep apnea, refusing CPAP for the last several years. We will continue oxygen at night. 9. Deep venous thrombosis prophylaxis. She is on Lovenox. She had a CT that ruled out acute pulmonary embolism on this stay. PLAN: The patient is to continue on acute cares with IV Lasix. We will start IV Rocephin. We will repeat lab work tomorrow. She is on potassium supplements. She is on continuous pulse oximetry. She is now on IV Rocephin. MKA: 04/20/2020 16:04:50 MODL: 04/20/2020 16:26:23 /[id number]
[2020-04-20] MEDS ORDERED: Sertraline 100 MG Tab PO SCH (20:00)
[2020-04-20] MEDS ORDERED: ARIPiprazole 5 MG Tab PO SCH (20:00)
[2020-04-20] MEDS ORDERED: Gabapentin 100 MG Cap PO SCH (20:00)
[2020-04-20] MEDS ORDERED: Mirtazapine 15 MG Tab PO SCH (20:00)
[2020-04-20] MEDS ORDERED: Melatonin 3 MG Tab PO SCH (20:00)
[2020-04-20] MEDS ORDERED: Pramipexole 0.125 MG Tab PO SCH (20:00)
[2020-04-20] MEDS: Enoxaparin 40 MG/0.4 ML Syringe SUBCUT SCH (20:05)
[2020-04-20] MEDS: busPIRone 15 MG Tab PO SCH (20:09)
[2020-04-21] MEDS: Omeprazole 20 MG Cap.CR PO SCH (06:53)
[2020-04-21] MEDS: Levothyroxine 112 MCG Tab PO SCH (06:53)
[2020-04-21] MEDS: Levothyroxine 25 MCG Tab PO SCH (06:53)
[2020-04-21 06:55] VITALS: BP 136/63; PULSE 96
[2020-04-21 06:58] LABS: ANION GAP 5.3 mmol/L (5-15)
[2020-04-21] MEDS: DULoxetine 60 MG Cap PO SCH (08:16)
[2020-04-21] MEDS: Potassium Chloride 20 MEQ Tab.ER PO SCH (08:16)
[2020-04-21] MEDS: Doxycycline 100 MG Cap PO SCH (08:16)
[2020-04-21] MEDS: Oseltamivir 30 MG Cap PO SCH (08:16)
[2020-04-21] MEDS: Cyanocobalamin (Vitamin B12) 250 MCG Tab PO SCH (08:17)
[2020-04-21] MEDS: buPROPion 150 MG Tab.ER PO SCH (08:17)
[2020-04-21] MEDS: Acetaminophen 500 MG Tab PO SCH (08:17)
[2020-04-21] MEDS: Multivitamins with Iron/Calcium/Folic Acid/Minerals Tab PO SCH (08:17)
[2020-04-21] MEDS: Cholecalciferol (Vitamin D3) 25 MCG Tab PO SCH (08:17)
[2020-04-21] MEDS: Magnesium Oxide 400 MG Tab PO SCH (08:17)
[2020-04-21] MEDS: Menthol/Methyl Salicylate 85 GM Tube TOP SCH (08:18)
[2020-04-21] MEDS: Glycopyrrolate 15.6 MCG Cap.W.Dev Kit of 6 IH SCH (08:19)
[2020-04-21] MEDS: Fluticasone-Salmeterol 232-14 MCG Powder Inhalent INH SCH (08:20)
[2020-04-21] MEDS: Nystatin Susp 100,000 Unit/ML 5 ML UD Cup PO SCH ×2 (08:21→12:44)
[2020-04-21] MEDS: cefTRIAXone 1 GM Vial IVPUSH SCH (08:22)
[2020-04-21] MEDS: Furosemide 40 MG/4 ML VIAL IV SCH (08:22)
[2020-04-21] MEDS: Sodium Chloride 0.9% 10 ML Syringe FLUSH PRN (08:30)
--- NOTE | 2020-04-21 15:56 | PCM.DCSUM1 ---
Discharge Summary - Hospital Course Free Text/Narrative:: 60 yo presented to the clinic in Respiratory failure had not been taking lasix and then it was restarted last week but still her symptoms progressed and she ended up getting influenza B. She had no fever or chills. Had her chronic cough from COPD and wheezing with activity. Was given Nebs and IV steroids initially then continued on her same inhalers. Was diuresed a couple liters with IV lasix and her symptoms improved and her oxygen requirements also decreased. She was started on doxycycline for copd exacerbation and rocephin was added for a UTI. Her symptoms improved she was eating well and having normal BM's without diarrhea. She also received Tamfilu. Her Cr was 1.4 on admit and 1.1 on discharge. She had the CT PE protocol which showed only her old PE. She had no chest pain during her stay. Her regular psychotropic medications were continued with the exception of Abilify because she stopped it. I did also communicate with her psychiatrist Dr. Urban. Home oxygen even done today showed sats above 90 % on 2 L with activity. She had had oxygen before but didn't think she needed it any more. She was 86 % on Room air at rest and 93 % on 2 L when I saw her this AM on rounds. She had previously been on 3 L yesterday but was able to be weaned down. - Discharge Data Discharge Date: 04/21/20 Discharge Disposition: Home, Self-Care 01 Condition: Fair - Referral to Home Health Primary Care Physician: Eden Kitchen, DO - Discharge Diagnosis/Problem(s) (1) Acute exacerbation of chronic obstructive pulmonary disease (COPD) SNOMED Code(s): 472176192 ICD Code: J44.1 - CHRONIC OBSTRUCTIVE PULMONARY DISEASE W (ACUTE) EXACERBATION Status: Acute Priority: High (2) COPD (chronic obstructive pulmonary disease) SNOMED Code(s): 60750239 ICD Code: J44.9 - CHRONIC OBSTRUCTIVE PULMONARY DISEASE, UNSPECIFIED Status: Chronic Priority: High Qualifiers: COPD type: unspecified COPD Qualified Code(s): J44.9 - Chronic obstructive pulmonary disease, unspecified (3) Hypoxemia SNOMED Code(s): 600598756 ICD Code: R09.02 - HYPOXEMIA Status: Acute Priority: High (4) Influenza B SNOMED Code(s): 89611591 ICD Code: J10.1 - FLU DUE TO OTH IDENT INFLUENZA VIRUS W OTH RESP MANIFEST Status: Acute Priority: High (5) CHF, Congestive heart failure SNOMED Code(s): 80630501 ICD Code: I50.9 - HEART FAILURE, UNSPECIFIED Status: Chronic Priority: High Onset Date: 01/25/14 Problem Details: Chronic diastolic CHF with EF 65 % in 2016 plan outpatient repeat echo (6) Fibromyalgia SNOMED Code(s): 061033706 ICD Code: M79.7 - FIBROMYALGIA Status: Chronic Priority: Medium Problem Details: probably also some peripheral neuropathy in her toes with known prediabetes (7) Hypertension SNOMED Code(s): 04438420 ICD Code: I10 - ESSENTIAL (PRIMARY) HYPERTENSION Status: Chronic Priority: Medium Qualifiers: Hypertension type: essential hypertension Qualified Code(s): I10 - Essential (primary) hypertension (8) Hypothyroidism SNOMED Code(s): 35673446 ICD Code: E03.9 - HYPOTHYROIDISM, UNSPECIFIED Status: Chronic Priority: Medium Qualifiers: Hypothyroidism type: unspecified Qualified Code(s): E03.9 - Hypothyroidism, unspecified (9) Insomnia SNOMED Code(s): 112865736 ICD Code: G47.00 - INSOMNIA, UNSPECIFIED Status: Chronic Priority: Medium Qualifiers: Insomnia type: unspecified Qualified Code(s): G47.00 - Insomnia, unspecified (10) YVONNE (obstructive sleep apnea) SNOMED Code(s): 03277994 ICD Code: G47.33 - OBSTRUCTIVE SLEEP APNEA (ADULT) (PEDIATRIC) Status: Chronic Priority: Medium (11) Schizoaffective disorder SNOMED Code(s): 90868067 ICD Code: F25.9 - SCHIZOAFFECTIVE DISORDER, UNSPECIFIED Status: Chronic Priority: Medium Qualifiers: Schizoaffective disorder type: depressive Qualified Code(s): F25.1 - Schizoaffective disorder, depressive type (12) Smoker SNOMED Code(s): 26809130 ICD Code: F17.200 - NICOTINE DEPENDENCE, UNSPECIFIED, UNCOMPLICATED Status: Chronic Priority: Medium Problem Details: had quit but smoked about 1 cigarette per day in the days prior to admission (13) Pulmonary embolism SNOMED Code(s): 37501837 ICD Code: I26.99 - OTHER PULMONARY EMBOLISM WITHOUT ACUTE COR PULMONALE Status: Chronic Priority: Medium Problem Details: in 2009 Qualifiers: Pulmonary embolism type: unspecified Chronicity: chronic Acute cor pulmonale presence: unspecified Qualified Code(s): I27.82 - Chronic pulmonary embolism (14) Prediabetes SNOMED Code(s): 787593330 ICD Code: R73.03 - PREDIABETES Status: Chronic Priority: Medium Problem Details: did not require insulin during her stay (15) UTI (urinary tract infection) SNOMED Code(s): 73825336 ICD Code: N39.0 - URINARY TRACT INFECTION, SITE NOT SPECIFIED Status: Acute Priority: High Problem Details: due to gram negatives Qualifiers: Urinary tract infection type: acute cystitis - Patient Instructions Diet: Heart Healthy Diet Activity: As Tolerated Driving: May Drive Today Showering/Bathing: May Shower Notify Provider of: Fever, Increased Pain, Swelling and Redness, Nausea and/or Vomiting Other/Special Instructions: Recheck in the clinic in 1 week. bmp test in 1 week for the kidneys. Lasix 40 mg twice daily. Augmentin 875 mg twice daily for 5 more doses. Tamiflu twice daily for 5 more doses. Resume your same inhalers. 2 L of oxygen at rest and with sleep and increase it with activity based on how your test is today - Discharge Plan *PRESCRIPTION DRUG MONITORING PROGRAM REVIEWED*: Not Applicable *COPY OF PRESCRIPTION DRUG MONITORING REPORT IN PATIENT AMADOU: Not Applicable Prescriptions/Med Rec: Amoxicillin/Clavulanate K [Augmentin 875-125 MG] 1 tab PO BID #5 tablet Furosemide 40 mg PO BID #60 Oseltamivir [Tamiflu] 30 mg PO BID #5 cap Home Medications: Home Meds Budesonide/Formoterol [Symbicort 160-4.5 MCG] 2 puff INH BID 03/09/14 [History] Cholecalciferol (Vitamin D3) [Vitamin D3] 2,000 unit PO DAILY 03/09/14 [History] Cyanocobalamin (Vitamin B-12) [B-12] 250 mcg PO DAILY 03/09/14 [History] Melatonin 10 mg PO BEDTIME 03/09/14 [History] Multivitamin with Minerals [Multiple Vitamin] 1 tab PO DAILY 03/09/14 [History] Sertraline [Zoloft] 150 mg PO BEDTIME 03/09/14 [History] buPROPion [Wellbutrin XL] 300 mg PO DAILY 03/09/14 [History] Acetaminophen 1,000 mg PO BID 11/15/15 [History] Albuterol [Ventolin HFA] 1 puff INH Q4H PRN 11/15/15 [History] Umeclidinium [place] [Incruse Ellipta] 1 puff INH DAILY 11/15/15 [History] Gabapentin [Neurontin] 100 mg PO BEDTIME 04/18/19 [History] Magnesium 500 mg PO BID 04/18/19 [History] Potassium Chloride 20 meq PO BID 04/18/19 [History] Pramipexole Di-HCl [Mirapex] 0.25 mg PO BEDTIME 04/18/19 [History] DULoxetine [Cymbalta] 60 mg PO DAILY 04/19/20 [History] Diclofenac Sodium [Voltaren 1% Gel] 4 gram TOP QID 04/19/20 [History] Mirtazapine 7.5 - 15 mg PO BEDTIME 04/19/20 [History] Nystatin 5 ml PO QID 04/19/20 [History] [place]ammoth-3 Acid Ethyl Esters [Lovaza] 1 gm PO BIDMEALS 04/19/20 [History] Omeprazole 20 mg PO DAILY 04/19/20 [History] busPIRone [Buspar] 45 mg PO BEDTIME 04/19/20 [History] guaiFENesin [Robitussin] 5 ml PO Q6H PRN 04/19/20 [History] tiZANidine [Zanaflex] 2 mg PO TID PRN 04/19/20 [History] Levothyroxine Sodium 137 mcg PO ACBREAKFAST 04/20/20 [History] Amoxicillin/Clavulanate K [Augmentin 875-125 MG] 1 tab PO BID #5 tablet 04/21/20 [Rx] Furosemide 40 mg PO BID #60 04/21/20 [Rx] Menthol/Methyl Salicylate [Icy Hot] 0 gm TOP BID tube 04/21/20 [Rx] Oseltamivir [Tamiflu] 30 mg PO BID #5 cap 04/21/20 [Rx] Oxygen Therapy Mode: Nasal Cannula Patient Handouts: Influenza, Adult, [id number], Ceftriaxone injection, Enoxaparin injection Forms: ED Department Discharge Referrals: Eden Kitchen DO [Primary Care Provider] - - Discharge Summary/Plan Comment DC Time >30 min.: Yes - General Info Date of Service: 04/21/20 Functional Status: Reports: Pain Controlled, Tolerating Diet, Ambulating, Urinating - Review of Systems General: Denies: Fever, Weakness, Fatigue HEENT: Reports: No Symptoms Pulmonary: Reports: Shortness of Breath, Cough. Denies: Pleuritic Chest Pain, Wheezing Cardiovascular: Reports: Dyspnea on Exertion. Denies: Chest Pain, Palpitations, Orthopnea, Lightheadedness Gastrointestinal: Denies: Abdominal Pain, Constipation, Decreased Appetite, Diarrhea Genitourinary: Denies: Dysuria, Frequency, Burning Musculoskeletal: Reports: Other (toe pain). Denies: Neck Pain, Back Pain, Joint Pain Skin: Denies: Cyanosis, Jaundice Neurological: Reports: No Symptoms Psychiatric: Reports: Mood Lability - Patient Data Vitals - Most Recent: Last Vital Signs Temp 97 F 04/21/20 06:55 Pulse 96 04/21/20 06:55 Resp 18 04/21/20 06:55 BP 136/63 04/21/20 06:55 Pulse Ox 93 L 04/21/20 08:00 Weight - Most Recent: 89.494 kg I&O - Last 24 hours: Intake & Output 04/21/20 04/21/20 04/21/20 06:59 14:59 22:59 Intake Total 240 360 Output Total 1000 Balance -760 360 Lab Results - Last 24 hrs: Laboratory Results - last 24 hr 04/21/20 04/21/20 04/21/20 Range/Units 06:15 06:15 06:28 WBC 10.3 H (4.0-10.0) x10^3/uL RBC 5.37 (4.00-5.50) x10^6/uL Hgb 14.6 (12.0-16.0) g/dL Hct 48.4 H (33.0-47.0) % MCV 90.1 (78.0-93.0) fL MCH 27.2 (26.0-32.0) pg MCHC 30.2 L (32.0-36.0) g/dL RDW Coeff of Ksenia 17.3 H (10.0-15.0) % Plt Count 265 (130-400) x10^3/uL Add Manual Diff Yes Neutrophils % (Manual) 81 H (50-80) % Band Neutrophils % 1 (0-6) % Lymphocytes % (Manual) 15 L (25-50) % Eosinophils % (Manual) 3 (0-4) % Platelet Estimate Adequate Anisocytosis 2+ moderate H Tear Drop Cells 1+ slight H Ovalocytes 1+ slight H Sodium 138 (136-145) mmol/L Potassium 4.3 (3.5-5.1) mmol/L Chloride 99 (98-107) mmol/L Carbon Dioxide 38 H (21-32) mmol/L Anion Gap 5.3 (5-15) mmol/L BUN 21 H (7-18) mg/dL Creatinine 1.1 H (0.55-1.02) mg/dL Est Cr Clr Drug Dosing 52.89 mL/min Estimated GFR (MDRD) 51 Glucose 153 H (74-106) mg/dL POC Glucose 138 H (74-106) mg/dL Calcium 8.9 (8.5-10.1) mg/dL Corrected Calcium 9.70 (8.5-10.1) mg/dL Total Bilirubin 0.5 (0.2-1.0) mg/dL AST 50 H (15-37) U/L ALT 116 H (14-59) U/L Alkaline Phosphatase 129 H (46-116) U/L Total Protein 7.3 (6.4-8.2) g/dL Albumin 3.0 L (3.4-5.0) g/dL Globulin 4.3 Albumin/Globulin Ratio 0.70 SAMM Results - Last 24 hrs: Microbiology 04/19/20 12:14 Influenza Type A Antigen Screen - Final Nasopharyngeal Swab NEGATIVE INFLUENZA A VIRUS AG REFERENCE RANGE: NEGATIVE Influenza Type B Antigen Screen - Final NEGATIVE INFLUENZA B VIRUS AG REFERENCE RANGE: NEGATIVE 04/19/20 12:44 Aerobic Blood Culture - Preliminary Blood - Venous - Lab Draw NO GROWTH AFTER 2 DAYS Anaerobic Blood Culture - Preliminary NO GROWTH AFTER 2 DAYS 04/19/20 12:40 Aerobic Blood Culture - Preliminary Blood - Venous NO GROWTH AFTER 2 DAYS Anaerobic Blood Culture - Preliminary NO GROWTH AFTER 2 DAYS 04/19/20 13:03 Urine Culture - Final Urine, Clean Catch Gram Negative Rods Med Orders - Current: Current Medications Discontinued Medications Acetaminophen (Tylenol Extra Strength) 1,000 mg PO BID LUCÍA Last Admin: 04/21/20 08:17 Dose: 1,000 mg Documented by: Albuterol/Ipratropium (Duoneb 3.0-0.5 Mg/3 Ml) 3 ml NEB Q4HRRT [facility] Last Admin: 04/20/20 06:37 Dose: 3 ml Documented by: Albuterol/Ipratropium (Duoneb 3.0-0.5 Mg/3 Ml) 3 ml NEB Q4HRRT PRN PRN Reason: Cough Aripiprazole (Abilify) 10 mg PO BEDTIME [facility] Last Admin: 04/20/20 20:13 Dose: Not Given Documented by: Bupropion HCl (Wellbutrin Xl) 300 mg PO DAILY [facility] Last Admin: 04/21/20 08:17 Dose: 300 mg Documented by: Buspirone HCl (Buspar) 45 mg PO BEDTIME [facility] Last Admin: 04/20/20 20:09 Dose: 45 mg Documented by: Ceftriaxone Sodium (Rocephin) 1 gm IVPUSH DAILY [facility] Last Admin: 04/21/20 08:22 Dose: 1 gm Documented by: Cholecalciferol (Vitamin D3) 50 mcg PO DAILY [facility] Last Admin: 04/21/20 08:17 Dose: 50 mcg Documented by: Cyanocobalamin (Vitamin B12) 250 mcg PO DAILY [facility] Last Admin: 04/21/20 08:17 Dose: 250 mcg Documented by: Dexamethasone (Dexamethasone) 8 mg IV ONETIME ONE Stop: 04/19/20 11:59 Last Admin: 04/19/20 12:19 Dose: Not Given Documented by: Dexamethasone (Decadron) Confirm Administered Dose 8 mg .ROUTE .STK-MED ONE Stop: 04/19/20 12:13 Last Admin: 04/19/20 12:19 Dose: 8 mg Documented by: Doxycycline Hyclate (Vibramycin) 100 mg PO BID [facility] Last Admin: 04/21/20 08:16 Dose: 100 mg Documented by: Duloxetine HCl (Cymbalta) 60 mg PO DAILY [facility] Last Admin: 04/21/20 08:16 Dose: 60 mg Documented by: Enoxaparin Sodium (Lovenox) 40 mg SUBCUT BEDTIME [facility] Last Admin: 04/20/20 20:05 Dose: 40 mg Documented by: Fluconazole (Diflucan) 100 mg PO ONETIME ONE Stop: 04/19/20 13:45 Last Admin: 04/19/20 14:25 Dose: 100 mg Documented by: Furosemide (Lasix) 40 mg IV ONETIME ONE Stop: 04/19/20 13:17 Last Admin: 04/19/20 13:22 Dose: 40 mg Documented by: Furosemide (Lasix) 40 mg IV BIDDIURETIC [facility] Last Admin: 04/21/20 08:22 Dose: 40 mg Documented by: Gabapentin (Neurontin) 100 mg PO BEDTIME [facility] Last Admin: 04/20/20 20:16 Dose: 100 mg Documented by: Glycopyrrolate (Seebri Neohaler) 0 mcg IH BID [facility] Last Admin: 04/21/20 08:19 Dose: 1 inhalation Documented by: Guaifenesin (Robitussin) 100 mg PO Q6H PRN PRN Reason: Cough Lactated Ringer's (Ringers, Lactated) 1,000 mls @ 999 mls/hr IV ONETIME ONE Stop: 04/19/20 12:58 Last Admin: 04/19/20 12:17 Dose: 999 mls/hr Documented by: Iopamidol (Isovue-300 (61%)) 100 ml IVPUSH ONETIME ONE Stop: 04/19/20 15:39 Last Admin: 04/19/20 16:06 Dose: 100 ml Documented by: Levothyroxine Sodium (Levothyroxine) 25 mcg PO ACBREAKFAST [facility] Last Admin: 04/21/20 06:53 Dose: 25 mcg Documented by: Levothyroxine Sodium (Levothyroxine) 112 mcg PO ACBREAKFAST [facility] Last Admin: 04/21/20 06:53 Dose: 112 mcg Documented by: Magnesium Oxide (Magnesium Oxide) 400 mg PO BID [facility] Last Admin: 04/21/20 08:17 Dose: 400 mg Documented by: Melatonin (Melatonin) 9 mg PO BEDTIME [facility] Last Admin: 04/20/20 20:14 Dose: 9 mg Documented by: Methyl Salicylate (Icy Hot Cream) 0 gm TOP BID [facility] Last Admin: 04/21/20 08:18 Dose: 1 applic Documented by: Mirtazapine (Remeron) 15 mg PO BEDTIME [facility] Last Admin: 04/20/20 20:16 Dose: 15 mg Documented by: Multivitamins/Minerals (Thera M Plus) 1 tab PO DAILY [facility] Last Admin: 04/21/20 08:17 Dose: 1 tab Documented by: Nystatin (Mycostatin) 5 ml PO QID [facility] Last Admin: 04/21/20 12:44 Dose: 5 ml Documented by: Omeprazole (Omeprazole) 20 mg PO ACBREAKFAST [facility] Last Admin: 04/21/20 06:53 Dose: 20 mg Documented by: Oseltamivir Phosphate (Tamiflu) 75 mg PO BID [facility] Last Admin: 04/19/20 20:15 Dose: Not Given Documented by: Oseltamivir Phosphate (Tamiflu) 30 mg PO BID [facility] Last Admin: 04/21/20 08:16 Dose: 30 mg Documented by: Potassium Chloride (Klor-Con M20) 20 meq PO BID [facility] Last Admin: 04/21/20 08:16 Dose: 20 meq Documented by: Pramipexole Dihydrochloride (Mirapex) 0.25 mg PO BEDTIME [facility] Last Admin: 04/20/20 20:08 Dose: 0.25 mg Documented by: Fluticasone/Salmeterol (Fluticasone-Salmeterol 232-14 Mcg Powder Inha) 1 puff INH BID [facility] Last Admin: 04/21/20 08:20 Dose: 1 inhalation Documented by: Sertraline HCl (Zoloft) 150 mg PO BEDTIME [facility] Last Admin: 04/20/20 20:08 Dose: 150 mg Documented by: Sertraline HCl (Zoloft) 150 mg PO BEDTIME [facility] Sodium Chloride (Saline Flush) 10 ml FLUSH ASDIRECTED PRN PRN Reason: Keep Vein Open Last Admin: 04/21/20 08:30 Dose: 10 ml Documented by: - Exam Quality Assessment: Reports: Supplemental Oxygen General: Reports: Alert, Oriented, Cooperative, No Acute Distress HEENT: Reports: Pupils Equal Neck: Reports: Supple, Trachea Midline, No JVD, No Thyromegaly. Denies: Lymphadenopathy Lungs: Reports: Clear to Auscultation, Normal Respiratory Effort. Denies: Crackles, Rales, Rhonchi, Wheezing Cardiovascular: Reports: Regular Rate, Regular Rhythm. Denies: Murmurs GI/Abdominal Exam: Normal Bowel Sounds, Soft, Non-Tender Extremities: Normal Inspection, Non-Tender, No Pedal Edema, Normal Capillary Refill Skin: Reports: Warm, Dry, Intact Neurological: Reports: No New Focal Deficit Psy/Mental Status: Reports: Alert, Normal Affect, Normal Mood
[2020-04-21] MEDS ORDERED: Sertraline 50 MG Tab PO SCH (20:00)
== END 2020-04-21 13:10 | disposition home or self-care (01) | DRG 291 ==
LOC: VM.ED 11:34 → VM.MS 13:16
PROVIDERS: ADMIT Internal Medicine; ATTEND Internal Medicine
DX: J96.91 Respiratory failure, unspecified with hypoxia (principal); J44.9 Chronic obstructive pulmonary disease, unspecified; I11.0 Hypertensive heart disease with heart failure; I50.9 Heart failure, unspecified; E78.00 Pure hypercholesterolemia, unspecified; G47.30 Sleep apnea, unspecified; J96.21 Acute and chronic respiratory failure with hypoxia; J44.1 Chronic obstructive pulmonary disease with (acute) exacerbation; I27.82 Chronic pulmonary embolism; N30.00 Acute cystitis without hematuria; I50.33 Acute on chronic diastolic (congestive) heart failure; J10.1 Influenza due to other identified influenza virus with other respiratory manifestations; M79.7 Fibromyalgia; E03.9 Hypothyroidism, unspecified; Z99.81 Dependence on supplemental oxygen; G47.00 Insomnia, unspecified; G47.33 Obstructive sleep apnea (adult) (pediatric); F25.1 Schizoaffective disorder, depressive type; F17.210 Nicotine dependence, cigarettes, uncomplicated; R73.03 Prediabetes; E66.9 Obesity, unspecified; F41.9 Anxiety disorder, unspecified; F10.21 Alcohol dependence, in remission; J42 Unspecified chronic bronchitis; E78.5 Hyperlipidemia, unspecified; N39.3 Stress incontinence (female) (male); K29.70 Gastritis, unspecified, without bleeding; E78.1 Pure hyperglyceridemia; G43.909 Migraine, unspecified, not intractable, without status migrainosus; F32.9 Major depressive disorder, single episode, unspecified; H52.4 Presbyopia; H52.10 Myopia, unspecified eye; M81.0 Age-related osteoporosis without current pathological fracture; M35.3 Polymyalgia rheumatica; F25.9 Schizoaffective disorder, unspecified; Z79.899 Other long term (current) drug therapy; Z79.890 Hormone replacement therapy; Z88.8 Allergy status to other drugs, medicaments and biological substances; Z98.49 Cataract extraction status, unspecified eye; Z87.01 Personal history of pneumonia (recurrent); Z86.711 Personal history of pulmonary embolism; Z90.49 Acquired absence of other specified parts of digestive tract; Z98.51 Tubal ligation status; K44.9 Diaphragmatic hernia without obstruction or gangrene; K21.9 Gastro-esophageal reflux disease without esophagitis; Z68.30 Body mass index [BMI] 30.0-30.9, adult; Z20.822 Contact with and (suspected) exposure to COVID-19
CPT/HCPCS: 36415; 36600; 71045; 71275; 80053; 81001; 82803; 82962; 83605; 83735; 83880; 84484; 85025; 85379; 85610; 85730; 86140; 87040; 87086; 87804; 87804-59; 93005; 93010; 94640; 94760; 99284; A9270-GY; J0696; J1100; J1650; J1940; J7120; J7620-GY; Q9967; U0002

== ENCOUNTER 2021-09-23 10:32 | Inpatient (IN) | payer MEDICARE, MEDICAID ==
[2021-09-23] MEDS ORDERED: Ondansetron 4 MG Tab.DIS PO PRN (10:36)
[2021-09-23] MEDS ORDERED: Sodium Chloride 0.9% 10 ML Syringe FLUSH PRN (10:38)
[2021-09-23 11:27] LABS: CHLORIDE,CL 98 mmol/L (98-107); SODIUM,NA 138 mmol/L (136-145)
[2021-09-23] MEDS ORDERED: Albuterol/Ipratropium 3.0-0.5 MG/3 ML Neb Soln NEB PRN (11:30)
[2021-09-23 11:37] LABS: ANION GAP 11.2 mmol/L (5-15); ESTIMATED GFR 57 mL/min (>=60)
[2021-09-23] MEDS ORDERED: Furosemide 20 MG/2 ML VIAL IV ONE (14:35)
[2021-09-23] MEDS: Azithromycin 250 MG Tab PO SCH (15:08)
[2021-09-23] MEDS: cefTRIAXone 1 GM Vial IVPUSH SCH (15:08)
[2021-09-23] MEDS: Diclofenac Sodium 1% Gel 100 GM Tube TOP SCH ×2 (17:13→20:48)
[2021-09-23] MEDS: Fish Oil/Omega-3 Fatty Acids 1 Gm Cap PO SCH (18:14)
[2021-09-23] MEDS: busPIRone 15 MG Tab PO SCH (20:41)
[2021-09-23] MEDS: Pramipexole 0.125 MG Tab PO SCH (20:42)
[2021-09-23] MEDS: Acetaminophen 500 MG Tab PO SCH (20:42)
[2021-09-23] MEDS: Sertraline 100 MG Tab PO SCH (20:43)
[2021-09-23] MEDS: Oxybutynin 5 MG Tab PO SCH (20:43)
[2021-09-23] MEDS: Cyclobenzaprine 10 MG Tab PO PRN (20:44)
[2021-09-23] MEDS: Gabapentin 100 MG Cap PO SCH (20:45)
[2021-09-23] MEDS: Melatonin 3 MG Tab PO SCH (20:46)
[2021-09-23] MEDS: Arformoterol 15 MCG/2 ML Neb Soln NEB SCH (20:47)
[2021-09-23] MEDS: Menthol 10%/Methyl Salicylate 15% 85 GM Tube TOP SCH (20:48)
[2021-09-23] MEDS: Budesonide 0.5 MG/2 ML Neb Susp NEB SCH (20:49)
[2021-09-24] MEDS: Budesonide 0.5 MG/2 ML Neb Susp NEB SCH ×2 (06:13→20:26)
[2021-09-24] MEDS: Omeprazole 20 MG Cap.CR PO SCH (06:13)
[2021-09-24] MEDS: Levothyroxine 112 MCG Tab PO SCH (06:13)
[2021-09-24] MEDS: Arformoterol 15 MCG/2 ML Neb Soln NEB SCH ×2 (06:13→20:26)
[2021-09-24] MEDS: Levothyroxine 25 MCG Tab PO SCH (06:14)
[2021-09-24] MEDS ORDERED: Non-Formulary Medication 1 Each (Levothyroxine Sodium [Levothyroxine Sodium] 137 MCG Table PO SCH (07:00)
[2021-09-24 08:11] LABS: ANION GAP 8.4 mmol/L (5-15)
[2021-09-24] MEDS: Cyanocobalamin (Vitamin B12) 250 MCG Tab PO SCH (08:37)
[2021-09-24] MEDS: Multivitamins with Iron/Calcium/Folic Acid/Minerals Tab PO SCH (08:37)
[2021-09-24] MEDS: busPIRone 15 MG Tab PO SCH ×2 (08:38→20:30)
[2021-09-24] MEDS: Potassium Chloride 20 MEQ Tab.ER PO SCH (08:38)
[2021-09-24] MEDS: Oxybutynin 5 MG Tab PO SCH ×2 (08:38→20:32)
[2021-09-24] MEDS: Cholecalciferol (Vitamin D3) 25 MCG Tab PO SCH (08:38)
[2021-09-24] MEDS: Menthol 10%/Methyl Salicylate 15% 85 GM Tube TOP SCH ×2 (08:39→20:32)
[2021-09-24] MEDS: Fish Oil/Omega-3 Fatty Acids 1 Gm Cap PO SCH ×2 (08:39→18:21)
[2021-09-24] MEDS: buPROPion 150 MG Tab.ER PO SCH (08:39)
[2021-09-24] MEDS: Acetaminophen 500 MG Tab PO SCH ×2 (08:39→20:26)
[2021-09-24] MEDS: Azithromycin 250 MG Tab PO SCH (08:39)
[2021-09-24] MEDS: cefTRIAXone 1 GM Vial IVPUSH SCH (08:40)
[2021-09-24] MEDS: Magnesium Oxide 400 MG Tab PO SCH (08:43)
[2021-09-24] MEDS ORDERED: Furosemide 20 MG/2 ML VIAL IV ONE ×2 (10:07→14:00)
[2021-09-24] MEDS: Potassium Chloride 10 MEQ Tab.ER PO SCH ×2 (11:22→18:20)
[2021-09-24] MEDS: Enoxaparin 40 MG/0.4 ML Syringe SUBCUT SCH (11:22)
[2021-09-24] MEDS: Diclofenac Sodium 1% Gel 100 GM Tube TOP SCH ×3 (13:00→20:32)
[2021-09-24] MEDS ORDERED: LORazepam 2 MG/ML SDV IVPUSH PRN (15:30)
[2021-09-24] MEDS ORDERED: Flumazenil 0.1 MG/ML 5 ML MDV IVPUSH PRN (15:30)
[2021-09-24] MEDS: Cyclobenzaprine 10 MG Tab PO PRN (20:26)
[2021-09-24] MEDS: Pramipexole 0.125 MG Tab PO SCH (20:30)
[2021-09-24] MEDS: Gabapentin 100 MG Cap PO SCH (20:31)
[2021-09-24] MEDS: Sertraline 100 MG Tab PO SCH (20:31)
[2021-09-24] MEDS: Melatonin 3 MG Tab PO SCH (20:31)
[2021-09-25] MEDS: Arformoterol 15 MCG/2 ML Neb Soln NEB SCH ×2 (06:16→20:11)
[2021-09-25] MEDS: Levothyroxine 25 MCG Tab PO SCH (06:17)
[2021-09-25] MEDS: Budesonide 0.5 MG/2 ML Neb Susp NEB SCH ×2 (06:17→20:11)
[2021-09-25] MEDS: Omeprazole 20 MG Cap.CR PO SCH (06:18)
[2021-09-25] MEDS: Levothyroxine 112 MCG Tab PO SCH (06:18)
[2021-09-25 07:54] LABS: ANION GAP 11.1 mmol/L (5-15)
[2021-09-25] MEDS: Acetaminophen 500 MG Tab PO SCH ×2 (08:21→20:11)
[2021-09-25] MEDS: Multivitamins with Iron/Calcium/Folic Acid/Minerals Tab PO SCH (08:21)
[2021-09-25] MEDS: Potassium Chloride 20 MEQ Tab.ER PO SCH (08:22)
[2021-09-25] MEDS: Oxybutynin 5 MG Tab PO SCH ×2 (08:22→20:12)
[2021-09-25] MEDS: Cholecalciferol (Vitamin D3) 25 MCG Tab PO SCH (08:22)
[2021-09-25] MEDS: Magnesium Oxide 400 MG Tab PO SCH (08:22)
[2021-09-25] MEDS: busPIRone 15 MG Tab PO SCH ×2 (08:22→20:12)
[2021-09-25] MEDS: Azithromycin 250 MG Tab PO SCH (08:22)
[2021-09-25] MEDS: Fish Oil/Omega-3 Fatty Acids 1 Gm Cap PO SCH ×2 (08:22→17:57)
[2021-09-25] MEDS: Cyanocobalamin (Vitamin B12) 250 MCG Tab PO SCH (08:23)
[2021-09-25] MEDS: Menthol 10%/Methyl Salicylate 15% 85 GM Tube TOP SCH ×2 (08:23→20:13)
[2021-09-25] MEDS: cefTRIAXone 1 GM Vial IVPUSH SCH (08:23)
[2021-09-25] MEDS: Diclofenac Sodium 1% Gel 100 GM Tube TOP SCH ×4 (08:24→20:13)
[2021-09-25] MEDS: buPROPion 150 MG Tab.ER PO SCH (08:24)
[2021-09-25] MEDS ORDERED: Furosemide 20 MG/2 ML VIAL IV ONE (10:49)
[2021-09-25] MEDS: Enoxaparin 40 MG/0.4 ML Syringe SUBCUT SCH (12:15)
[2021-09-25] MEDS: Sertraline 100 MG Tab PO SCH (20:11)
[2021-09-25] MEDS: Melatonin 3 MG Tab PO SCH (20:11)
[2021-09-25] MEDS: Gabapentin 100 MG Cap PO SCH (20:12)
[2021-09-25] MEDS: Pramipexole 0.125 MG Tab PO SCH (20:31)
[2021-09-26] MEDS: Arformoterol 15 MCG/2 ML Neb Soln NEB SCH (06:00)
[2021-09-26] MEDS: Budesonide 0.5 MG/2 ML Neb Susp NEB SCH (06:00)
[2021-09-26] MEDS: Levothyroxine 25 MCG Tab PO SCH (06:01)
[2021-09-26] MEDS: Omeprazole 20 MG Cap.CR PO SCH (06:01)
[2021-09-26] MEDS: Levothyroxine 112 MCG Tab PO SCH (06:01)
[2021-09-26 06:47] LABS: ANION GAP 14.9 mmol/L (5-15)
[2021-09-26] MEDS: buPROPion 150 MG Tab.ER PO SCH (09:30)
[2021-09-26] MEDS: Acetaminophen 500 MG Tab PO SCH (09:30)
[2021-09-26] MEDS ORDERED: Furosemide 20 MG Tab PO ONE (09:30)
[2021-09-26] MEDS: Azithromycin 250 MG Tab PO SCH (09:31)
[2021-09-26] MEDS: Fish Oil/Omega-3 Fatty Acids 1 Gm Cap PO SCH (09:31)
[2021-09-26] MEDS: Cyanocobalamin (Vitamin B12) 250 MCG Tab PO SCH (09:31)
[2021-09-26] MEDS: busPIRone 15 MG Tab PO SCH (09:31)
[2021-09-26] MEDS: Magnesium Oxide 400 MG Tab PO SCH (09:31)
[2021-09-26] MEDS: Multivitamins with Iron/Calcium/Folic Acid/Minerals Tab PO SCH (09:31)
[2021-09-26] MEDS: Oxybutynin 5 MG Tab PO SCH (09:31)
[2021-09-26] MEDS: Cholecalciferol (Vitamin D3) 25 MCG Tab PO SCH (09:31)
[2021-09-26] MEDS: Menthol 10%/Methyl Salicylate 15% 85 GM Tube TOP SCH (09:32)
[2021-09-26] MEDS: Diclofenac Sodium 1% Gel 100 GM Tube TOP SCH ×2 (09:32→12:06)
[2021-09-26] MEDS: cefTRIAXone 1 GM Vial IVPUSH SCH (10:19)
[2021-09-26] MEDS: Enoxaparin 40 MG/0.4 ML Syringe SUBCUT SCH (11:27)
[2021-09-26 12:31] VITALS: BP 131/63; PULSE 88
== END 2021-09-26 16:00 | disposition home or self-care (01) | DRG 193 ==
LOC: UNDOADMIN 10:32 → VM.MS 10:32 → UNDODISIN 09-26 16:00
PROVIDERS: ADMIT Internal Medicine; ATTEND Internal Medicine
DX: J18.9 Pneumonia, unspecified organism (principal); J96.21 Acute and chronic respiratory failure with hypoxia; I50.33 Acute on chronic diastolic (congestive) heart failure; J44.0 Chronic obstructive pulmonary disease with (acute) lower respiratory infection; Z20.822 Contact with and (suspected) exposure to COVID-19; F41.9 Anxiety disorder, unspecified; F32.A Depression, unspecified; G47.33 Obstructive sleep apnea (adult) (pediatric); R19.7 Diarrhea, unspecified; M79.7 Fibromyalgia; F25.1 Schizoaffective disorder, depressive type; Z88.8 Allergy status to other drugs, medicaments and biological substances; Z90.49 Acquired absence of other specified parts of digestive tract
CPT/HCPCS: 36415; 71046; 80048; 80053; 83605; 83735; 83880; 84443; 84484; 85018; 85025; 85027; 85652; 86140; 87040; 87070; 87077; 87205; 93005; 94640; 94760; A9270-GY; J0696; J1650; J1940; J2060; J7620-GY; U0002

== ENCOUNTER 2021-10-03 10:11 | Emergency (ER) | payer MEDICARE, MEDICAID ==
[2021-10-03] MEDS ORDERED: Midazolam 1 MG/ML 2 ML SDV IVPUSH PRN (10:46)
[2021-10-03] MEDS ORDERED: fentaNYL 50 MCG/ML SDV IVPUSH ONE ×2 (10:55→11:05)
[2021-10-03 10:59] LABS: PTT,PARTIAL THROMBOPLSTIN TIME 22.3 SEC (20.5-30.9)
[2021-10-03] MEDS ORDERED: fentaNYL 50 MCG/ML SDV ONE (11:02)
[2021-10-03 11:05] LABS: ANION GAP 11.1 mmol/L (5-15)
[2021-10-03 12:04] VITALS: BP 123/46; PULSE 78
== END 2021-10-03 11:45 | disposition short-term general hospital (02) ==
LOC: VM.ED 10:11
DX: S82.852A Displaced trimalleolar fracture of left lower leg, initial encounter for closed fracture (principal); J44.9 Chronic obstructive pulmonary disease, unspecified; I11.0 Hypertensive heart disease with heart failure; I50.9 Heart failure, unspecified; E78.00 Pure hypercholesterolemia, unspecified; K21.9 Gastro-esophageal reflux disease without esophagitis; E03.9 Hypothyroidism, unspecified; Z88.8 Allergy status to other drugs, medicaments and biological substances; Z79.899 Other long term (current) drug therapy; W18.39XA Other fall on same level, initial encounter
CPT/HCPCS: 27818; 29515; 36415; 73600-LT; 73610-LT; 80053; 85025; 85610; 85730; 99284; 99284-25; J2250; J3010

== ENCOUNTER 2021-10-21 11:40 | Inpatient (IN) | payer MEDICARE, MEDICAID ==
[2021-10-21] MEDS ORDERED: Bisacodyl 10 MG Supp RECTAL PRN (12:19)
[2021-10-21] MEDS ORDERED: Oxybutynin 5 MG Tab PO PRN (12:19)
[2021-10-21] MEDS ORDERED: tiZANidine 4 MG Tab PO PRN (12:29)
[2021-10-21] MEDS: Albuterol/Ipratropium 3.0-0.5 MG/3 ML Neb Soln NEB SCH ×2 (12:57→20:40)
[2021-10-21] MEDS: oxyCODONE 5 MG Tab PO PRN ×2 (16:06→20:55)
[2021-10-21] MEDS: Enoxaparin 40 MG/0.4 ML Syringe SUBCUT SCH (20:40)
[2021-10-21] MEDS: Sertraline 100 MG Tab PO SCH (20:40)
[2021-10-21] MEDS: Pramipexole 0.125 MG Tab PO SCH (20:40)
[2021-10-21] MEDS: Budesonide 0.5 MG/2 ML Neb Susp NEB SCH (20:40)
[2021-10-21] MEDS: Gabapentin 100 MG Cap PO SCH (20:41)
[2021-10-21] MEDS: Melatonin 3 MG Tab PO SCH (20:41)
[2021-10-21] MEDS: Pregabalin 50 MG Cap PO SCH (20:42)
[2021-10-21] MEDS: busPIRone 15 MG Tab PO SCH (20:42)
[2021-10-22] MEDS: Omeprazole 20 MG Cap.CR PO SCH (06:01)
[2021-10-22] MEDS: Levothyroxine 112 MCG Tab PO SCH (06:01)
[2021-10-22] MEDS: oxyCODONE 5 MG Tab PO PRN ×3 (06:02→21:02)
[2021-10-22] MEDS: Budesonide 0.5 MG/2 ML Neb Susp NEB SCH (07:08)
[2021-10-22] MEDS: Albuterol/Ipratropium 3.0-0.5 MG/3 ML Neb Soln NEB SCH (07:08)
[2021-10-22] MEDS: Potassium Chloride 10 MEQ Tab.ER PO SCH (08:51)
[2021-10-22] MEDS: Furosemide 20 MG Tab PO SCH (08:52)
[2021-10-22] MEDS: Levothyroxine 25 MCG Tab PO SCH (08:52)
[2021-10-22] MEDS: buPROPion 150 MG Tab.ER PO SCH (08:52)
[2021-10-22] MEDS: busPIRone 15 MG Tab PO SCH ×2 (08:52→21:03)
[2021-10-22] MEDS: Pregabalin 50 MG Cap PO SCH ×2 (08:52→21:03)
[2021-10-22] MEDS: Polyethylene Glycol 3350 Powder 17 GM Packet PO SCH (08:52)
[2021-10-22] MEDS ORDERED: buPROPion 150 MG Tab.ER PO SCH (09:00)
[2021-10-22] MEDS ORDERED: Albuterol/Ipratropium 3.0-0.5 MG/3 ML Neb Soln NEB PRN (09:42)
[2021-10-22] MEDS: Cyclobenzaprine 10 MG Tab PO PRN ×2 (10:10→21:00)
[2021-10-22] MEDS: Enoxaparin 40 MG/0.4 ML Syringe SUBCUT SCH ×2 (10:10→21:06)
[2021-10-22] MEDS: Acetaminophen 325 MG Tab PO PRN (15:55)
[2021-10-22] MEDS: Melatonin 3 MG Tab PO SCH (21:00)
[2021-10-22] MEDS: Gabapentin 100 MG Cap PO SCH (21:01)
[2021-10-22] MEDS: Pramipexole 0.125 MG Tab PO SCH (21:02)
[2021-10-22] MEDS: Sertraline 100 MG Tab PO SCH (21:03)
[2021-10-23] MEDS: Cyclobenzaprine 10 MG Tab PO PRN ×2 (05:46→17:41)
[2021-10-23] MEDS: oxyCODONE 5 MG Tab PO PRN ×2 (05:47→17:40)
[2021-10-23] MEDS: Omeprazole 20 MG Cap.CR PO SCH (07:24)
[2021-10-23] MEDS: Levothyroxine 112 MCG Tab PO SCH (07:24)
[2021-10-23] MEDS: Enoxaparin 40 MG/0.4 ML Syringe SUBCUT SCH ×2 (08:58→20:36)
[2021-10-23] MEDS: buPROPion 150 MG Tab.ER PO SCH (08:58)
[2021-10-23] MEDS: Furosemide 20 MG Tab PO SCH (08:59)
[2021-10-23] MEDS: Potassium Chloride 10 MEQ Tab.ER PO SCH (08:59)
[2021-10-23] MEDS: Levothyroxine 25 MCG Tab PO SCH (08:59)
[2021-10-23] MEDS: Pregabalin 50 MG Cap PO SCH ×2 (08:59→20:36)
[2021-10-23] MEDS: FLUTICASONE FUROATE INH SCH (09:01)
[2021-10-23] MEDS: UMECLIDINIUM INH SCH (09:01)
[2021-10-23] MEDS: Polyethylene Glycol 3350 Powder 17 GM Packet PO SCH (09:01)
[2021-10-23] MEDS: busPIRone 15 MG Tab PO SCH ×2 (09:01→20:34)
[2021-10-23] MEDS: VILANTEROL INH SCH (09:01)
[2021-10-23] MEDS: Acetaminophen 325 MG Tab PO PRN (12:34)
[2021-10-23] MEDS: Pramipexole 0.125 MG Tab PO SCH (20:35)
[2021-10-23] MEDS: Sertraline 100 MG Tab PO SCH (20:35)
[2021-10-23] MEDS: Gabapentin 100 MG Cap PO SCH (20:36)
[2021-10-23] MEDS: Melatonin 3 MG Tab PO SCH (20:36)
[2021-10-24] MEDS: Levothyroxine 112 MCG Tab PO SCH (06:15)
[2021-10-24] MEDS: Cyclobenzaprine 10 MG Tab PO PRN ×2 (06:15→21:14)
[2021-10-24] MEDS: oxyCODONE 5 MG Tab PO PRN ×4 (06:16→21:15)
[2021-10-24] MEDS: Omeprazole 20 MG Cap.CR PO SCH (06:16)
[2021-10-24 07:16] LABS: ANION GAP 7.9 mmol/L (5-15)
[2021-10-24] MEDS: Potassium Chloride 10 MEQ Tab.ER PO SCH (08:37)
[2021-10-24] MEDS: buPROPion 150 MG Tab.ER PO SCH (08:37)
[2021-10-24] MEDS: busPIRone 15 MG Tab PO SCH ×2 (08:37→21:16)
[2021-10-24] MEDS: Levothyroxine 25 MCG Tab PO SCH (08:37)
[2021-10-24] MEDS: Pregabalin 50 MG Cap PO SCH ×2 (08:37→21:14)
[2021-10-24] MEDS: Furosemide 20 MG Tab PO SCH (08:37)
[2021-10-24] MEDS: Enoxaparin 40 MG/0.4 ML Syringe SUBCUT SCH ×2 (08:38→21:13)
[2021-10-24] MEDS: VILANTEROL INH SCH (08:38)
[2021-10-24] MEDS: Polyethylene Glycol 3350 Powder 17 GM Packet PO SCH (08:38)
[2021-10-24] MEDS: UMECLIDINIUM INH SCH (08:38)
[2021-10-24] MEDS: FLUTICASONE FUROATE INH SCH (08:38)
[2021-10-24] MEDS: Pramipexole 0.125 MG Tab PO SCH (21:13)
[2021-10-24] MEDS: Sertraline 100 MG Tab PO SCH (21:16)
[2021-10-24] MEDS: Gabapentin 100 MG Cap PO SCH (21:16)
[2021-10-24] MEDS: Melatonin 3 MG Tab PO SCH (21:17)
[2021-10-25] MEDS: Omeprazole 20 MG Cap.CR PO SCH (06:13)
[2021-10-25] MEDS: oxyCODONE 5 MG Tab PO PRN ×3 (06:13→20:31)
[2021-10-25] MEDS: Cyclobenzaprine 10 MG Tab PO PRN ×2 (06:13→20:32)
[2021-10-25] MEDS: Levothyroxine 112 MCG Tab PO SCH (06:14)
[2021-10-25] MEDS: Furosemide 20 MG Tab PO SCH (09:43)
[2021-10-25] MEDS: Potassium Chloride 10 MEQ Tab.ER PO SCH (09:43)
[2021-10-25] MEDS: busPIRone 15 MG Tab PO SCH ×2 (09:43→20:32)
[2021-10-25] MEDS: buPROPion 150 MG Tab.ER PO SCH (09:43)
[2021-10-25] MEDS: Pregabalin 50 MG Cap PO SCH ×2 (09:44→20:34)
[2021-10-25] MEDS: Levothyroxine 25 MCG Tab PO SCH (09:44)
[2021-10-25] MEDS: Polyethylene Glycol 3350 Powder 17 GM Packet PO SCH (09:45)
[2021-10-25] MEDS: Enoxaparin 40 MG/0.4 ML Syringe SUBCUT SCH ×2 (09:45→20:34)
[2021-10-25] MEDS: UMECLIDINIUM INH SCH (09:46)
[2021-10-25] MEDS: VILANTEROL INH SCH (09:46)
[2021-10-25] MEDS: FLUTICASONE FUROATE INH SCH (09:46)
[2021-10-25] MEDS: Pramipexole 0.125 MG Tab PO SCH (20:32)
[2021-10-25] MEDS: Melatonin 3 MG Tab PO SCH (20:33)
[2021-10-25] MEDS: Gabapentin 100 MG Cap PO SCH (20:33)
[2021-10-25] MEDS: Sertraline 100 MG Tab PO SCH (20:33)
[2021-10-26] MEDS: oxyCODONE 5 MG Tab PO PRN ×3 (05:42→20:29)
[2021-10-26] MEDS: Cyclobenzaprine 10 MG Tab PO PRN ×2 (05:42→20:27)
[2021-10-26] MEDS: Omeprazole 20 MG Cap.CR PO SCH (06:09)
[2021-10-26] MEDS: Levothyroxine 112 MCG Tab PO SCH (06:09)
[2021-10-26] MEDS: buPROPion 150 MG Tab.ER PO SCH (08:16)
[2021-10-26] MEDS: Enoxaparin 40 MG/0.4 ML Syringe SUBCUT SCH ×2 (08:16→20:23)
[2021-10-26] MEDS: Levothyroxine 25 MCG Tab PO SCH (08:16)
[2021-10-26] MEDS: busPIRone 15 MG Tab PO SCH ×2 (08:16→20:22)
[2021-10-26] MEDS: Pregabalin 50 MG Cap PO SCH ×2 (08:16→20:23)
[2021-10-26] MEDS: Furosemide 20 MG Tab PO SCH (08:16)
[2021-10-26] MEDS: Potassium Chloride 10 MEQ Tab.ER PO SCH (08:17)
[2021-10-26] MEDS: Polyethylene Glycol 3350 Powder 17 GM Packet PO SCH (08:17)
[2021-10-26] MEDS: UMECLIDINIUM INH SCH (08:19)
[2021-10-26] MEDS: VILANTEROL INH SCH (08:19)
[2021-10-26] MEDS: FLUTICASONE FUROATE INH SCH (08:19)
[2021-10-26] MEDS ORDERED: Polyethylene Glycol 3350 Powder 17 GM Packet PO PRN (12:15)
[2021-10-26] MEDS: Sertraline 100 MG Tab PO SCH (20:16)
[2021-10-26] MEDS: Melatonin 3 MG Tab PO SCH (20:20)
[2021-10-26] MEDS: Pramipexole 0.125 MG Tab PO SCH (20:20)
[2021-10-26] MEDS: Gabapentin 100 MG Cap PO SCH (20:22)
[2021-10-27] MEDS: Omeprazole 20 MG Cap.CR PO SCH (06:03)
[2021-10-27] MEDS: Levothyroxine 112 MCG Tab PO SCH (06:03)
[2021-10-27] MEDS: oxyCODONE 5 MG Tab PO PRN ×3 (06:08→20:16)
[2021-10-27] MEDS: Enoxaparin 40 MG/0.4 ML Syringe SUBCUT SCH ×2 (08:27→20:19)
[2021-10-27] MEDS: Potassium Chloride 10 MEQ Tab.ER PO SCH (08:28)
[2021-10-27] MEDS: busPIRone 15 MG Tab PO SCH ×2 (08:29→20:19)
[2021-10-27] MEDS: buPROPion 150 MG Tab.ER PO SCH (08:29)
[2021-10-27] MEDS: Pregabalin 50 MG Cap PO SCH ×2 (08:29→20:18)
[2021-10-27] MEDS: Furosemide 20 MG Tab PO SCH (08:30)
[2021-10-27] MEDS: Levothyroxine 25 MCG Tab PO SCH (08:30)
[2021-10-27] MEDS: UMECLIDINIUM INH SCH (08:37)
[2021-10-27] MEDS: VILANTEROL INH SCH (08:37)
[2021-10-27] MEDS: FLUTICASONE FUROATE INH SCH (08:37)
[2021-10-27] MEDS: Cyclobenzaprine 10 MG Tab PO PRN (20:19)
[2021-10-27] MEDS: Pramipexole 0.125 MG Tab PO SCH (20:19)
[2021-10-27] MEDS: Gabapentin 100 MG Cap PO SCH (20:19)
[2021-10-27] MEDS: Sertraline 100 MG Tab PO SCH (20:20)
[2021-10-27] MEDS: Melatonin 3 MG Tab PO SCH (20:21)
[2021-10-28] MEDS: oxyCODONE 5 MG Tab PO PRN ×3 (05:57→21:05)
[2021-10-28] MEDS: Omeprazole 20 MG Cap.CR PO SCH (06:00)
[2021-10-28] MEDS: Levothyroxine 112 MCG Tab PO SCH (06:00)
[2021-10-28] MEDS: Furosemide 20 MG Tab PO SCH (08:33)
[2021-10-28] MEDS: buPROPion 150 MG Tab.ER PO SCH (08:33)
[2021-10-28] MEDS: Levothyroxine 25 MCG Tab PO SCH (08:34)
[2021-10-28] MEDS: Potassium Chloride 10 MEQ Tab.ER PO SCH (08:34)
[2021-10-28] MEDS: Pregabalin 50 MG Cap PO SCH ×2 (08:34→20:59)
[2021-10-28] MEDS: busPIRone 15 MG Tab PO SCH ×2 (08:34→21:01)
[2021-10-28] MEDS: Enoxaparin 40 MG/0.4 ML Syringe SUBCUT SCH ×2 (08:35→21:07)
[2021-10-28] MEDS: UMECLIDINIUM INH SCH (08:41)
[2021-10-28] MEDS: VILANTEROL INH SCH (08:41)
[2021-10-28] MEDS: FLUTICASONE FUROATE INH SCH (08:41)
[2021-10-28] MEDS: Cyclobenzaprine 10 MG Tab PO PRN ×2 (12:18→21:04)
[2021-10-28] MEDS: Pramipexole 0.125 MG Tab PO SCH (20:59)
[2021-10-28] MEDS: Gabapentin 100 MG Cap PO SCH (21:00)
[2021-10-28] MEDS: Sertraline 100 MG Tab PO SCH (21:00)
[2021-10-28] MEDS: Melatonin 3 MG Tab PO SCH (21:01)
[2021-10-29] MEDS: oxyCODONE 5 MG Tab PO PRN ×3 (04:05→20:29)
[2021-10-29] MEDS: Levothyroxine 112 MCG Tab PO SCH (06:26)
[2021-10-29] MEDS: Levothyroxine 25 MCG Tab PO SCH ×2 (06:28→08:16)
[2021-10-29] MEDS: Omeprazole 20 MG Cap.CR PO SCH (06:29)
[2021-10-29] MEDS: Enoxaparin 40 MG/0.4 ML Syringe SUBCUT SCH ×2 (08:06→20:24)
[2021-10-29] MEDS: Potassium Chloride 10 MEQ Tab.ER PO SCH (08:07)
[2021-10-29] MEDS: Cyclobenzaprine 10 MG Tab PO PRN ×2 (08:07→20:26)
[2021-10-29] MEDS: Pregabalin 50 MG Cap PO SCH ×2 (08:07→20:22)
[2021-10-29] MEDS: Furosemide 20 MG Tab PO SCH (08:08)
[2021-10-29] MEDS: busPIRone 15 MG Tab PO SCH ×2 (08:08→20:23)
[2021-10-29] MEDS: buPROPion 150 MG Tab.ER PO SCH (08:08)
[2021-10-29] MEDS: VILANTEROL INH SCH (08:11)
[2021-10-29] MEDS: UMECLIDINIUM INH SCH (08:11)
[2021-10-29] MEDS: FLUTICASONE FUROATE INH SCH (08:11)
[2021-10-29] MEDS: Sertraline 100 MG Tab PO SCH (20:21)
[2021-10-29] MEDS: Gabapentin 100 MG Cap PO SCH (20:21)
[2021-10-29] MEDS: Melatonin 3 MG Tab PO SCH (20:22)
[2021-10-29] MEDS: Pramipexole 0.125 MG Tab PO SCH (20:23)
[2021-10-30] MEDS: Levothyroxine 112 MCG Tab PO SCH (06:47)
[2021-10-30] MEDS: Levothyroxine 25 MCG Tab PO SCH ×2 (06:48→08:09)
[2021-10-30] MEDS: Omeprazole 20 MG Cap.CR PO SCH (06:49)
[2021-10-30] MEDS: Cyclobenzaprine 10 MG Tab PO PRN ×2 (07:52→20:12)
[2021-10-30] MEDS: Furosemide 20 MG Tab PO SCH (08:03)
[2021-10-30] MEDS: Pregabalin 50 MG Cap PO SCH ×2 (08:03→20:14)
[2021-10-30] MEDS: buPROPion 150 MG Tab.ER PO SCH (08:03)
[2021-10-30] MEDS: Enoxaparin 40 MG/0.4 ML Syringe SUBCUT SCH ×2 (08:04→20:05)
[2021-10-30] MEDS: oxyCODONE 5 MG Tab PO PRN ×2 (08:04→20:08)
[2021-10-30] MEDS: busPIRone 15 MG Tab PO SCH ×2 (08:04→20:13)
[2021-10-30] MEDS: Potassium Chloride 10 MEQ Tab.ER PO SCH (08:08)
[2021-10-30] MEDS: VILANTEROL INH SCH (08:09)
[2021-10-30] MEDS: UMECLIDINIUM INH SCH (08:09)
[2021-10-30] MEDS: FLUTICASONE FUROATE INH SCH (08:09)
[2021-10-30] MEDS: Sertraline 100 MG Tab PO SCH (20:06)
[2021-10-30] MEDS: Melatonin 3 MG Tab PO SCH (20:10)
[2021-10-30] MEDS: Pramipexole 0.125 MG Tab PO SCH (20:11)
[2021-10-30] MEDS: Gabapentin 100 MG Cap PO SCH (20:12)
[2021-10-31] MEDS: oxyCODONE 5 MG Tab PO PRN ×3 (01:02→20:01)
[2021-10-31] MEDS: Omeprazole 20 MG Cap.CR PO SCH (07:12)
[2021-10-31] MEDS: Levothyroxine 112 MCG Tab PO SCH (07:12)
[2021-10-31] MEDS: busPIRone 15 MG Tab PO SCH ×2 (08:05→20:00)
[2021-10-31] MEDS: Potassium Chloride 10 MEQ Tab.ER PO SCH (08:05)
[2021-10-31] MEDS: buPROPion 150 MG Tab.ER PO SCH (08:05)
[2021-10-31] MEDS: Pregabalin 50 MG Cap PO SCH ×2 (08:05→20:03)
[2021-10-31] MEDS: FLUTICASONE FUROATE INH SCH (08:07)
[2021-10-31] MEDS: UMECLIDINIUM INH SCH (08:07)
[2021-10-31] MEDS: VILANTEROL INH SCH (08:07)
[2021-10-31] MEDS: Levothyroxine 25 MCG Tab PO SCH (08:08)
[2021-10-31] MEDS: Furosemide 20 MG Tab PO SCH (08:08)
[2021-10-31] MEDS: Enoxaparin 40 MG/0.4 ML Syringe SUBCUT SCH ×2 (08:08→19:59)
[2021-10-31] MEDS: Sertraline 100 MG Tab PO SCH (19:59)
[2021-10-31] MEDS: Pramipexole 0.125 MG Tab PO SCH (20:01)
[2021-10-31] MEDS: Cyclobenzaprine 10 MG Tab PO PRN (20:02)
[2021-10-31] MEDS: Gabapentin 100 MG Cap PO SCH (20:02)
[2021-10-31] MEDS: Melatonin 3 MG Tab PO SCH (20:03)
[2021-11-01] MEDS: Levothyroxine 112 MCG Tab PO SCH (06:28)
[2021-11-01] MEDS: Omeprazole 20 MG Cap.CR PO SCH (06:29)
[2021-11-01] MEDS: Levothyroxine 25 MCG Tab PO SCH (06:29)
[2021-11-01] MEDS: oxyCODONE 5 MG Tab PO PRN ×2 (06:29→20:32)
[2021-11-01] MEDS: VILANTEROL INH SCH (08:00)
[2021-11-01] MEDS: FLUTICASONE FUROATE INH SCH (08:00)
[2021-11-01] MEDS: UMECLIDINIUM INH SCH (08:00)
[2021-11-01] MEDS: Enoxaparin 40 MG/0.4 ML Syringe SUBCUT SCH ×2 (08:01→20:29)
[2021-11-01] MEDS: buPROPion 150 MG Tab.ER PO SCH (08:01)
[2021-11-01] MEDS: busPIRone 15 MG Tab PO SCH ×2 (08:02→20:31)
[2021-11-01] MEDS: Potassium Chloride 10 MEQ Tab.ER PO SCH (08:02)
[2021-11-01] MEDS: Furosemide 20 MG Tab PO SCH (08:03)
[2021-11-01] MEDS: Pramipexole 0.125 MG Tab PO SCH (20:29)
[2021-11-01] MEDS: Melatonin 3 MG Tab PO SCH (20:31)
[2021-11-01] MEDS: Gabapentin 100 MG Cap PO SCH (20:32)
[2021-11-01] MEDS: Sertraline 100 MG Tab PO SCH (20:32)
[2021-11-01] MEDS: Cyclobenzaprine 10 MG Tab PO PRN (20:33)
[2021-11-01] MEDS: Nystatin Crm 30 GM Tube TOP SCH (20:35)
[2021-11-02] MEDS: Acetaminophen 325 MG Tab PO PRN (05:26)
[2021-11-02] MEDS: hydrOXYzine HCl 25 MG Tab PO PRN (05:26)
[2021-11-02] MEDS: Levothyroxine 25 MCG Tab PO SCH ×2 (05:27→06:07)
[2021-11-02] MEDS: Levothyroxine 112 MCG Tab PO SCH ×2 (05:27→06:07)
[2021-11-02] MEDS: Omeprazole 20 MG Cap.CR PO SCH ×2 (05:28→06:07)
[2021-11-02] MEDS: busPIRone 15 MG Tab PO SCH ×2 (08:59→20:32)
[2021-11-02] MEDS: Enoxaparin 40 MG/0.4 ML Syringe SUBCUT SCH ×2 (08:59→20:30)
[2021-11-02] MEDS: Furosemide 20 MG Tab PO SCH (09:00)
[2021-11-02] MEDS: buPROPion 150 MG Tab.ER PO SCH (09:00)
[2021-11-02] MEDS: Potassium Chloride 10 MEQ Tab.ER PO SCH (09:00)
[2021-11-02] MEDS: FLUTICASONE FUROATE INH SCH (09:01)
[2021-11-02] MEDS: UMECLIDINIUM INH SCH (09:01)
[2021-11-02] MEDS: VILANTEROL INH SCH (09:01)
[2021-11-02] MEDS: Nystatin Crm 30 GM Tube TOP SCH ×2 (09:03→20:37)
[2021-11-02] MEDS: oxyCODONE 5 MG Tab PO PRN ×2 (14:51→20:32)
[2021-11-02] MEDS: Gabapentin 100 MG Cap PO SCH (20:30)
[2021-11-02] MEDS: Sertraline 100 MG Tab PO SCH (20:30)
[2021-11-02] MEDS: Cyclobenzaprine 10 MG Tab PO PRN (20:31)
[2021-11-02] MEDS: Melatonin 3 MG Tab PO SCH (20:32)
[2021-11-02] MEDS: Pramipexole 0.125 MG Tab PO SCH (20:32)
[2021-11-03] MEDS: oxyCODONE 5 MG Tab PO PRN ×3 (06:35→21:21)
[2021-11-03] MEDS: Levothyroxine 112 MCG Tab PO SCH (06:36)
[2021-11-03] MEDS: Omeprazole 20 MG Cap.CR PO SCH (06:36)
[2021-11-03] MEDS: Levothyroxine 25 MCG Tab PO SCH (06:42)
[2021-11-03] MEDS: busPIRone 15 MG Tab PO SCH ×2 (09:30→21:18)
[2021-11-03] MEDS: Furosemide 20 MG Tab PO SCH (09:30)
[2021-11-03] MEDS: UMECLIDINIUM INH SCH (09:30)
[2021-11-03] MEDS: Potassium Chloride 10 MEQ Tab.ER PO SCH (09:30)
[2021-11-03] MEDS: FLUTICASONE FUROATE INH SCH (09:30)
[2021-11-03] MEDS: VILANTEROL INH SCH (09:30)
[2021-11-03] MEDS: buPROPion 150 MG Tab.ER PO SCH (09:31)
[2021-11-03] MEDS: Enoxaparin 40 MG/0.4 ML Syringe SUBCUT SCH ×2 (09:31→21:24)
[2021-11-03] MEDS: Nystatin Crm 30 GM Tube TOP SCH ×2 (09:32→21:30)
[2021-11-03] MEDS: Melatonin 3 MG Tab PO SCH (21:18)
[2021-11-03] MEDS: Gabapentin 100 MG Cap PO SCH (21:18)
[2021-11-03] MEDS: Pramipexole 0.125 MG Tab PO SCH (21:19)
[2021-11-03] MEDS: Sertraline 100 MG Tab PO SCH (21:19)
[2021-11-03] MEDS: Cyclobenzaprine 10 MG Tab PO PRN (21:20)
[2021-11-04] MEDS: Omeprazole 20 MG Cap.CR PO SCH (06:25)
[2021-11-04] MEDS: Levothyroxine 112 MCG Tab PO SCH (06:25)
[2021-11-04] MEDS: Levothyroxine 25 MCG Tab PO SCH (06:25)
[2021-11-04] MEDS: oxyCODONE 5 MG Tab PO PRN ×2 (06:29→20:07)
[2021-11-04] MEDS: Potassium Chloride 10 MEQ Tab.ER PO SCH (08:55)
[2021-11-04] MEDS: Furosemide 20 MG Tab PO SCH (08:55)
[2021-11-04] MEDS: buPROPion 150 MG Tab.ER PO SCH (08:55)
[2021-11-04] MEDS: busPIRone 15 MG Tab PO SCH ×2 (08:55→20:39)
[2021-11-04] MEDS: Enoxaparin 40 MG/0.4 ML Syringe SUBCUT SCH ×2 (08:56→20:38)
[2021-11-04] MEDS: Nystatin Crm 30 GM Tube TOP SCH ×2 (08:58→20:43)
[2021-11-04] MEDS: UMECLIDINIUM INH SCH (08:59)
[2021-11-04] MEDS: FLUTICASONE FUROATE INH SCH (08:59)
[2021-11-04] MEDS: VILANTEROL INH SCH (08:59)
[2021-11-04] MEDS: Cyclobenzaprine 10 MG Tab PO PRN ×2 (09:50→20:05)
[2021-11-04] MEDS: Pramipexole 0.125 MG Tab PO SCH (20:38)
[2021-11-04] MEDS: Sertraline 100 MG Tab PO SCH (20:40)
[2021-11-04] MEDS: Melatonin 3 MG Tab PO SCH (20:41)
[2021-11-04] MEDS: Gabapentin 100 MG Cap PO SCH (20:41)
[2021-11-05] MEDS: Levothyroxine 25 MCG Tab PO SCH (06:18)
[2021-11-05] MEDS: Levothyroxine 112 MCG Tab PO SCH (06:18)
[2021-11-05] MEDS: Omeprazole 20 MG Cap.CR PO SCH (06:18)
[2021-11-05] MEDS: oxyCODONE 5 MG Tab PO PRN ×2 (06:26→20:52)
[2021-11-05] MEDS: Cyclobenzaprine 10 MG Tab PO PRN ×2 (06:27→20:51)
[2021-11-05] MEDS: Enoxaparin 40 MG/0.4 ML Syringe SUBCUT SCH ×2 (08:52→20:10)
[2021-11-05] MEDS: Furosemide 20 MG Tab PO SCH (08:53)
[2021-11-05] MEDS: Potassium Chloride 10 MEQ Tab.ER PO SCH (08:53)
[2021-11-05] MEDS: busPIRone 15 MG Tab PO SCH ×2 (08:53→20:05)
[2021-11-05] MEDS: buPROPion 150 MG Tab.ER PO SCH (08:53)
[2021-11-05] MEDS: Formoterol/Mometasone 100-5 MCG 8.8 GM Inhaler IH SCH ×2 (08:54→20:03)
[2021-11-05] MEDS: Tiotropium Bromide 4 GM Inhalation Spray (2.5mcg/1 dose; 10 doses) INH SCH (08:55)
[2021-11-05] MEDS: Nystatin Crm 30 GM Tube TOP SCH ×2 (08:56→20:09)
[2021-11-05] MEDS: Sertraline 100 MG Tab PO SCH (20:08)
[2021-11-05] MEDS: Pramipexole 0.125 MG Tab PO SCH (20:09)
[2021-11-05] MEDS: Gabapentin 100 MG Cap PO SCH (20:09)
[2021-11-05] MEDS: Melatonin 3 MG Tab PO SCH (20:09)
[2021-11-06] MEDS: Levothyroxine 112 MCG Tab PO SCH (06:08)
[2021-11-06] MEDS: Omeprazole 20 MG Cap.CR PO SCH (06:08)
[2021-11-06] MEDS: Levothyroxine 25 MCG Tab PO SCH (06:08)
[2021-11-06] MEDS: Cyclobenzaprine 10 MG Tab PO PRN ×2 (06:13→20:33)
[2021-11-06] MEDS: oxyCODONE 5 MG Tab PO PRN ×3 (06:14→20:34)
[2021-11-06] MEDS: Enoxaparin 40 MG/0.4 ML Syringe SUBCUT SCH ×2 (08:06→20:00)
[2021-11-06] MEDS: Furosemide 20 MG Tab PO SCH (08:07)
[2021-11-06] MEDS: Potassium Chloride 10 MEQ Tab.ER PO SCH (08:07)
[2021-11-06] MEDS: buPROPion 150 MG Tab.ER PO SCH (08:07)
[2021-11-06] MEDS: busPIRone 15 MG Tab PO SCH ×2 (08:07→20:02)
[2021-11-06] MEDS: Formoterol/Mometasone 100-5 MCG 8.8 GM Inhaler IH SCH ×2 (08:24→20:00)
[2021-11-06] MEDS: Nystatin Crm 30 GM Tube TOP SCH ×2 (08:24→20:03)
[2021-11-06] MEDS: Tiotropium Bromide 4 GM Inhalation Spray (2.5mcg/1 dose; 10 doses) INH SCH (08:25)
[2021-11-06] MEDS: Gabapentin 100 MG Cap PO SCH (20:01)
[2021-11-06] MEDS: Melatonin 3 MG Tab PO SCH (20:01)
[2021-11-06] MEDS: Pramipexole 0.125 MG Tab PO SCH (20:01)
[2021-11-06] MEDS: Sertraline 100 MG Tab PO SCH (20:02)
[2021-11-07] MEDS: Levothyroxine 25 MCG Tab PO SCH (06:18)
[2021-11-07] MEDS: Omeprazole 20 MG Cap.CR PO SCH (06:18)
[2021-11-07] MEDS: Levothyroxine 112 MCG Tab PO SCH (06:18)
[2021-11-07] MEDS: oxyCODONE 5 MG Tab PO PRN ×3 (06:21→19:55)
[2021-11-07] MEDS: Cyclobenzaprine 10 MG Tab PO PRN ×2 (06:21→19:54)
[2021-11-07 07:29] LABS: ANION GAP 9.1 mmol/L (5-15)
[2021-11-07] MEDS: Enoxaparin 40 MG/0.4 ML Syringe SUBCUT SCH ×2 (08:25→21:23)
[2021-11-07] MEDS: Furosemide 20 MG Tab PO SCH (08:26)
[2021-11-07] MEDS: buPROPion 150 MG Tab.ER PO SCH (08:27)
[2021-11-07] MEDS: Potassium Chloride 10 MEQ Tab.ER PO SCH (08:27)
[2021-11-07] MEDS: busPIRone 15 MG Tab PO SCH ×2 (08:27→21:22)
[2021-11-07] MEDS: Formoterol/Mometasone 100-5 MCG 8.8 GM Inhaler IH SCH ×2 (08:29→21:25)
[2021-11-07] MEDS: Nystatin Crm 30 GM Tube TOP SCH ×2 (08:29→21:33)
[2021-11-07] MEDS: Tiotropium Bromide 4 GM Inhalation Spray (2.5mcg/1 dose; 10 doses) INH SCH (08:29)
[2021-11-07] MEDS: Polyethylene Glycol 3350 Powder 17 GM Packet PO SCH (20:00)
[2021-11-07] MEDS: Melatonin 3 MG Tab PO SCH (21:21)
[2021-11-07] MEDS: Gabapentin 100 MG Cap PO SCH (21:21)
[2021-11-07] MEDS: Sertraline 100 MG Tab PO SCH (21:22)
[2021-11-07] MEDS: Pramipexole 0.125 MG Tab PO SCH (21:23)
[2021-11-08] MEDS: oxyCODONE 5 MG Tab PO PRN ×3 (00:53→19:56)
[2021-11-08] MEDS: hydrOXYzine HCl 25 MG Tab PO PRN (00:55)
[2021-11-08] MEDS: Levothyroxine 25 MCG Tab PO SCH (06:08)
[2021-11-08] MEDS: Omeprazole 20 MG Cap.CR PO SCH (06:08)
[2021-11-08] MEDS: Levothyroxine 112 MCG Tab PO SCH (06:08)
[2021-11-08] MEDS: Cyclobenzaprine 10 MG Tab PO PRN ×2 (07:59→19:57)
[2021-11-08] MEDS: Enoxaparin 40 MG/0.4 ML Syringe SUBCUT SCH ×2 (08:01→20:56)
[2021-11-08] MEDS: busPIRone 15 MG Tab PO SCH ×2 (08:03→20:55)
[2021-11-08] MEDS: buPROPion 150 MG Tab.ER PO SCH (08:04)
[2021-11-08] MEDS: Furosemide 20 MG Tab PO SCH (08:04)
[2021-11-08] MEDS: Potassium Chloride 10 MEQ Tab.ER PO SCH (08:04)
[2021-11-08] MEDS: Formoterol/Mometasone 100-5 MCG 8.8 GM Inhaler IH SCH ×2 (08:05→20:51)
[2021-11-08] MEDS: Tiotropium Bromide 4 GM Inhalation Spray (2.5mcg/1 dose; 10 doses) INH SCH (08:05)
[2021-11-08] MEDS: Polyethylene Glycol 3350 Powder 17 GM Packet PO SCH (08:07)
[2021-11-08] MEDS: Nystatin Crm 30 GM Tube TOP SCH ×2 (10:39→20:52)
[2021-11-08] MEDS: Acetaminophen 325 MG Tab PO PRN (14:18)
[2021-11-08] MEDS: Pramipexole 0.125 MG Tab PO SCH (20:53)
[2021-11-08] MEDS: Gabapentin 100 MG Cap PO SCH (20:53)
[2021-11-08] MEDS: Sertraline 100 MG Tab PO SCH (20:54)
[2021-11-08] MEDS: Melatonin 3 MG Tab PO SCH (20:54)
[2021-11-09] MEDS: Levothyroxine 112 MCG Tab PO SCH (06:20)
[2021-11-09] MEDS: Levothyroxine 25 MCG Tab PO SCH (06:20)
[2021-11-09] MEDS: Omeprazole 20 MG Cap.CR PO SCH (06:21)
[2021-11-09] MEDS: oxyCODONE 5 MG Tab PO PRN ×3 (06:26→20:58)
[2021-11-09] MEDS: Cyclobenzaprine 10 MG Tab PO PRN ×3 (06:27→20:57)
[2021-11-09] MEDS: Formoterol/Mometasone 100-5 MCG 8.8 GM Inhaler IH SCH ×2 (08:11→20:20)
[2021-11-09] MEDS: busPIRone 15 MG Tab PO SCH ×2 (08:11→20:21)
[2021-11-09] MEDS: Furosemide 20 MG Tab PO SCH (08:11)
[2021-11-09] MEDS: buPROPion 150 MG Tab.ER PO SCH (08:11)
[2021-11-09] MEDS: Enoxaparin 40 MG/0.4 ML Syringe SUBCUT SCH ×2 (08:11→20:23)
[2021-11-09] MEDS: Potassium Chloride 10 MEQ Tab.ER PO SCH (08:11)
[2021-11-09] MEDS: Nystatin Crm 30 GM Tube TOP SCH ×2 (08:12→20:24)
[2021-11-09] MEDS: Tiotropium Bromide 4 GM Inhalation Spray (2.5mcg/1 dose; 10 doses) INH SCH (08:12)
[2021-11-09] MEDS: Polyethylene Glycol 3350 Powder 17 GM Packet PO SCH (08:20)
[2021-11-09] MEDS: Pramipexole 0.125 MG Tab PO SCH (20:21)
[2021-11-09] MEDS: Melatonin 3 MG Tab PO SCH (20:21)
[2021-11-09] MEDS: Gabapentin 100 MG Cap PO SCH (20:22)
[2021-11-09] MEDS: Sertraline 100 MG Tab PO SCH (20:22)
[2021-11-10] MEDS: Levothyroxine 112 MCG Tab PO SCH (06:20)
[2021-11-10] MEDS: Levothyroxine 25 MCG Tab PO SCH (06:20)
[2021-11-10] MEDS: Omeprazole 20 MG Cap.CR PO SCH (06:20)
[2021-11-10] MEDS: oxyCODONE 5 MG Tab PO PRN ×3 (06:22→20:18)
[2021-11-10] MEDS: Cyclobenzaprine 10 MG Tab PO PRN ×3 (06:23→22:29)
[2021-11-10] MEDS: Enoxaparin 40 MG/0.4 ML Syringe SUBCUT SCH ×2 (08:03→20:08)
[2021-11-10] MEDS: Polyethylene Glycol 3350 Powder 17 GM Packet PO SCH (08:03)
[2021-11-10] MEDS: Furosemide 20 MG Tab PO SCH (08:04)
[2021-11-10] MEDS: Potassium Chloride 10 MEQ Tab.ER PO SCH (08:04)
[2021-11-10] MEDS: buPROPion 150 MG Tab.ER PO SCH (08:04)
[2021-11-10] MEDS: busPIRone 15 MG Tab PO SCH ×2 (08:04→20:09)
[2021-11-10] MEDS: Formoterol/Mometasone 100-5 MCG 8.8 GM Inhaler IH SCH ×2 (08:07→20:18)
[2021-11-10] MEDS: Tiotropium Bromide 4 GM Inhalation Spray (2.5mcg/1 dose; 10 doses) INH SCH (08:08)
[2021-11-10] MEDS: Nystatin Crm 30 GM Tube TOP SCH ×2 (08:09→20:21)
[2021-11-10] MEDS: Pramipexole 0.125 MG Tab PO SCH (20:09)
[2021-11-10] MEDS: Sertraline 100 MG Tab PO SCH (20:09)
[2021-11-10] MEDS: Gabapentin 100 MG Cap PO SCH (20:09)
[2021-11-10] MEDS: Melatonin 3 MG Tab PO SCH (20:10)
[2021-11-11] MEDS: Levothyroxine 112 MCG Tab PO SCH (06:26)
[2021-11-11] MEDS: Levothyroxine 25 MCG Tab PO SCH (06:26)
[2021-11-11] MEDS: oxyCODONE 5 MG Tab PO PRN ×3 (06:26→20:18)
[2021-11-11] MEDS: Cyclobenzaprine 10 MG Tab PO PRN ×3 (06:31→22:35)
[2021-11-11] MEDS: Omeprazole 20 MG Cap.CR PO SCH (06:34)
[2021-11-11] MEDS: Polyethylene Glycol 3350 Powder 17 GM Packet PO SCH (08:07)
[2021-11-11] MEDS: Enoxaparin 40 MG/0.4 ML Syringe SUBCUT SCH ×2 (08:07→20:22)
[2021-11-11] MEDS: Potassium Chloride 10 MEQ Tab.ER PO SCH (08:08)
[2021-11-11] MEDS: Nystatin Crm 30 GM Tube TOP SCH ×2 (08:09→20:24)
[2021-11-11] MEDS: buPROPion 150 MG Tab.ER PO SCH (08:09)
[2021-11-11] MEDS: Furosemide 20 MG Tab PO SCH (08:09)
[2021-11-11] MEDS: busPIRone 15 MG Tab PO SCH ×2 (08:09→20:18)
[2021-11-11] MEDS: Tiotropium Bromide 4 GM Inhalation Spray (2.5mcg/1 dose; 10 doses) INH SCH (08:10)
[2021-11-11] MEDS: Formoterol/Mometasone 100-5 MCG 8.8 GM Inhaler IH SCH ×2 (08:11→20:25)
[2021-11-11] MEDS: Sertraline 100 MG Tab PO SCH (20:19)
[2021-11-11] MEDS: Pramipexole 0.125 MG Tab PO SCH (20:21)
[2021-11-11] MEDS: Melatonin 3 MG Tab PO SCH (20:23)
[2021-11-11] MEDS: Gabapentin 100 MG Cap PO SCH (20:26)
[2021-11-12] MEDS: oxyCODONE 5 MG Tab PO PRN ×3 (06:14→20:24)
[2021-11-12] MEDS: Levothyroxine 25 MCG Tab PO SCH (06:16)
[2021-11-12] MEDS: Levothyroxine 112 MCG Tab PO SCH (06:16)
[2021-11-12] MEDS: Omeprazole 20 MG Cap.CR PO SCH (06:17)
[2021-11-12] MEDS: Cyclobenzaprine 10 MG Tab PO PRN ×3 (06:35→23:10)
[2021-11-12] MEDS: Enoxaparin 40 MG/0.4 ML Syringe SUBCUT SCH ×2 (08:05→20:21)
[2021-11-12] MEDS: Polyethylene Glycol 3350 Powder 17 GM Packet PO SCH (08:06)
[2021-11-12] MEDS: Furosemide 20 MG Tab PO SCH (08:07)
[2021-11-12] MEDS: Potassium Chloride 10 MEQ Tab.ER PO SCH (08:07)
[2021-11-12] MEDS: buPROPion 150 MG Tab.ER PO SCH (08:07)
[2021-11-12] MEDS: busPIRone 15 MG Tab PO SCH ×2 (08:07→20:22)
[2021-11-12] MEDS: Formoterol/Mometasone 100-5 MCG 8.8 GM Inhaler IH SCH ×2 (08:08→20:30)
[2021-11-12] MEDS: Tiotropium Bromide 4 GM Inhalation Spray (2.5mcg/1 dose; 10 doses) INH SCH (08:08)
[2021-11-12] MEDS: Nystatin Crm 30 GM Tube TOP SCH ×2 (08:10→20:26)
[2021-11-12] MEDS: Sertraline 100 MG Tab PO SCH (20:22)
[2021-11-12] MEDS: Pramipexole 0.125 MG Tab PO SCH (20:23)
[2021-11-12] MEDS: Melatonin 3 MG Tab PO SCH (20:23)
[2021-11-12] MEDS: Gabapentin 100 MG Cap PO SCH (20:23)
[2021-11-13] MEDS: Levothyroxine 25 MCG Tab PO SCH (06:04)
[2021-11-13] MEDS: Levothyroxine 112 MCG Tab PO SCH (06:05)
[2021-11-13] MEDS: oxyCODONE 5 MG Tab PO PRN ×3 (06:05→20:08)
[2021-11-13] MEDS: Omeprazole 20 MG Cap.CR PO SCH (06:06)
[2021-11-13] MEDS: Cyclobenzaprine 10 MG Tab PO PRN ×3 (07:24→20:34)
[2021-11-13] MEDS: Formoterol/Mometasone 100-5 MCG 8.8 GM Inhaler IH SCH ×2 (08:04→20:13)
[2021-11-13] MEDS: Nystatin Crm 30 GM Tube TOP SCH ×2 (08:04→20:13)
[2021-11-13] MEDS: Enoxaparin 40 MG/0.4 ML Syringe SUBCUT SCH ×2 (08:05→20:07)
[2021-11-13] MEDS: Tiotropium Bromide 4 GM Inhalation Spray (2.5mcg/1 dose; 10 doses) INH SCH (08:05)
[2021-11-13] MEDS: Polyethylene Glycol 3350 Powder 17 GM Packet PO SCH (08:12)
[2021-11-13] MEDS: Potassium Chloride 10 MEQ Tab.ER PO SCH (08:13)
[2021-11-13] MEDS: buPROPion 150 MG Tab.ER PO SCH (08:13)
[2021-11-13] MEDS: Furosemide 20 MG Tab PO SCH (08:14)
[2021-11-13] MEDS: busPIRone 15 MG Tab PO SCH ×2 (08:14→20:07)
[2021-11-13] MEDS: Pramipexole 0.125 MG Tab PO SCH (20:07)
[2021-11-13] MEDS: Sertraline 100 MG Tab PO SCH (20:08)
[2021-11-13] MEDS: Melatonin 3 MG Tab PO SCH (20:08)
[2021-11-13] MEDS: Gabapentin 100 MG Cap PO SCH (20:09)
[2021-11-14] MEDS: Levothyroxine 25 MCG Tab PO SCH (06:27)
[2021-11-14] MEDS: Levothyroxine 112 MCG Tab PO SCH (06:27)
[2021-11-14] MEDS: Omeprazole 20 MG Cap.CR PO SCH (06:27)
[2021-11-14] MEDS: Cyclobenzaprine 10 MG Tab PO PRN (06:28)
[2021-11-14] MEDS: oxyCODONE 5 MG Tab PO PRN ×2 (06:28→13:24)
[2021-11-14 06:51] VITALS: BP 124/75; PULSE 86
[2021-11-14] MEDS: Polyethylene Glycol 3350 Powder 17 GM Packet PO SCH (08:09)
[2021-11-14] MEDS: Enoxaparin 40 MG/0.4 ML Syringe SUBCUT SCH (08:10)
[2021-11-14] MEDS: Tiotropium Bromide 4 GM Inhalation Spray (2.5mcg/1 dose; 10 doses) INH SCH (08:13)
[2021-11-14] MEDS: Nystatin Crm 30 GM Tube TOP SCH (08:13)
[2021-11-14] MEDS: buPROPion 150 MG Tab.ER PO SCH (08:14)
[2021-11-14] MEDS: Formoterol/Mometasone 100-5 MCG 8.8 GM Inhaler IH SCH (08:14)
[2021-11-14] MEDS: busPIRone 15 MG Tab PO SCH (08:15)
[2021-11-14] MEDS: Furosemide 20 MG Tab PO SCH (08:15)
[2021-11-14] MEDS: Potassium Chloride 10 MEQ Tab.ER PO SCH (08:15)
== END 2021-11-14 14:00 | disposition home health service (06) | DRG 560 ==
LOC: VM.MS 11:40
PROVIDERS: ADMIT Internal Medicine; ATTEND Internal Medicine
DX: S82.892S Other fracture of left lower leg, sequela (principal); I50.32 Chronic diastolic (congestive) heart failure; J96.11 Chronic respiratory failure with hypoxia; F10.20 Alcohol dependence, uncomplicated; J44.9 Chronic obstructive pulmonary disease, unspecified; I10 Essential (primary) hypertension; E03.9 Hypothyroidism, unspecified; F41.9 Anxiety disorder, unspecified; M81.0 Age-related osteoporosis without current pathological fracture; E78.5 Hyperlipidemia, unspecified; M79.7 Fibromyalgia; G47.33 Obstructive sleep apnea (adult) (pediatric); R73.03 Prediabetes; F25.1 Schizoaffective disorder, depressive type; R53.1 Weakness; K59.00 Constipation, unspecified; M79.2 Neuralgia and neuritis, unspecified; Z99.81 Dependence on supplemental oxygen; Z86.711 Personal history of pulmonary embolism; Z79.01 Long term (current) use of anticoagulants; Z79.899 Other long term (current) drug therapy
CPT/HCPCS: 36415; 73610-LT; 80048; 82947; 85025; 94640; 94667; 94668; 94760; 97110-GP; 97116-GP; 97161-GP; 97165-GO; 97530-GP; 97535-GO; A9270-GY; J1650; J7620-GY

== ENCOUNTER 2023-01-20 20:10 | Emergency (ER) | payer MEDICARE, MEDICAID ==
[2023-01-20 20:39] VITALS: PULSE 88
[2023-01-20 20:48] LABS: BASOPHILS PERCENT AUTO 0.1 % (0.2-1.2); EOSINOPHILS ABSOLUTE AUTO 0.2 x10^3/uL (0.0-0.5); EOSINOPHILS PERCENT AUTO 1.3 % (0.0-4.0); HEMATOCRIT 39.5 % (33.0-47.0); HEMOGLOBIN 12.8 g/dL (12.0-16.0); IMMATURE GRAN ABSOLUTE AUTO 0.02 x10^3/uL (0.00-0.07); LYMPHOCYTES ABSOLUTE AUTO 1.3 x10^3/uL (1.0-4.8); LYMPHOCYTES PERCENT AUTO 11.4 % (25.0-50.0); MEAN CORPUSCULAR HEMOGLOBIN 26.1 pg (26.0-32.0); MEAN CORPUSCULAR HGB CONC 32.4 g/dL (32.0-36.0); MEAN CORPUSCULAR VOLUME 80.6 fL (78.0-93.0); MONOCYTES ABSOLUTE AUTO 0.4 x10^3/uL (0.0-0.8); MONOCYTES PERCENT AUTO 3.7 % (2.0-11.0); NEUTROPHILS ABSOLUTE AUTO 9.6 x10^3/uL (1.8-7.7); NEUTROPHILS PERCENT AUTO 83.3 % (50.0-80.0); PLATELET COUNT,PLT 175 x10^3/uL (130-400); WHITE BLOOD CELL COUNT,WBC 11.5 x10^3/uL (4.0-10.0)
[2023-01-20 20:50] LABS: APPEARANCE,URINE CLEAR (CLEAR); BILIRUBIN,URINE NEGATIVE (NEGATIVE); COLOR,URINE LIGHT YELLOW (YELLOW); GLUCOSE,URINE NEGATIVE (NEGATIVE); KETONES,URINE NEGATIVE (NEGATIVE); LEUKOCYTE ESTERASE,URINE LARGE (NEGATIVE); NITRITE,URINE NEGATIVE (NEGATIVE); OCCULT BLOOD,URINE NEGATIVE (NEGATIVE); PROTEIN,URINE NEGATIVE (NEGATIVE); UROBILINOGEN,URINE 0.2 EU/dL (0.2)
[2023-01-20 20:55] LABS: AMPHETAMINES SCREEN, URINE NEGATIVE (NEGATIVE); BARBITURATE SCREEN,URINE NEGATIVE (NEGATIVE); BENZODIAZEPINES SCREEN,URINE NEGATIVE (NEGATIVE); BUPRENORPHINE SCREEN,URINE NEGATIVE (NEGATIVE); COCAINE METABOLITES,URINE NEGATIVE (NEGATIVE); METHADONE SCREEN, URINE NEGATIVE (NEGATIVE); METHAMPHETAMINE SCREEN, URINE NEGATIVE (NEGATIVE); OXYCODONE SCREEN,URINE NEGATIVE (NEGATIVE); PCP SCREEN,URINE NEGATIVE (NEGATIVE); THC SCREEN,URINE 50 NG/ML NEGATIVE (NEGATIVE)
[2023-01-20 20:59] LABS: RBC,URINE NOT SEEN /HPF (NOT SEEN); SQUAMOUS EPITHELIAL CELLS,UR RARE /HPF (NOT SEEN)
[2023-01-20 21:00] LABS: BACTERIA,URINE RARE /HPF (NOT SEEN); MUCUS,URINE NOT SEEN /LPF (NOT SEEN)
[2023-01-20 21:09] LABS: ALANINE AMINOTRANSFERASE,ALT 26 U/L (14-59); ALBUMIN 3.8 g/dL (3.4-5.0); ALKALINE PHOSPHATASE 148 U/L (46-116); ASPARTATE AMNIOTRANSFERASE,AST 17 U/L (15-37); BILIRUBIN TOTAL 0.2 mg/dL (0.2-1.0); BLOOD UREA NITROGEN,BUN 18 mg/dL (7-18); CALCIUM 9.1 mg/dL (8.5-10.1); CARBON DIOXIDE,CO2 27 mmol/L (21-32); CHLORIDE,CL 102 mmol/L (98-107); CREATININE 1.1 mg/dL (0.55-1.02); EST CRCL DRUG DOSING (CG) 51.57 mL/min; GLUCOSE RANDOM 139 mg/dL (70-99); POTASSIUM,K 3.7 mmol/L (3.5-5.1); SODIUM,NA 138 mmol/L (136-145)
[2023-01-20 21:13] LABS: ACETAMINOPHEN 0 ug/ml (10-30); ANION GAP 12.7 mmol/L (5-15); ESTIMATED GFR 57 mL/min (>=60); ETHANOL BLOOD MEDICAL < 3 mg/dL (0-3)
[2023-01-20] MEDS ORDERED: Take Home: Sulfamethoxazole/Trimethoprim 800-160 MG Tab, 6 Tab Pack PO ONE (21:46)
[2023-01-20 22:54] VITALS: BP 166/78
== END 2023-01-20 22:20 | disposition home or self-care (01) ==
LOC: VM.ED 20:10
DX: R44.1 Visual hallucinations (principal); E78.00 Pure hypercholesterolemia, unspecified; K21.9 Gastro-esophageal reflux disease without esophagitis; E03.9 Hypothyroidism, unspecified; I11.0 Hypertensive heart disease with heart failure; I50.9 Heart failure, unspecified; J44.9 Chronic obstructive pulmonary disease, unspecified; Z79.899 Other long term (current) drug therapy; Z88.8 Allergy status to other drugs, medicaments and biological substances
CPT/HCPCS: 36415; 80053; 80143; 80179; 80305; 80307; 81001; 85025; 87086; 87088; 87186; 99285; A9270

== ENCOUNTER 2023-02-27 12:48 | Inpatient (IN) | payer MEDICARE, MEDICAID ==
[2023-02-27] MEDS ORDERED: Sodium Chloride 0.9% 1,000 ML IV ONE (12:56)
[2023-02-27 13:30] LABS: BASOPHILS PERCENT AUTO 0.2 % (0.2-1.2); EOSINOPHILS PERCENT AUTO 0.3 % (0.0-4.0); HEMATOCRIT 37.2 % (33.0-47.0); IMMATURE GRAN ABSOLUTE AUTO 0.06 x10^3/uL (0.00-0.07); LYMPHOCYTES ABSOLUTE AUTO 1.2 x10^3/uL (1.0-4.8); LYMPHOCYTES PERCENT AUTO 8.1 % (25.0-50.0); MEAN CORPUSCULAR HEMOGLOBIN 25.9 pg (26.0-32.0); MEAN CORPUSCULAR HGB CONC 29.6 g/dL (32.0-36.0); MEAN CORPUSCULAR VOLUME 87.5 fL (78.0-93.0); MONOCYTES ABSOLUTE AUTO 0.8 x10^3/uL (0.0-0.8); MONOCYTES PERCENT AUTO 5.6 % (2.0-11.0); NEUTROPHILS ABSOLUTE AUTO 12.6 x10^3/uL (1.8-7.7); NEUTROPHILS PERCENT AUTO 85.4 % (50.0-80.0); PLATELET COUNT,PLT 212 x10^3/uL (130-400); RED BLOOD CELL COUNT 4.25 x10^6/uL (4.00-5.50); WHITE BLOOD CELL COUNT,WBC 14.8 x10^3/uL (4.0-10.0)
[2023-02-27 13:49] LABS: CORONAVIRUS COVID-19 NAA NEGATIVE (NEGATIVE); INFLUENZA A NAA NEGATIVE (NEGATIVE); INFLUENZA B NAA NEGATIVE (NEGATIVE)
[2023-02-27 13:52] LABS: A/G RATIO 0.97; ALANINE AMINOTRANSFERASE,ALT 680 U/L (14-59); ALBUMIN 3.3 g/dL (3.4-5.0); ALKALINE PHOSPHATASE 149 U/L (46-116); ANION GAP 9.8 mmol/L (5-15); ASPARTATE AMNIOTRANSFERASE,AST 1133 U/L (15-37); BILIRUBIN TOTAL 0.4 mg/dL (0.2-1.0); BLOOD UREA NITROGEN,BUN 16 mg/dL (7-18); CALCIUM 8.3 mg/dL (8.5-10.1); CARBON DIOXIDE,CO2 33 mmol/L (21-32); CHLORIDE,CL 95 mmol/L (98-107); CREATININE 1.6 mg/dL (0.55-1.02); ESTIMATED GFR 36 mL/min (>=60); GLUCOSE RANDOM 134 mg/dL (70-99); POTASSIUM,K 3.8 mmol/L (3.5-5.1); PRO B-TYPE NATRIUR PEPT,BNPPRO 4572 pg/mL (<=125); PROTEIN TOTAL,TP 6.7 g/dL (6.4-8.2); SODIUM,NA 134 mmol/L (136-145)
[2023-02-27] MEDS ORDERED: Azithromycin 500 MG in Sodium Chloride 0.9% 250 ML IV ONE (14:44)
[2023-02-27] MEDS ORDERED: cefTRIAXone 1 GM Vial IVPUSH ONE (14:44)
[2023-02-27] MEDS ORDERED: Furosemide 20 MG/2 ML VIAL IV ONE (15:17)
[2023-02-27] MEDS ORDERED: Sodium Chloride 0.9% 1,000 ML IV SCH (15:30)
[2023-02-27 16:02] LABS: APPEARANCE,URINE SLIGHTLY CLOUDY (CLEAR); BILIRUBIN,URINE NEGATIVE (NEGATIVE); COLOR,URINE YELLOW (YELLOW); GLUCOSE,URINE NEGATIVE (NEGATIVE); KETONES,URINE NEGATIVE (NEGATIVE); LEUKOCYTE ESTERASE,URINE TRACE (NEGATIVE); NITRITE,URINE NEGATIVE (NEGATIVE); OCCULT BLOOD,URINE TRACE-INTACT (NEGATIVE); PROTEIN,URINE 30 mg/dL (NEGATIVE); UROBILINOGEN,URINE 0.2 EU/dL (0.2)
[2023-02-27 16:10] LABS: BACTERIA,URINE OCCASIONAL /HPF (NOT SEEN); MUCUS,URINE OCCASIONAL /LPF (NOT SEEN); RBC,URINE 0-5 /HPF (NOT SEEN); SQUAMOUS EPITHELIAL CELLS,UR MODERATE /HPF (NOT SEEN)
[2023-02-27] MEDS ORDERED: Furosemide 20 MG Tab PO PRN (16:43)
[2023-02-27] MEDS ORDERED: Oxybutynin 5 MG Tab PO PRN (16:43)
[2023-02-27] MEDS ORDERED: Albuterol HFA 18 Gm Inhaler INH PRN (16:43)
[2023-02-27] MEDS ORDERED: Polyethylene Glycol 3350 Powder 17 GM Packet PO PRN (16:53)
[2023-02-27] MEDS ORDERED: Albuterol 0.083% 2.5 MG/3 ML Neb Soln NEB PRN (16:53)
[2023-02-27 17:33] LABS: MAGNESIUM 2.1 mg/dL (1.8-2.4)
[2023-02-27] MEDS: QUEtiapine 25 MG Tab PO SCH (20:10)
[2023-02-27] MEDS: Melatonin 3 MG Tab PO SCH (20:13)
[2023-02-27] MEDS: Sertraline 100 MG Tab PO SCH (20:14)
[2023-02-27] MEDS: OLANZapine 10 MG Tab PO SCH (20:15)
[2023-02-27] MEDS: Pramipexole 0.5 MG Tab PO SCH (20:15)
[2023-02-27] MEDS: Cyclobenzaprine 10 MG Tab PO PRN (22:06)
[2023-02-27] MEDS: Menthol 10%/Methyl Salicylate 15% 85 GM Tube TOP PRN (22:09)
[2023-02-28] MEDS: Levothyroxine 25 MCG Tab PO SCH (06:01)
[2023-02-28] MEDS: Levothyroxine 112 MCG Tab PO SCH (06:02)
[2023-02-28 06:48] LABS: BASOPHILS PERCENT AUTO 0.2 % (0.2-1.2); EOSINOPHILS ABSOLUTE AUTO 0.1 x10^3/uL (0.0-0.5); EOSINOPHILS PERCENT AUTO 0.6 % (0.0-4.0); HEMATOCRIT 35.9 % (33.0-47.0); HEMOGLOBIN 10.6 g/dL (12.0-16.0); IMMATURE GRAN ABSOLUTE AUTO 0.05 x10^3/uL (0.00-0.07); LYMPHOCYTES ABSOLUTE AUTO 1.1 x10^3/uL (1.0-4.8); MEAN CORPUSCULAR HEMOGLOBIN 26.2 pg (26.0-32.0); MEAN CORPUSCULAR HGB CONC 29.5 g/dL (32.0-36.0); MEAN CORPUSCULAR VOLUME 88.6 fL (78.0-93.0); MONOCYTES ABSOLUTE AUTO 0.7 x10^3/uL (0.0-0.8); NEUTROPHILS ABSOLUTE AUTO 11.3 x10^3/uL (1.8-7.7); NEUTROPHILS PERCENT AUTO 85.8 % (50.0-80.0); PLATELET COUNT,PLT 189 x10^3/uL (130-400); RED BLOOD CELL COUNT 4.05 x10^6/uL (4.00-5.50); WHITE BLOOD CELL COUNT,WBC 13.1 x10^3/uL (4.0-10.0)
[2023-02-28] MEDS ORDERED: Tiotropium Bromide 4 GM Inhalation Spray (2.5mcg/1 dose; 10 doses) INH SCH (07:00)
[2023-02-28] MEDS ORDERED: Formoterol/Mometasone 100-5 MCG 8.8 GM Inhaler IH SCH (07:00)
[2023-02-28 07:09] LABS: A/G RATIO 0.85; ALBUMIN 2.9 g/dL (3.4-5.0); BILIRUBIN TOTAL 0.3 mg/dL (0.2-1.0); CALCIUM 7.9 mg/dL (8.5-10.1); EST CRCL DRUG DOSING (CG) 58.09 mL/min; POTASSIUM,K 3.4 mmol/L (3.5-5.1); PROTEIN TOTAL,TP 6.3 g/dL (6.4-8.2)
[2023-02-28 07:14] LABS: ANION GAP 8.4 mmol/L (5-15)
[2023-02-28] MEDS: buPROPion 150 MG Tab.ER PO SCH (08:32)
[2023-02-28] MEDS: Cyanocobalamin (Vitamin B12) 250 MCG Tab PO SCH (08:33)
[2023-02-28] MEDS: Enoxaparin 40 MG/0.4 ML Syringe SUBCUT SCH (08:34)
[2023-02-28] MEDS: Omeprazole 20 MG Cap.CR PO SCH (08:34)
[2023-02-28] MEDS: OLANZapine 10 MG Tab PO SCH ×2 (08:34→20:08)
[2023-02-28] MEDS: Magnesium Oxide 400 MG Tab PO SCH (08:34)
[2023-02-28] MEDS: cefTRIAXone 1 GM Vial IVPUSH SCH (08:36)
[2023-02-28] MEDS: Azithromycin 500 MG in Sodium Chloride 0.9% 250 ML IV SCH (08:44)
[2023-02-28] MEDS ORDERED: MAGNESIUM GLUCONATE PO SCH (09:00)
[2023-02-28] MEDS ORDERED: Potassium Chloride 10 MEQ Tab.ER PO SCH (09:30)
[2023-02-28] MEDS: Ibuprofen 200 MG Tab PO PRN (10:17)
[2023-02-28 11:00] LABS: BASE EXCESS VENOUS 7 mmol/L ((-2)-3); BICARBONATE,VENOUS 32 mmol/L (22-29); O2 SATURATION VENOUS 96 %; PCO2 VENOUS 57 mmHG (41-51); PH,VENOUS 7.36 pH (7.32-7.43); PO2 VENOUS 90 mmHG
[2023-02-28] MEDS: Budesonide 0.5 MG/2 ML Neb Susp NEB SCH ×2 (11:05→20:05)
[2023-02-28] MEDS ORDERED: [UNRECOGNIZED DRUG - REMARK] SCH (14:15)
[2023-02-28] MEDS: VANCOmycin 2 GM/400 ML 2 GM in Premix Bag 1 BAG IV SCH (14:39)
[2023-02-28] MEDS: Albuterol/Ipratropium 3.0-0.5 MG/3 ML Neb Soln NEB SCH ×2 (14:59→23:10)
[2023-02-28 18:48] LABS: AMPHETAMINES SCREEN, URINE NEGATIVE (NEGATIVE); BARBITURATE SCREEN,URINE NEGATIVE (NEGATIVE)
[2023-02-28 18:49] LABS: BENZODIAZEPINES SCREEN,URINE NEGATIVE (NEGATIVE); BUPRENORPHINE SCREEN,URINE NEGATIVE (NEGATIVE); COCAINE METABOLITES,URINE NEGATIVE (NEGATIVE); METHADONE SCREEN, URINE NEGATIVE (NEGATIVE); METHAMPHETAMINE SCREEN, URINE NEGATIVE (NEGATIVE); OXYCODONE SCREEN,URINE NEGATIVE (NEGATIVE); PCP SCREEN,URINE NEGATIVE (NEGATIVE); THC SCREEN,URINE 50 NG/ML NEGATIVE (NEGATIVE)
[2023-02-28] MEDS: Sertraline 100 MG Tab PO SCH (20:07)
[2023-02-28] MEDS: Arformoterol 15 MCG/2 ML Neb Soln NEB SCH (20:07)
[2023-02-28] MEDS: Gabapentin 100 MG Cap PO SCH (20:08)
[2023-02-28] MEDS: Melatonin 3 MG Tab PO SCH (20:08)
[2023-02-28] MEDS: Potassium Chloride 20 MEQ Tab.ER PO SCH (20:09)
[2023-02-28] MEDS: Pramipexole 0.5 MG Tab PO SCH (20:10)
[2023-02-28] MEDS: QUEtiapine 25 MG Tab PO SCH (20:10)
[2023-03-01] MEDS: Budesonide 0.5 MG/2 ML Neb Susp NEB SCH ×2 (06:16→20:08)
[2023-03-01] MEDS: Albuterol/Ipratropium 3.0-0.5 MG/3 ML Neb Soln NEB SCH ×3 (06:16→22:07)
[2023-03-01] MEDS: Levothyroxine 25 MCG Tab PO SCH (06:17)
[2023-03-01] MEDS: Arformoterol 15 MCG/2 ML Neb Soln NEB SCH ×2 (06:17→20:08)
[2023-03-01] MEDS: Levothyroxine 112 MCG Tab PO SCH (06:17)
[2023-03-01 07:58] LABS: BASOPHILS PERCENT AUTO 0.1 % (0.2-1.2); EOSINOPHILS ABSOLUTE AUTO 0.1 x10^3/uL (0.0-0.5); EOSINOPHILS PERCENT AUTO 1.5 % (0.0-4.0); HEMATOCRIT 37.7 % (33.0-47.0); HEMOGLOBIN 10.7 g/dL (12.0-16.0); IMMATURE GRAN ABSOLUTE AUTO 0.02 x10^3/uL (0.00-0.07); LYMPHOCYTES ABSOLUTE AUTO 0.7 x10^3/uL (1.0-4.8); LYMPHOCYTES PERCENT AUTO 8.7 % (25.0-50.0); MEAN CORPUSCULAR HEMOGLOBIN 25.7 pg (26.0-32.0); MEAN CORPUSCULAR HGB CONC 28.4 g/dL (32.0-36.0); MEAN CORPUSCULAR VOLUME 90.4 fL (78.0-93.0); MONOCYTES ABSOLUTE AUTO 0.4 x10^3/uL (0.0-0.8); MONOCYTES PERCENT AUTO 4.8 % (2.0-11.0); NEUTROPHILS ABSOLUTE AUTO 7.2 x10^3/uL (1.8-7.7); NEUTROPHILS PERCENT AUTO 84.7 % (50.0-80.0); PLATELET COUNT,PLT 177 x10^3/uL (130-400); RED BLOOD CELL COUNT 4.17 x10^6/uL (4.00-5.50); WHITE BLOOD CELL COUNT,WBC 8.5 x10^3/uL (4.0-10.0)
[2023-03-01 08:11] LABS: A/G RATIO 0.7; ALBUMIN 2.8 g/dL (3.4-5.0); BILIRUBIN TOTAL 0.3 mg/dL (0.2-1.0); CALCIUM 8.2 mg/dL (8.5-10.1); CREATININE 0.8 mg/dL (0.55-1.02); EST CRCL DRUG DOSING (CG) 72.61 mL/min; POTASSIUM,K 4.1 mmol/L (3.5-5.1); PROTEIN TOTAL,TP 6.8 g/dL (6.4-8.2)
[2023-03-01 08:17] LABS: ANION GAP 7.1 mmol/L (5-15)
[2023-03-01 08:21] LABS: TSH ULTRASENSITIVE 7.963 uIU/mL (0.358-3.74); VANCOMYCIN RANDOM 11.3 ug/mL (5.0-10.0)
[2023-03-01] MEDS: Potassium Chloride 20 MEQ Tab.ER PO SCH ×3 (08:43→20:09)
[2023-03-01] MEDS: cefTRIAXone 1 GM Vial IVPUSH SCH (09:09)
[2023-03-01] MEDS: Azithromycin 500 MG in Sodium Chloride 0.9% 250 ML IV SCH (09:09)
[2023-03-01] MEDS: Magnesium Oxide 400 MG Tab PO SCH (09:21)
[2023-03-01] MEDS: Ibuprofen 200 MG Tab PO PRN (09:21)
[2023-03-01] MEDS: Enoxaparin 40 MG/0.4 ML Syringe SUBCUT SCH (09:21)
[2023-03-01] MEDS: Cyanocobalamin (Vitamin B12) 250 MCG Tab PO SCH (09:21)
[2023-03-01] MEDS: buPROPion 150 MG Tab.ER PO SCH (09:21)
[2023-03-01] MEDS: OLANZapine 10 MG Tab PO SCH ×2 (09:22→20:12)
[2023-03-01] MEDS: Omeprazole 20 MG Cap.CR PO SCH (09:22)
[2023-03-01] MEDS: Nicotine 14 MG/24 Hr Patch TRDERM SCH (09:55)
[2023-03-01] MEDS: VANCOmycin 2 GM/400 ML 2 GM in Premix Bag 1 BAG IV SCH (14:14)
[2023-03-01] MEDS: Cyclobenzaprine 10 MG Tab PO PRN (20:09)
[2023-03-01] MEDS: Sertraline 100 MG Tab PO SCH (20:09)
[2023-03-01] MEDS: QUEtiapine 25 MG Tab PO SCH (20:09)
[2023-03-01] MEDS: Pramipexole 0.5 MG Tab PO SCH (20:09)
[2023-03-01] MEDS: Gabapentin 100 MG Cap PO SCH (20:09)
[2023-03-01] MEDS: Melatonin 3 MG Tab PO SCH (20:10)
[2023-03-02] MEDS: Albuterol/Ipratropium 3.0-0.5 MG/3 ML Neb Soln NEB SCH ×3 (06:19→22:01)
[2023-03-02] MEDS: Budesonide 0.5 MG/2 ML Neb Susp NEB SCH ×2 (06:19→20:03)
[2023-03-02] MEDS: Levothyroxine 150 MCG Tab PO SCH (06:19)
[2023-03-02] MEDS: Arformoterol 15 MCG/2 ML Neb Soln NEB SCH ×2 (06:20→20:03)
[2023-03-02 06:24] LABS: BASOPHILS PERCENT AUTO 0.2 % (0.2-1.2); EOSINOPHILS ABSOLUTE AUTO 0.2 x10^3/uL (0.0-0.5); EOSINOPHILS PERCENT AUTO 2.8 % (0.0-4.0); HEMOGLOBIN 10.6 g/dL (12.0-16.0); IMMATURE GRAN ABSOLUTE AUTO 0.02 x10^3/uL (0.00-0.07); LYMPHOCYTES PERCENT AUTO 12.1 % (25.0-50.0); MEAN CORPUSCULAR HEMOGLOBIN 25.4 pg (26.0-32.0); MEAN CORPUSCULAR HGB CONC 27.2 g/dL (32.0-36.0); MEAN CORPUSCULAR VOLUME 93.3 fL (78.0-93.0); MONOCYTES ABSOLUTE AUTO 0.5 x10^3/uL (0.0-0.8); MONOCYTES PERCENT AUTO 6.2 % (2.0-11.0); NEUTROPHILS ABSOLUTE AUTO 6.4 x10^3/uL (1.8-7.7); NEUTROPHILS PERCENT AUTO 78.5 % (50.0-80.0); PLATELET COUNT,PLT 175 x10^3/uL (130-400); RED BLOOD CELL COUNT 4.18 x10^6/uL (4.00-5.50); WHITE BLOOD CELL COUNT,WBC 8.2 x10^3/uL (4.0-10.0)
[2023-03-02 06:54] LABS: A/G RATIO 0.69; ALBUMIN 2.7 g/dL (3.4-5.0); BILIRUBIN TOTAL 0.2 mg/dL (0.2-1.0); C-REACTIVE PROTEIN 4.04 mg/dL (<=0.50); CALCIUM 8.8 mg/dL (8.5-10.1); CREATININE 0.8 mg/dL (0.55-1.02); EST CRCL DRUG DOSING (CG) 72.61 mL/min; POTASSIUM,K 4.5 mmol/L (3.5-5.1); PROTEIN TOTAL,TP 6.6 g/dL (6.4-8.2)
[2023-03-02 06:55] LABS: ANION GAP 7.5 mmol/L (5-15)
[2023-03-02] MEDS: Furosemide 40 MG/4 ML VIAL IV SCH ×2 (08:52→14:19)
[2023-03-02] MEDS: cefTRIAXone 1 GM Vial IVPUSH SCH (08:53)
[2023-03-02] MEDS: Magnesium Oxide 400 MG Tab PO SCH (09:14)
[2023-03-02] MEDS: Potassium Chloride 20 MEQ Tab.ER PO SCH ×2 (09:14→20:07)
[2023-03-02] MEDS: OLANZapine 10 MG Tab PO SCH ×2 (09:14→20:08)
[2023-03-02] MEDS: Cyanocobalamin (Vitamin B12) 250 MCG Tab PO SCH (09:14)
[2023-03-02] MEDS: Nicotine 14 MG/24 Hr Patch TRDERM SCH (09:15)
[2023-03-02] MEDS: Omeprazole 20 MG Cap.CR PO SCH (09:15)
[2023-03-02] MEDS: Azithromycin 500 MG in Sodium Chloride 0.9% 250 ML IV SCH (09:15)
[2023-03-02] MEDS: buPROPion 150 MG Tab.ER PO SCH (09:15)
[2023-03-02] MEDS: Enoxaparin 40 MG/0.4 ML Syringe SUBCUT SCH (09:15)
[2023-03-02] MEDS: VANCOmycin 2 GM/400 ML 2 GM in Premix Bag 1 BAG IV SCH (14:19)
[2023-03-02] MEDS: Lactulose Soln 10 GM/15 ML 30 ML UD Cup PO SCH ×2 (15:46→20:07)
[2023-03-02] MEDS: Sertraline 100 MG Tab PO SCH (20:07)
[2023-03-02] MEDS: Melatonin 3 MG Tab PO SCH (20:07)
[2023-03-02] MEDS: Pramipexole 0.5 MG Tab PO SCH (20:08)
[2023-03-02] MEDS: QUEtiapine 25 MG Tab PO SCH (20:08)
[2023-03-02] MEDS: Cyclobenzaprine 10 MG Tab PO PRN (20:08)
[2023-03-03] MEDS: Budesonide 0.5 MG/2 ML Neb Susp NEB SCH ×2 (06:17→20:11)
[2023-03-03] MEDS: Albuterol/Ipratropium 3.0-0.5 MG/3 ML Neb Soln NEB SCH ×3 (06:18→22:00)
[2023-03-03] MEDS: Levothyroxine 150 MCG Tab PO SCH (06:18)
[2023-03-03] MEDS: Arformoterol 15 MCG/2 ML Neb Soln NEB SCH ×2 (06:18→20:11)
[2023-03-03 08:04] LABS: BASOPHILS PERCENT AUTO 0.2 % (0.2-1.2); EOSINOPHILS ABSOLUTE AUTO 0.3 x10^3/uL (0.0-0.5); EOSINOPHILS PERCENT AUTO 3.4 % (0.0-4.0); HEMATOCRIT 40.7 % (33.0-47.0); HEMOGLOBIN 11.4 g/dL (12.0-16.0); IMMATURE GRAN ABSOLUTE AUTO 0.01 x10^3/uL (0.00-0.07); LYMPHOCYTES ABSOLUTE AUTO 0.9 x10^3/uL (1.0-4.8); LYMPHOCYTES PERCENT AUTO 9.3 % (25.0-50.0); MEAN CORPUSCULAR HEMOGLOBIN 25.2 pg (26.0-32.0); MEAN CORPUSCULAR VOLUME 89.8 fL (78.0-93.0); MONOCYTES ABSOLUTE AUTO 0.5 x10^3/uL (0.0-0.8); MONOCYTES PERCENT AUTO 4.7 % (2.0-11.0); NEUTROPHILS ABSOLUTE AUTO 8.2 x10^3/uL (1.8-7.7); NEUTROPHILS PERCENT AUTO 82.3 % (50.0-80.0); PLATELET COUNT,PLT 167 x10^3/uL (130-400); RED BLOOD CELL COUNT 4.53 x10^6/uL (4.00-5.50)
[2023-03-03 08:26] LABS: A/G RATIO 0.74; ALBUMIN 2.8 g/dL (3.4-5.0); BILIRUBIN TOTAL 0.4 mg/dL (0.2-1.0); CALCIUM 8.5 mg/dL (8.5-10.1); CREATININE 0.8 mg/dL (0.55-1.02); EST CRCL DRUG DOSING (CG) 72.61 mL/min; POTASSIUM,K 4.4 mmol/L (3.5-5.1); PROTEIN TOTAL,TP 6.6 g/dL (6.4-8.2)
[2023-03-03 08:32] LABS: ANION GAP 6.4 mmol/L (5-15)
[2023-03-03] MEDS: Enoxaparin 40 MG/0.4 ML Syringe SUBCUT SCH (08:39)
[2023-03-03] MEDS: Nicotine 14 MG/24 Hr Patch TRDERM SCH (08:40)
[2023-03-03] MEDS: Lactulose Soln 10 GM/15 ML 30 ML UD Cup PO SCH ×4 (08:40→20:11)
[2023-03-03] MEDS: OLANZapine 10 MG Tab PO SCH ×2 (08:41→20:16)
[2023-03-03] MEDS: Cyanocobalamin (Vitamin B12) 250 MCG Tab PO SCH (08:41)
[2023-03-03] MEDS: Omeprazole 20 MG Cap.CR PO SCH (08:41)
[2023-03-03] MEDS: buPROPion 150 MG Tab.ER PO SCH (08:41)
[2023-03-03] MEDS: Magnesium Oxide 400 MG Tab PO SCH (08:42)
[2023-03-03] MEDS: Furosemide 40 MG/4 ML VIAL IV SCH ×2 (08:43→13:33)
[2023-03-03] MEDS ORDERED: Azithromycin 250 MG Tab PO SCH (09:00)
[2023-03-03 09:07] LABS: HBSAG SCREEN Negative (Negative); HCV AB Non Reactive (Non Reactive); HEP A AB, IGM Negative (Negative); HEP B CORE AB, IGM Negative (Negative)
[2023-03-03] MEDS: Cyclobenzaprine 10 MG Tab PO PRN ×2 (09:13→20:15)
[2023-03-03] MEDS: cefTRIAXone 1 GM Vial IVPUSH SCH (09:13)
[2023-03-03] MEDS: Acetaminophen 325 MG Tab PO PRN (09:16)
[2023-03-03] MEDS: VANCOmycin 2 GM/400 ML 2 GM in Premix Bag 1 BAG IV SCH (13:34)
[2023-03-03] MEDS: Pramipexole 0.5 MG Tab PO SCH (20:15)
[2023-03-03] MEDS: Sertraline 100 MG Tab PO SCH (20:15)
[2023-03-03] MEDS: Melatonin 3 MG Tab PO SCH (20:15)
[2023-03-03] MEDS: Potassium Chloride 20 MEQ Tab.ER PO SCH (20:15)
[2023-03-03] MEDS: QUEtiapine 25 MG Tab PO SCH (20:16)
[2023-03-04] MEDS: Levothyroxine 150 MCG Tab PO SCH (06:03)
[2023-03-04] MEDS: Budesonide 0.5 MG/2 ML Neb Susp NEB SCH ×2 (06:03→20:06)
[2023-03-04] MEDS: Arformoterol 15 MCG/2 ML Neb Soln NEB SCH ×2 (06:03→20:06)
[2023-03-04] MEDS: Albuterol/Ipratropium 3.0-0.5 MG/3 ML Neb Soln NEB SCH ×3 (06:03→22:10)
[2023-03-04 08:04] LABS: BASOPHILS PERCENT AUTO 0.2 % (0.2-1.2); EOSINOPHILS ABSOLUTE AUTO 0.2 x10^3/uL (0.0-0.5); EOSINOPHILS PERCENT AUTO 2.3 % (0.0-4.0); HEMATOCRIT 44.1 % (33.0-47.0); HEMOGLOBIN 12.5 g/dL (12.0-16.0); IMMATURE GRAN ABSOLUTE AUTO 0.03 x10^3/uL (0.00-0.07); LYMPHOCYTES ABSOLUTE AUTO 0.8 x10^3/uL (1.0-4.8); LYMPHOCYTES PERCENT AUTO 7.8 % (25.0-50.0); MEAN CORPUSCULAR HEMOGLOBIN 24.9 pg (26.0-32.0); MEAN CORPUSCULAR HGB CONC 28.3 g/dL (32.0-36.0); MEAN CORPUSCULAR VOLUME 87.7 fL (78.0-93.0); MONOCYTES ABSOLUTE AUTO 0.4 x10^3/uL (0.0-0.8); MONOCYTES PERCENT AUTO 4.1 % (2.0-11.0); NEUTROPHILS ABSOLUTE AUTO 8.9 x10^3/uL (1.8-7.7); NEUTROPHILS PERCENT AUTO 85.3 % (50.0-80.0); PLATELET COUNT,PLT 194 x10^3/uL (130-400); RED BLOOD CELL COUNT 5.03 x10^6/uL (4.00-5.50); WHITE BLOOD CELL COUNT,WBC 10.4 x10^3/uL (4.0-10.0)
[2023-03-04 08:26] LABS: A/G RATIO 0.75; BILIRUBIN TOTAL 0.4 mg/dL (0.2-1.0); CALCIUM 9.3 mg/dL (8.5-10.1); CREATININE 1.1 mg/dL (0.55-1.02); EST CRCL DRUG DOSING (CG) 52.81 mL/min; POTASSIUM,K 4.6 mmol/L (3.5-5.1)
[2023-03-04 08:30] LABS: ANION GAP 6.6 mmol/L (5-15)
[2023-03-04] MEDS: Nicotine 14 MG/24 Hr Patch TRDERM SCH (08:50)
[2023-03-04] MEDS: Lactulose Soln 10 GM/15 ML 30 ML UD Cup PO SCH ×3 (08:51→20:06)
[2023-03-04] MEDS: buPROPion 150 MG Tab.ER PO SCH (08:51)
[2023-03-04] MEDS: Enoxaparin 40 MG/0.4 ML Syringe SUBCUT SCH (08:51)
[2023-03-04] MEDS: Omeprazole 20 MG Cap.CR PO SCH (08:52)
[2023-03-04] MEDS: Potassium Chloride 20 MEQ Tab.ER PO SCH ×2 (08:52→20:07)
[2023-03-04] MEDS: Magnesium Oxide 400 MG Tab PO SCH (08:52)
[2023-03-04] MEDS: OLANZapine 10 MG Tab PO SCH ×2 (08:52→20:06)
[2023-03-04] MEDS: Cyanocobalamin (Vitamin B12) 250 MCG Tab PO SCH (08:52)
[2023-03-04] MEDS: Furosemide 40 MG/4 ML VIAL IV SCH ×2 (08:53→14:05)
[2023-03-04] MEDS: cefTRIAXone 1 GM Vial IVPUSH SCH (08:53)
[2023-03-04] MEDS: Cyclobenzaprine 10 MG Tab PO PRN ×2 (09:16→20:06)
[2023-03-04] MEDS: Acetaminophen 325 MG Tab PO PRN (09:18)
[2023-03-04] MEDS: VANCOmycin 2 GM/400 ML 2 GM in Premix Bag 1 BAG IV SCH (14:04)
[2023-03-04] MEDS: Menthol 10%/Methyl Salicylate 15% 85 GM Tube TOP PRN (14:57)
[2023-03-04] MEDS: Melatonin 3 MG Tab PO SCH (20:06)
[2023-03-04] MEDS: QUEtiapine 25 MG Tab PO SCH (20:07)
[2023-03-04] MEDS: Pramipexole 0.5 MG Tab PO SCH (20:07)
[2023-03-04] MEDS: Sertraline 100 MG Tab PO SCH (20:07)
[2023-03-05] MEDS: Levothyroxine 150 MCG Tab PO SCH (06:04)
[2023-03-05 06:05] VITALS: PULSE 77
[2023-03-05 07:11] LABS: BASOPHILS PERCENT AUTO 0.4 % (0.2-1.2); EOSINOPHILS ABSOLUTE AUTO 0.4 x10^3/uL (0.0-0.5); EOSINOPHILS PERCENT AUTO 4.1 % (0.0-4.0); HEMATOCRIT 41.3 % (33.0-47.0); HEMOGLOBIN 11.9 g/dL (12.0-16.0); IMMATURE GRAN ABSOLUTE AUTO 0.01 x10^3/uL (0.00-0.07); LYMPHOCYTES ABSOLUTE AUTO 0.9 x10^3/uL (1.0-4.8); LYMPHOCYTES PERCENT AUTO 10.8 % (25.0-50.0); MEAN CORPUSCULAR HEMOGLOBIN 25.3 pg (26.0-32.0); MEAN CORPUSCULAR VOLUME 87.7 fL (78.0-93.0); MONOCYTES ABSOLUTE AUTO 0.3 x10^3/uL (0.0-0.8); NEUTROPHILS ABSOLUTE AUTO 6.9 x10^3/uL (1.8-7.7); NEUTROPHILS PERCENT AUTO 80.6 % (50.0-80.0); PLATELET COUNT,PLT 193 x10^3/uL (130-400); RED BLOOD CELL COUNT 4.71 x10^6/uL (4.00-5.50); WHITE BLOOD CELL COUNT,WBC 8.5 x10^3/uL (4.0-10.0)
[2023-03-05] MEDS: Albuterol/Ipratropium 3.0-0.5 MG/3 ML Neb Soln NEB SCH (07:19)
[2023-03-05] MEDS: Budesonide 0.5 MG/2 ML Neb Susp NEB SCH (07:19)
[2023-03-05] MEDS: Arformoterol 15 MCG/2 ML Neb Soln NEB SCH (07:25)
[2023-03-05 07:31] LABS: A/G RATIO 0.73; ALBUMIN 2.9 g/dL (3.4-5.0); ANION GAP 7.2 mmol/L (5-15); BILIRUBIN TOTAL 0.4 mg/dL (0.2-1.0); C-REACTIVE PROTEIN 4.37 mg/dL (<=0.50); CALCIUM 9.2 mg/dL (8.5-10.1); EST CRCL DRUG DOSING (CG) 58.32 mL/min; POTASSIUM,K 4.2 mmol/L (3.5-5.1); PROTEIN TOTAL,TP 6.9 g/dL (6.4-8.2)
[2023-03-05 07:36] LABS: MEAN CORPUSCULAR HGB CONC 28.8 g/dL (32.0-36.0)
[2023-03-05] MEDS: Nicotine 14 MG/24 Hr Patch TRDERM SCH (08:04)
[2023-03-05] MEDS: Furosemide 40 MG/4 ML VIAL IV SCH (08:05)
[2023-03-05] MEDS: cefTRIAXone 1 GM Vial IVPUSH SCH (08:07)
[2023-03-05] MEDS: Potassium Chloride 20 MEQ Tab.ER PO SCH (08:08)
[2023-03-05] MEDS: Omeprazole 20 MG Cap.CR PO SCH (08:08)
[2023-03-05] MEDS: buPROPion 150 MG Tab.ER PO SCH (08:09)
[2023-03-05] MEDS: Cyanocobalamin (Vitamin B12) 250 MCG Tab PO SCH (08:09)
[2023-03-05] MEDS: OLANZapine 10 MG Tab PO SCH (08:09)
[2023-03-05] MEDS: Magnesium Oxide 400 MG Tab PO SCH (08:11)
[2023-03-05] MEDS: Lactulose Soln 10 GM/15 ML 30 ML UD Cup PO SCH (08:11)
[2023-03-05] MEDS: Enoxaparin 40 MG/0.4 ML Syringe SUBCUT SCH (08:12)
[2023-03-05] MEDS ORDERED: Torsemide 20 MG Tab PO SCH (09:00)
[2023-03-05 10:46] VITALS: BP 138/60
[2023-03-05] MEDS ORDERED: Pregabalin 25 MG Cap PO SCH (21:00)
== END 2023-03-05 11:44 | disposition swing bed (61) | DRG 177 ==
LOC: VM.ED 12:48 → VM.MS 14:46
PROVIDERS: ADMIT Family Medicine; ATTEND Internal Medicine
DX: J15.211 Pneumonia due to Methicillin susceptible Staphylococcus aureus (principal); I50.33 Acute on chronic diastolic (congestive) heart failure; J96.21 Acute and chronic respiratory failure with hypoxia; B17.9 Acute viral hepatitis, unspecified; J44.1 Chronic obstructive pulmonary disease with (acute) exacerbation; N17.9 Acute kidney failure, unspecified; J44.0 Chronic obstructive pulmonary disease with (acute) lower respiratory infection; K76.82 Hepatic encephalopathy; F25.9 Schizoaffective disorder, unspecified; J18.9 Pneumonia, unspecified organism; S92.402A Displaced unspecified fracture of left great toe, initial encounter for closed fracture; S92.041A Displaced other fracture of tuberosity of right calcaneus, initial encounter for closed fracture; W19.XXXA Unspecified fall, initial encounter; Z11.52 Encounter for screening for COVID-19; G47.33 Obstructive sleep apnea (adult) (pediatric); E78.5 Hyperlipidemia, unspecified; F41.9 Anxiety disorder, unspecified; B96.20 Unspecified Escherichia coli [E. coli] as the cause of diseases classified elsewhere; G62.9 Polyneuropathy, unspecified; J44.9 Chronic obstructive pulmonary disease, unspecified; I11.0 Hypertensive heart disease with heart failure; E86.0 Dehydration; I50.9 Heart failure, unspecified; G47.00 Insomnia, unspecified; G43.909 Migraine, unspecified, not intractable, without status migrainosus; M81.0 Age-related osteoporosis without current pathological fracture; Z90.49 Acquired absence of other specified parts of digestive tract; Z98.51 Tubal ligation status; E03.9 Hypothyroidism, unspecified; E78.00 Pure hypercholesterolemia, unspecified; Z98.890 Other specified postprocedural states; K21.9 Gastro-esophageal reflux disease without esophagitis; Z88.8 Allergy status to other drugs, medicaments and biological substances; F25.1 Schizoaffective disorder, depressive type; M79.7 Fibromyalgia; F17.210 Nicotine dependence, cigarettes, uncomplicated; Z99.81 Dependence on supplemental oxygen; Z79.899 Other long term (current) drug therapy; Z86.711 Personal history of pulmonary embolism
CPT/HCPCS: 0240U; 36415; 71045; 71046; 73660-LT; 73660-RT; 80053; 80074; 80143; 80202; 80305-QW; 81001; 82140; 82550; 82803; 82977; 83605; 83690; 83735; 83880; 84145; 84443; 84484; 85025; 86140; 87040; 87070; 87077; 87086; 87088; 87186; 87205; 93005; 93010; 94640; 94660; 94760; 96361; 96374; 97162-GP; 97530-GP; 99232; 99284; 99285-25; A9270-GY; J0456; J0696; J1650; J1940; J3370; J3490; J7030; J7050; J7620-GY

== ENCOUNTER 2023-03-05 09:12 | Inpatient (IN) | payer MEDICARE, MEDICAID ==
[2023-03-05] MEDS ORDERED: Menthol 10%/Methyl Salicylate 15% 85 GM Tube TOP PRN (11:20)
[2023-03-05] MEDS ORDERED: Oxybutynin 5 MG Tab PO PRN (11:20)
[2023-03-05] MEDS ORDERED: Polyethylene Glycol 3350 Powder 17 GM Packet PO PRN (11:20)
[2023-03-05] MEDS ORDERED: Albuterol HFA 18 Gm Inhaler INH PRN (11:20)
[2023-03-05] MEDS ORDERED: Albuterol 0.083% 2.5 MG/3 ML Neb Soln NEB PRN (11:20)
[2023-03-05] MEDS: Lactulose Soln 10 GM/15 ML 30 ML UD Cup PO SCH ×2 (12:43→20:03)
[2023-03-05] MEDS: Torsemide 20 MG Tab PO SCH (13:42)
[2023-03-05] MEDS: Albuterol/Ipratropium 3.0-0.5 MG/3 ML Neb Soln NEB SCH ×2 (14:47→22:31)
[2023-03-05] MEDS: valACYclovir 1,000 MG Tab PO SCH ×2 (17:53→20:02)
[2023-03-05] MEDS: QUEtiapine 25 MG Tab PO SCH (20:02)
[2023-03-05] MEDS: Cyclobenzaprine 10 MG Tab PO PRN (20:02)
[2023-03-05] MEDS: Sertraline 100 MG Tab PO SCH (20:02)
[2023-03-05] MEDS: Pramipexole 0.5 MG Tab PO SCH (20:02)
[2023-03-05] MEDS: Pregabalin 25 MG Cap PO SCH (20:02)
[2023-03-05] MEDS: OLANZapine 10 MG Tab PO SCH (20:03)
[2023-03-05] MEDS: Budesonide 0.5 MG/2 ML Neb Susp NEB SCH (20:03)
[2023-03-05] MEDS: Melatonin 3 MG Tab PO SCH (20:03)
[2023-03-05] MEDS: Arformoterol 15 MCG/2 ML Neb Soln NEB SCH (20:03)
[2023-03-05] MEDS ORDERED: Potassium Chloride 20 MEQ Tab.ER PO SCH (21:00)
[2023-03-06] MEDS: Omeprazole 20 MG Cap.CR PO SCH (06:14)
[2023-03-06] MEDS: Budesonide 0.5 MG/2 ML Neb Susp NEB SCH ×2 (06:58→20:19)
[2023-03-06] MEDS: Albuterol/Ipratropium 3.0-0.5 MG/3 ML Neb Soln NEB SCH ×3 (06:58→22:52)
[2023-03-06] MEDS: Arformoterol 15 MCG/2 ML Neb Soln NEB SCH ×2 (06:58→20:19)
[2023-03-06] MEDS ORDERED: Levothyroxine 150 MCG Tab PO SCH (07:00)
[2023-03-06] MEDS: Nicotine 14 MG/24 Hr Patch TRDERM SCH (08:31)
[2023-03-06] MEDS: buPROPion 150 MG Tab.ER PO SCH (08:33)
[2023-03-06] MEDS: valACYclovir 1,000 MG Tab PO SCH ×3 (08:34→20:20)
[2023-03-06] MEDS: Potassium Chloride 20 MEQ Tab.ER PO SCH (08:34)
[2023-03-06] MEDS: Torsemide 20 MG Tab PO SCH ×2 (08:34→14:10)
[2023-03-06] MEDS: Cyanocobalamin (Vitamin B12) 250 MCG Tab PO SCH (08:35)
[2023-03-06] MEDS: Magnesium Oxide 400 MG Tab PO SCH (08:35)
[2023-03-06] MEDS: OLANZapine 10 MG Tab PO SCH ×2 (08:36→20:20)
[2023-03-06] MEDS: Enoxaparin 40 MG/0.4 ML Syringe SUBCUT SCH (08:37)
[2023-03-06] MEDS: Lactulose Soln 10 GM/15 ML 30 ML UD Cup PO SCH ×3 (08:38→20:19)
[2023-03-06] MEDS: Melatonin 3 MG Tab PO SCH (20:20)
[2023-03-06] MEDS: QUEtiapine 25 MG Tab PO SCH (20:20)
[2023-03-06] MEDS: Sertraline 100 MG Tab PO SCH (20:20)
[2023-03-06] MEDS: Pramipexole 0.5 MG Tab PO SCH (20:21)
[2023-03-06] MEDS: Cyclobenzaprine 10 MG Tab PO PRN (20:21)
[2023-03-06] MEDS: Pregabalin 25 MG Cap PO SCH (20:22)
[2023-03-07] MEDS: Omeprazole 20 MG Cap.CR PO SCH (06:12)
[2023-03-07 06:57] LABS: BASOPHILS PERCENT AUTO 0.3 % (0.2-1.2); EOSINOPHILS ABSOLUTE AUTO 0.3 x10^3/uL (0.0-0.5); EOSINOPHILS PERCENT AUTO 3.3 % (0.0-4.0); HEMATOCRIT 40.8 % (33.0-47.0); HEMOGLOBIN 11.8 g/dL (12.0-16.0); IMMATURE GRAN ABSOLUTE AUTO 0.01 x10^3/uL (0.00-0.07); LYMPHOCYTES PERCENT AUTO 10.9 % (25.0-50.0); MEAN CORPUSCULAR HEMOGLOBIN 25.1 pg (26.0-32.0); MEAN CORPUSCULAR HGB CONC 28.9 g/dL (32.0-36.0); MEAN CORPUSCULAR VOLUME 86.8 fL (78.0-93.0); MONOCYTES ABSOLUTE AUTO 0.4 x10^3/uL (0.0-0.8); MONOCYTES PERCENT AUTO 4.3 % (2.0-11.0); NEUTROPHILS ABSOLUTE AUTO 7.1 x10^3/uL (1.8-7.7); NEUTROPHILS PERCENT AUTO 81.1 % (50.0-80.0); PLATELET COUNT,PLT 181 x10^3/uL (130-400); WHITE BLOOD CELL COUNT,WBC 8.8 x10^3/uL (4.0-10.0)
[2023-03-07] MEDS: Albuterol/Ipratropium 3.0-0.5 MG/3 ML Neb Soln NEB SCH (07:02)
[2023-03-07] MEDS: Budesonide 0.5 MG/2 ML Neb Susp NEB SCH (07:02)
[2023-03-07] MEDS: Arformoterol 15 MCG/2 ML Neb Soln NEB SCH (07:03)
[2023-03-07 07:13] LABS: A/G RATIO 0.76; ALBUMIN 3.1 g/dL (3.4-5.0); BILIRUBIN TOTAL 0.3 mg/dL (0.2-1.0); CALCIUM 8.8 mg/dL (8.5-10.1); EST CRCL DRUG DOSING (CG) 58.09 mL/min; POTASSIUM,K 3.9 mmol/L (3.5-5.1); PROTEIN TOTAL,TP 7.2 g/dL (6.4-8.2)
[2023-03-07 07:15] LABS: ANION GAP 9.9 mmol/L (5-15)
[2023-03-07] MEDS: Magnesium Oxide 400 MG Tab PO SCH (08:34)
[2023-03-07] MEDS: valACYclovir 1,000 MG Tab PO SCH ×3 (08:34→20:26)
[2023-03-07] MEDS: Potassium Chloride 20 MEQ Tab.ER PO SCH (08:35)
[2023-03-07] MEDS: Cyanocobalamin (Vitamin B12) 250 MCG Tab PO SCH (08:35)
[2023-03-07] MEDS: buPROPion 150 MG Tab.ER PO SCH (08:36)
[2023-03-07] MEDS: Torsemide 20 MG Tab PO SCH ×2 (08:36→13:30)
[2023-03-07] MEDS: Nicotine 14 MG/24 Hr Patch TRDERM SCH (08:37)
[2023-03-07] MEDS: OLANZapine 10 MG Tab PO SCH ×2 (08:37→20:28)
[2023-03-07] MEDS: Enoxaparin 40 MG/0.4 ML Syringe SUBCUT SCH (08:39)
[2023-03-07] MEDS: Lactulose Soln 10 GM/15 ML 30 ML UD Cup PO SCH ×3 (08:39→20:24)
[2023-03-07] MEDS: Tiotropium Bromide 4 GM Inhalation Spray (2.5mcg/1 dose; 10 doses) INH SCH (10:39)
[2023-03-07] MEDS: Pramipexole 0.5 MG Tab PO SCH (20:26)
[2023-03-07] MEDS: Melatonin 3 MG Tab PO SCH (20:27)
[2023-03-07] MEDS: Pregabalin 25 MG Cap PO SCH (20:28)
[2023-03-07] MEDS: Sertraline 100 MG Tab PO SCH (20:28)
[2023-03-07] MEDS: QUEtiapine 25 MG Tab PO SCH (20:28)
[2023-03-07] MEDS: Formoterol/Mometasone 200-5 MCG 13 GM Inhaler INH SCH (20:37)
[2023-03-08] MEDS: Omeprazole 20 MG Cap.CR PO SCH (06:24)
[2023-03-08] MEDS: Formoterol/Mometasone 200-5 MCG 13 GM Inhaler INH SCH ×2 (06:25→20:36)
[2023-03-08] MEDS: Cyclobenzaprine 10 MG Tab PO PRN (06:29)
[2023-03-08] MEDS ORDERED: LORazepam 0.5 MG Tab PO PRN (08:45)
[2023-03-08] MEDS: Nicotine 14 MG/24 Hr Patch TRDERM SCH (09:28)
[2023-03-08] MEDS: Potassium Chloride 20 MEQ Tab.ER PO SCH (09:30)
[2023-03-08] MEDS: Enoxaparin 40 MG/0.4 ML Syringe SUBCUT SCH (09:30)
[2023-03-08] MEDS: Magnesium Oxide 400 MG Tab PO SCH (09:30)
[2023-03-08] MEDS: Torsemide 20 MG Tab PO SCH ×2 (09:30→13:53)
[2023-03-08] MEDS: OLANZapine 10 MG Tab PO SCH ×3 (09:30→20:33)
[2023-03-08] MEDS: buPROPion 150 MG Tab.ER PO SCH (09:30)
[2023-03-08] MEDS: Cyanocobalamin (Vitamin B12) 250 MCG Tab PO SCH (09:31)
[2023-03-08] MEDS: valACYclovir 1,000 MG Tab PO SCH ×3 (09:33→20:31)
[2023-03-08] MEDS: Lactulose Soln 10 GM/15 ML 30 ML UD Cup PO SCH ×3 (09:33→20:32)
[2023-03-08] MEDS: Tiotropium Bromide 4 GM Inhalation Spray (2.5mcg/1 dose; 10 doses) INH SCH (09:36)
[2023-03-08] MEDS: Sertraline 100 MG Tab PO SCH (20:30)
[2023-03-08] MEDS: QUEtiapine 25 MG Tab PO SCH (20:31)
[2023-03-08] MEDS: Melatonin 3 MG Tab PO SCH (20:31)
[2023-03-08] MEDS: Pramipexole 0.5 MG Tab PO SCH (20:31)
[2023-03-08] MEDS: Pregabalin 25 MG Cap PO SCH (20:33)
[2023-03-09] MEDS: Cyclobenzaprine 10 MG Tab PO PRN ×2 (06:04→20:25)
[2023-03-09] MEDS: Omeprazole 20 MG Cap.CR PO SCH (06:04)
[2023-03-09] MEDS: Formoterol/Mometasone 200-5 MCG 13 GM Inhaler INH SCH ×2 (06:09→20:21)
[2023-03-09 06:56] LABS: BASOPHILS PERCENT AUTO 0.2 % (0.2-1.2); EOSINOPHILS ABSOLUTE AUTO 0.2 x10^3/uL (0.0-0.5); HEMATOCRIT 42.2 % (33.0-47.0); HEMOGLOBIN 12.3 g/dL (12.0-16.0); IMMATURE GRAN ABSOLUTE AUTO 0.02 x10^3/uL (0.00-0.07); LYMPHOCYTES ABSOLUTE AUTO 1.1 x10^3/uL (1.0-4.8); LYMPHOCYTES PERCENT AUTO 9.8 % (25.0-50.0); MEAN CORPUSCULAR HEMOGLOBIN 25.2 pg (26.0-32.0); MEAN CORPUSCULAR HGB CONC 29.1 g/dL (32.0-36.0); MEAN CORPUSCULAR VOLUME 86.5 fL (78.0-93.0); MONOCYTES ABSOLUTE AUTO 0.4 x10^3/uL (0.0-0.8); MONOCYTES PERCENT AUTO 3.9 % (2.0-11.0); NEUTROPHILS PERCENT AUTO 83.9 % (50.0-80.0); PLATELET COUNT,PLT 215 x10^3/uL (130-400); RED BLOOD CELL COUNT 4.88 x10^6/uL (4.00-5.50)
[2023-03-09] MEDS: Menthol 10%/Methyl Salicylate 15% 85 GM Tube TOP PRN ×2 (07:00→20:21)
[2023-03-09 07:03] LABS: WHITE BLOOD CELL COUNT,WBC 10.7 x10^3/uL (4.0-10.0)
[2023-03-09 07:18] LABS: A/G RATIO 0.76; ALBUMIN 3.4 g/dL (3.4-5.0); BILIRUBIN TOTAL 0.3 mg/dL (0.2-1.0); EST CRCL DRUG DOSING (CG) 58.09 mL/min; POTASSIUM,K 4.2 mmol/L (3.5-5.1); PROTEIN TOTAL,TP 7.9 g/dL (6.4-8.2)
[2023-03-09 07:22] LABS: CALCIUM 9.5 mg/dL (8.5-10.1)
[2023-03-09 07:23] LABS: ANION GAP 7.2 mmol/L (5-15)
[2023-03-09] MEDS: Acetaminophen 325 MG Tab PO PRN ×2 (07:39→20:15)
[2023-03-09] MEDS: Nicotine 14 MG/24 Hr Patch TRDERM SCH (08:18)
[2023-03-09] MEDS: Cyanocobalamin (Vitamin B12) 250 MCG Tab PO SCH (08:20)
[2023-03-09] MEDS: Magnesium Oxide 400 MG Tab PO SCH (08:22)
[2023-03-09] MEDS: buPROPion 150 MG Tab.ER PO SCH (08:22)
[2023-03-09] MEDS: Potassium Chloride 20 MEQ Tab.ER PO SCH (08:22)
[2023-03-09] MEDS: Torsemide 20 MG Tab PO SCH ×2 (08:22→13:44)
[2023-03-09] MEDS: Enoxaparin 40 MG/0.4 ML Syringe SUBCUT SCH (08:22)
[2023-03-09] MEDS: OLANZapine 10 MG Tab PO SCH ×3 (08:22→20:12)
[2023-03-09] MEDS: Lactulose Soln 10 GM/15 ML 30 ML UD Cup PO SCH ×3 (08:23→20:15)
[2023-03-09] MEDS: Tiotropium Bromide 4 GM Inhalation Spray (2.5mcg/1 dose; 10 doses) INH SCH (08:24)
[2023-03-09] MEDS: valACYclovir 1,000 MG Tab PO SCH ×3 (09:42→20:14)
[2023-03-09] MEDS: QUEtiapine 25 MG Tab PO SCH (20:12)
[2023-03-09] MEDS: Melatonin 3 MG Tab PO SCH (20:12)
[2023-03-09] MEDS: Pregabalin 25 MG Cap PO SCH (20:13)
[2023-03-09] MEDS: Sertraline 100 MG Tab PO SCH (20:13)
[2023-03-09] MEDS: Pramipexole 0.5 MG Tab PO SCH (20:14)
[2023-03-10] MEDS: Cyclobenzaprine 10 MG Tab PO PRN ×2 (06:09→21:28)
[2023-03-10] MEDS: Acetaminophen 325 MG Tab PO PRN ×2 (06:10→21:27)
[2023-03-10] MEDS: Omeprazole 20 MG Cap.CR PO SCH (06:10)
[2023-03-10] MEDS: Menthol 10%/Methyl Salicylate 15% 85 GM Tube TOP PRN ×2 (06:11→21:29)
[2023-03-10] MEDS: Formoterol/Mometasone 200-5 MCG 13 GM Inhaler INH SCH ×2 (06:11→21:27)
[2023-03-10] MEDS: Potassium Chloride 20 MEQ Tab.ER PO SCH (08:48)
[2023-03-10] MEDS: buPROPion 150 MG Tab.ER PO SCH (08:48)
[2023-03-10] MEDS: Cyanocobalamin (Vitamin B12) 250 MCG Tab PO SCH (08:49)
[2023-03-10] MEDS: OLANZapine 10 MG Tab PO SCH ×3 (08:49→20:43)
[2023-03-10] MEDS: Enoxaparin 40 MG/0.4 ML Syringe SUBCUT SCH (08:49)
[2023-03-10] MEDS: Lactulose Soln 10 GM/15 ML 30 ML UD Cup PO SCH ×3 (08:49→20:45)
[2023-03-10] MEDS: Magnesium Oxide 400 MG Tab PO SCH (08:49)
[2023-03-10] MEDS: Torsemide 20 MG Tab PO SCH ×2 (08:49→13:43)
[2023-03-10] MEDS: valACYclovir 1,000 MG Tab PO SCH ×3 (08:49→20:42)
[2023-03-10] MEDS: Tiotropium Bromide 4 GM Inhalation Spray (2.5mcg/1 dose; 10 doses) INH SCH (08:53)
[2023-03-10] MEDS: Nicotine 14 MG/24 Hr Patch TRDERM SCH (08:58)
[2023-03-10] MEDS: Pregabalin 25 MG Cap PO SCH (20:42)
[2023-03-10] MEDS: Sertraline 100 MG Tab PO SCH (20:43)
[2023-03-10] MEDS: QUEtiapine 25 MG Tab PO SCH (20:43)
[2023-03-10] MEDS: Pramipexole 0.5 MG Tab PO SCH (20:43)
[2023-03-10] MEDS: Melatonin 3 MG Tab PO SCH (20:44)
[2023-03-11] MEDS: Cyclobenzaprine 10 MG Tab PO PRN ×2 (06:16→20:35)
[2023-03-11] MEDS: Acetaminophen 325 MG Tab PO PRN ×2 (06:17→20:36)
[2023-03-11] MEDS: Omeprazole 20 MG Cap.CR PO SCH (06:17)
[2023-03-11] MEDS: Formoterol/Mometasone 200-5 MCG 13 GM Inhaler INH SCH ×2 (06:18→20:39)
[2023-03-11] MEDS: Menthol 10%/Methyl Salicylate 15% 85 GM Tube TOP PRN ×2 (06:18→20:39)
[2023-03-11] MEDS: buPROPion 150 MG Tab.ER PO SCH (08:51)
[2023-03-11] MEDS: Cyanocobalamin (Vitamin B12) 250 MCG Tab PO SCH (08:51)
[2023-03-11] MEDS: Potassium Chloride 20 MEQ Tab.ER PO SCH (08:51)
[2023-03-11] MEDS: Lactulose Soln 10 GM/15 ML 30 ML UD Cup PO SCH ×3 (08:52→20:32)
[2023-03-11] MEDS: OLANZapine 10 MG Tab PO SCH ×3 (08:52→20:34)
[2023-03-11] MEDS: Magnesium Oxide 400 MG Tab PO SCH (08:52)
[2023-03-11] MEDS: valACYclovir 1,000 MG Tab PO SCH ×3 (08:52→20:36)
[2023-03-11] MEDS: Torsemide 20 MG Tab PO SCH ×2 (08:52→14:05)
[2023-03-11] MEDS: Enoxaparin 40 MG/0.4 ML Syringe SUBCUT SCH (08:54)
[2023-03-11] MEDS: Nicotine 14 MG/24 Hr Patch TRDERM SCH (08:56)
[2023-03-11] MEDS: Tiotropium Bromide 4 GM Inhalation Spray (2.5mcg/1 dose; 10 doses) INH SCH (09:01)
[2023-03-11] MEDS: Miconazole 2% Top Powder 45 GM Container TOP SCH (20:33)
[2023-03-11] MEDS: Pramipexole 0.5 MG Tab PO SCH (20:34)
[2023-03-11] MEDS: Pregabalin 25 MG Cap PO SCH (20:35)
[2023-03-11] MEDS: QUEtiapine 25 MG Tab PO SCH (20:35)
[2023-03-11] MEDS: Melatonin 3 MG Tab PO SCH (20:37)
[2023-03-11] MEDS: Sertraline 100 MG Tab PO SCH (20:37)
[2023-03-12] MEDS: Omeprazole 20 MG Cap.CR PO SCH (06:37)
[2023-03-12] MEDS: Formoterol/Mometasone 200-5 MCG 13 GM Inhaler INH SCH (06:38)
[2023-03-12] MEDS: Cyclobenzaprine 10 MG Tab PO PRN (06:38)
[2023-03-12] MEDS: Acetaminophen 325 MG Tab PO PRN (06:38)
[2023-03-12] MEDS: Menthol 10%/Methyl Salicylate 15% 85 GM Tube TOP PRN (06:39)
[2023-03-12] MEDS: Potassium Chloride 20 MEQ Tab.ER PO SCH (09:48)
[2023-03-12] MEDS: OLANZapine 10 MG Tab PO SCH ×2 (09:48→13:31)
[2023-03-12] MEDS: Torsemide 20 MG Tab PO SCH ×2 (09:48→13:31)
[2023-03-12] MEDS: Cyanocobalamin (Vitamin B12) 250 MCG Tab PO SCH (09:48)
[2023-03-12] MEDS: Magnesium Oxide 400 MG Tab PO SCH (09:48)
[2023-03-12] MEDS: buPROPion 150 MG Tab.ER PO SCH (09:48)
[2023-03-12] MEDS: Lactulose Soln 10 GM/15 ML 30 ML UD Cup PO SCH ×2 (09:48→13:31)
[2023-03-12] MEDS: Nicotine 14 MG/24 Hr Patch TRDERM SCH (09:49)
[2023-03-12] MEDS: Tiotropium Bromide 4 GM Inhalation Spray (2.5mcg/1 dose; 10 doses) INH SCH (09:49)
[2023-03-12] MEDS: Miconazole 2% Top Powder 45 GM Container TOP SCH (09:49)
[2023-03-12] MEDS: Enoxaparin 40 MG/0.4 ML Syringe SUBCUT SCH (09:50)
[2023-03-12] MEDS: valACYclovir 1,000 MG Tab PO SCH ×2 (11:09→13:32)
[2023-03-12 15:36] VITALS: BP 158/76; PULSE 90
== END 2023-03-12 15:20 | disposition home health service (06) | DRG 947 ==
LOC: VM.MS 12:09
PROVIDERS: ADMIT Internal Medicine; ATTEND Internal Medicine
DX: R53.1 Weakness (principal); I50.33 Acute on chronic diastolic (congestive) heart failure; B17.9 Acute viral hepatitis, unspecified; E46 Unspecified protein-calorie malnutrition; K76.82 Hepatic encephalopathy; E03.9 Hypothyroidism, unspecified; B02.9 Zoster without complications; S92.402A Displaced unspecified fracture of left great toe, initial encounter for closed fracture; W18.30XA Fall on same level, unspecified, initial encounter; S92.401A Displaced unspecified fracture of right great toe, initial encounter for closed fracture; F10.20 Alcohol dependence, uncomplicated; F41.9 Anxiety disorder, unspecified; I10 Essential (primary) hypertension; E78.00 Pure hypercholesterolemia, unspecified; F25.9 Schizoaffective disorder, unspecified; E78.5 Hyperlipidemia, unspecified; E86.0 Dehydration; G47.33 Obstructive sleep apnea (adult) (pediatric); R73.9 Hyperglycemia, unspecified; G62.9 Polyneuropathy, unspecified; B37.9 Candidiasis, unspecified; Y92.009 Unspecified place in unspecified non-institutional (private) residence as the place of occurrence of the external cause; Z79.899 Other long term (current) drug therapy; Z88.8 Allergy status to other drugs, medicaments and biological substances; Z99.81 Dependence on supplemental oxygen
CPT/HCPCS: 36415; 70450; 73100-RT; 80053; 85025; 94640; 94760; 95851-GO; 97110-GP; 97116-GP; 97165-GO; 97530-GP; 97535-GO; A9270-GY; J1650; J3490; J7620-GY